=== PATIENT | male | born 1965 | race Caucasian/White ===

== ENCOUNTER → 2021-10-01 13:42 | Outpatient (BNVA) | payer MEDICAID, SELFPAY | PROVIDERS: PCP Pediatrics; Visit Provider Nurse Practitioner Family | DX: G20 Parkinson's disease (principal); G43.909 Migraine, unspecified, not intractable, without status migrainosus; G24.5 Blepharospasm; G47.52 REM sleep behavior disorder | CPT/HCPCS: 99212 ==

== ENCOUNTER → 2022-01-21 07:46 | Outpatient (BNVA) | payer OTHER, SELFPAY | PROVIDERS: PCP Internal Medicine Sports Medicine; Visit Provider Nurse Practitioner Family | DX: G20 Parkinson's disease (principal); G47.52 REM sleep behavior disorder; G43.909 Migraine, unspecified, not intractable, without status migrainosus; G24.5 Blepharospasm | CPT/HCPCS: 99212 ==

== ENCOUNTER → 2022-04-24 07:49 | Outpatient (BNVA) | payer OTHER, SELFPAY | PROVIDERS: PCP Internal Medicine Sports Medicine; Visit Provider Nurse Practitioner Family | DX: G20 Parkinson's disease (principal); G24.5 Blepharospasm; G43.909 Migraine, unspecified, not intractable, without status migrainosus; G47.52 REM sleep behavior disorder; Z79.899 Other long term (current) drug therapy | CPT/HCPCS: 99212 ==

== ENCOUNTER 2022-05-29 10:00 | Outpatient (RCR) | payer OTHER, SELFPAY ==
[2022-04-08 11:01] VITALS: BP 124/78; PULSE 93
--- NOTE | 2022-04-08 12:54 | MHC.PT.EP ---
[facility] [place] Office [place] Office [place] Office [address] Sandeep Faria [address] [phone] F: [phone] F: [phone] F: [phone] F: [phone] Physical Therapy Plan of Care Date of Evaluation: Date of Surgery: N/A Diagnosis: Parkinson Disease and Migraines Assessment: Hu is a 56 yo M referred to PT for Parkinson disease (diagnosed in 2019) and migraines. Upon exam his balance and functional capabilities are reported to be more of a concern then headaches. He receives assistance with all ADLs. He will occasionally go on walks in his yard and mow the lawn but does have a history of reported falls. He ambulates with a cane and reports he feels his R side is what causes him issues. Upon examination he presents with gross B weakness in LE and UE, decreased ROM in R hip, impaired balance and altered body mechanics. Hu will benefit from skilled PT to address the aforementioned impairments and work to maintain his functional capabilities. Frequency and Duration: The patient will be seen 2/ week for 6 weeks Short Term Goals: Patient will be able to stand with narrow base of support for 30 seconds without retro pulsing to increase stability while clothing and brushing teeth in 3 weeks. patient will perform TUG with a time of no greater then 14.8 seconds (decreasing risk of falls) in 3 weeks. 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 Patient will demonstrate a 1/2 increase in gross B hip strength to increase ability to ambulate for extended periods of time and on uneven surfaces in 6 weeks. Treatment Plan: Modalities to reduce pain, spasms and effusion. Manual therapy to restore motion and function. Therapeutic exercise to improve strength and flexibility. Neuromuscular re-education for posture and balance. Therapeutic activities to return to functional activities of daily living. Electronically signed by: Griselda Rosales PT DPT Please sign and return to therapist. Thank you for your referral.
--- NOTE | 2022-05-30 08:35 | MHC.PT.DC ---
[facility] [place] Office [place] Office [place] Office [address] Sandeep Faria [address] [phone] F: [phone] F: [phone] F: [phone] F: [phone] Physical Therapy Discharge Report Diagnosis: Parkinson Disease and Migraines Date of Surgery: N/A Date of Evaluation: 04/08/22 Date of Discharge: 05/30/22 Treatments to Date: 10 Cancellations to Date: 0 No Shows to Date: 0 Discharge Status: Achieved Goals Improved Function Independent with HEP Discharge Summary: Hu has completed 10 PT visits. He has improved significantly and is independent with all HEPs. He is therefore being d/c from PT. Electronically signed by: Griselda Rosales PT DPT Please sign and return to therapist. Thank you for your referral.
== END 2022-05-30 08:35 | disposition home or self-care (01) ==
LOC: HO.PT 10:00
PROVIDERS: Visit Provider Nurse Practitioner Family
DX: G20 Parkinson's disease (principal); G43.909 Migraine, unspecified, not intractable, without status migrainosus; G24.5 Blepharospasm
CPT/HCPCS: 97110; 97162; 97530

== ENCOUNTER → 2022-05-31 09:16 | Outpatient (BNVA) | payer OTHER, SELFPAY | PROVIDERS: PCP Internal Medicine Sports Medicine; Visit Provider Psychiatry & Neurology Neurology | DX: G24.5 Blepharospasm (principal) | CPT/HCPCS: 64612; 99211; J0585 ==

== ENCOUNTER → 2022-07-22 08:19 | Outpatient (BNVA) | payer OTHER, SELFPAY | PROVIDERS: PCP Internal Medicine Sports Medicine; Visit Provider Nurse Practitioner Family | DX: G20 Parkinson's disease (principal) | CPT/HCPCS: 99212 ==

== ENCOUNTER → 2022-09-02 10:24 | Outpatient (BNVA) | payer OTHER, SELFPAY | PROVIDERS: PCP Internal Medicine Sports Medicine; Visit Provider Psychiatry & Neurology Neurology | DX: G24.5 Blepharospasm (principal) | CPT/HCPCS: 64612; 99211; J0585 ==

== ENCOUNTER → 2022-12-19 07:48 | Outpatient (BNVA) | payer OTHER, SELFPAY | PROVIDERS: PCP Internal Medicine Sports Medicine; Visit Provider Psychiatry & Neurology Neurology | DX: G24.5 Blepharospasm (principal) | CPT/HCPCS: 64612; 99211; J0585 ==

== ENCOUNTER → 2023-01-28 07:40 | Outpatient (BNVA) | payer OTHER, SELFPAY | PROVIDERS: PCP Internal Medicine Sports Medicine; Visit Provider Nurse Practitioner Family | DX: G20 Parkinson's disease (principal); G47.52 REM sleep behavior disorder; G24.5 Blepharospasm; G43.909 Migraine, unspecified, not intractable, without status migrainosus; F32.A Depression, unspecified | CPT/HCPCS: 99212 ==

== ENCOUNTER → 2023-03-24 09:37 | Outpatient (BNVA) | payer OTHER, SELFPAY | PROVIDERS: PCP Internal Medicine Sports Medicine; Visit Provider Psychiatry & Neurology Neurology | DX: G24.5 Blepharospasm (principal) | CPT/HCPCS: 64612; 99211; J0585 ==

== ENCOUNTER 2023-06-03 10:09 | Outpatient (AMB) | payer OTHER, SELFPAY ==
--- NOTE | 2023-06-03 10:32 | A.OFFVIS_ITS ---
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 Allergies atorvastatin [From Lipitor] Allergy (Mild, Verified 06/03/23 10:33) pain Medication List - Last Reconciled 06/03/23 by HANNAH Gomez amlodipine 10 mg PO DAILY carbidopa-levodopa 25-100 mg ER 1 tab PO QID 90 days clonazepam 2 mg PO BEDTIME 30 days clonazepam 2 mg (2 x 1 mg) PO BEDTIME 30 days dulaglutide (Trulicity) 30 mg subcut QWEEK empagliflozin (Jardiance) 25 mg PO DAILY glipizide ER 10 mg PO BID ketorolac 0.5% 1 drp ophthalmic (eye) QID lancets ([employer] Delica Plus Lancet) As directed magnesium oxide 400 mg PO DAILY 30 days melatonin 10 mg PO DAILY metformin 1,000 mg PO .twice a day omeprazole 40 mg PO DAILY onabotulinumtoxinA (Botox) 100 units IM ONCE 12 weeks quetiapine 50 mg (2 x 25 mg) PO BEDTIME 90 days riboflavin (vitamin B2) 400 mg PO DAILY 30 days simvastatin 20 mg PO BEDTIME sumatriptan succinate take 1 tab at onset of headache; if no relief, may repeat 1 tab after at least 2 hrs; max = 2 tabs/24 hrs PO valsartan-hydrochlorothiazide 160-25 mg 1 tab PO DAILY HPI HPI Comments History of Present Illness Details 57-yr-old male presents for f/u visit, accompanied by his . Pt denies any significant interval medical changes. However, his PCP tried to start him on simvastatin, however he stopped it as it caused body pains. Pt's current PD medication regimen: Sinemet ER 25-100mg 1 tab 5am, 11am, 5pm, 9- 10pm Do medication effects last between doses:? Just lasting between doses ADL's: helping, has a shower bench Speech: Voice is changing- softer/slurred. Denies oral/throat pain. Swallowing: No issues. May bite his tongue at times. Cough: None Drooling: Yes Orthostatic lightheadedness: Yes- transient mild Constipation: Yes, a bit increased even w/ eating higher fiber foods. Considering trying Miralax. Freezing: At times. Stiffness: Can be more stiff, if more active, will be more sore the following day. His toes may feel tight, numb/tingly Tremor: Usually mild Gait/Falls: No falls. Hallucinations: He continues to have hallucinations- feels like someone is there but no one is. Memory: Can be forgetful, forgetting words, losing his train of thought- in Lao or [place] Island[place] Mood: Varies, feels less depressed, more easily frustrated/angry if people do not understand him. He has not seen a therapist yet.. Sleep: He is having some REM sleep behaviors. He may start to roll out of the bed- but the bedrail helps. He is compliant w/ clonazapem and quetiapine. Exercise: Does the previous PT exercises at times. Other: notes that he is having right lower facial spasms. Beofre starting botox- his symptoms were eye spasms. His migraine attacks are still right sided, lately not as strong but may last a few days. Sumatriptan is usually helpful. ? [facility] Medical History (Updated 06/03/23 @ 12:55 by HANNAH Gomez) Diabetes Family History Father Cancer Mother Hyperlipidemia Diabetes Social History (Updated 06/03/23 @ 10:39 by Angelina Teageu CMA) Alcohol intake: never Patient Tobacco Use Status: Former Tobacco user Tobacco use type: Cigar Cigarettes Per Day: 1 Review of Systems Const All systems reviewed & are unremarkable except as noted in HPI and below Physical Exam Vital Signs: Last Vital Signs Pulse 95 06/03/23 10:39 BP 120/78 06/03/23 10:39 Pulse Ox 97 06/03/23 10:39 Oxygen Delivery Method Room Air 06/03/23 10:39 Const General: cooperative and no acute distress Orientation/consciousness: patient oriented x3 HEENT Head: Yes normocephalic Resp Effort & Inspection: normal respiratory effort and able to speak in complete sentences Neuro Other: General:? Right facial asymmetry: eye decreased palpebral fissure- mild. Right lower facial droop. Right lower facial and less so right lower eyelid- twitching. Expression:? Decreased expression and blink Voice:? Soft voice, speech dysarthric Tremor:? No tremor noted today Tone:? Bilateral upper extremity tone more so on the right Dyskinesia:? None FFM:? Mild bradykinesia more so on right Foot taps:? Mild bradykinesia worse on right Gait:? Slow to stand, slight stooped, slightly decreased arm swing short steps steady with cane Psych:? Pleasant affect. 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 Code(s): G20 - Parkinson's disease (2) Blepharospasm of right eye: Comment: s/p right orbital fracture- managed w/ Botox by Dr Ambrose. Code(s): G24.5 - Blepharospasm (3) REM sleep behavior disorder: Code(s): G47.52 - REM sleep behavior disorder (4) Migraine, unspecified, not intractable, without status migrainosus: Comment: childhood onset Code(s): G43.909 - Migraine, unspecified, not intractable, without status migrainosus (5) Slurred speech: Code(s): R47.81 - Slurred speech (6) Hemifacial spasm of right side of face: Code(s): G51.31 - Clonic hemifacial spasm, right Plan Pt advised to undergo brain MRI w/wo- as pt now has slurred speech in addition to right facial assymetry/droop, right hemifascial spasm. 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 For right eye blepherospasm: Continue Botox up to 100 units in right eye/cheek muscles q 12 weeks- pt has f/u appt w/ Dr Hernandez. ? For Parkinson's and REM sleep behavior disorder: Continue Sinemet CR 25-100mg 1 tab QID- 5am, 11am, 5pm, 9pm. Continue Quetiapine 25mg- 2 tabs (50mg) qhs- monitor hallucinations. Continue Melatonin 10mg. Continue Clonazepam to 2 mg for REM sleep behaviors. For constipation- Continue dietary fiber, taking prunes/prune juice. Trial Miralax prn. For lightheadedness prevention- take 1 small bottle sports drink in am. For mood- therapy as ordered- pt is on waiting list. Baseline neuropsych eval pending. Try to increase exercise- walking, PT exercises, goal of > 30 minutes per day. Future considerations: Nuplazid, Rytary. ? For Migraine- Continue Sumatriptan prn. Orders: Orders MR head/brain wo/w con Today G51.31 - Clonic hemifacial spasm, right, R29.810 - Facial weakness, R47.81 - Slurred speech Basic Metabolic Panel Today E11.9 - Type 2 diabetes mellitus without complications Medications: New polyethylene glycol 3350 (Miralax) 17 grams PO DAILY PRN 510 grams 3RF constipation 30 days Coding Level of Care Code Est Pt Level 4 (00504) Diagnoses Parkinson disease G20 Blepharospasm of right eye G24.5 REM sleep behavior disorder G47.52 Migraine, unspecified, not intractable, without status migrainosus G43.909 Slurred speech R47.81 Hemifacial spasm of right side of face G51.31
[2023-06-03 10:39] VITALS: BP 120/78; PULSE 95; O2SAT 97
== END 2023-06-03 11:41 | disposition home or self-care (01) ==
PROVIDERS: Visit Provider Nurse Practitioner Family
DX: G20 Parkinson's disease (principal); G24.5 Blepharospasm; G47.52 REM sleep behavior disorder; G43.909 Migraine, unspecified, not intractable, without status migrainosus; R47.81 Slurred speech; G51.31 Clonic hemifacial spasm, right
CPT/HCPCS: 99214

== ENCOUNTER → 2023-06-03 10:09 | Outpatient (BNVA) | payer OTHER, SELFPAY | PROVIDERS: Visit Provider Nurse Practitioner Family | DX: G20 Parkinson's disease (principal); G24.5 Blepharospasm; G47.52 REM sleep behavior disorder; G43.909 Migraine, unspecified, not intractable, without status migrainosus; R47.81 Slurred speech; G51.31 Clonic hemifacial spasm, right; Z79.899 Other long term (current) drug therapy | CPT/HCPCS: 99212 ==

== ENCOUNTER 2023-07-09 16:41 | Outpatient (REF) | payer OTHER, SELFPAY ==
--- NOTE | ~2023-07-09 | MR_ITS ---
EXAMINATION: MR BRAIN WITHOUT AND WITH CONTRAST CLINICAL INFORMATION: Slurred speech. COMPARISON: None available. TECHNIQUE: Multiplanar, multisequence MRI of the brain was obtained before and after the intravenous administration of 10 mL Gadavist. FINDINGS: No abnormal intraparenchymal enhancement. There is apparent thickening of the left superior parietal gyrus cortex with mild blurring of the jacobson-white matter junction. There. No discrete internal mass identified. This area appears to extend superiorly and posteriorly into probable arachnoid granulations. No definitive defect through the cranium is identified. No acute intracranial hemorrhage or infarct. Suggestion of chronic infarct in the right basal ganglia. Scattered and confluent periventricular white matter T2/FLAIR hyperintensities, nonspecific however commonly seen with small vessel ischemic disease. No midline shift or hydrocephalus. No acute extra-axial fluid collections. The osseous structures are unremarkable. The pituitary gland, pineal gland and remaining midline structures are unremarkable. No orbital pathology. Mild mucosal thickening of the paranasal sinuses. The mastoid air cells are clear. MR/MR head/brain wo/w con IMPRESSION: -No acute intracranial abnormality. -Apparent thickening of the left superior parietal gyrus cortex with mild blurring of the jacobson-white matter junction. 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 Additionally, there is suggestion of this abnormal cortex herniating into arachnoid granulations. Several digital small foci of brain herniation into arachnoid granulations are seen along the frontoparietal convexity. Recommend 3T MRI brain without contrast for better evaluation of cortex/white matter in this region.
[2023-07-09] MEDS: gadobutroL 10 ML VIAL IVPUSH (17:28)
== END 2023-07-09 16:42 | disposition home or self-care (01) ==
LOC: HO.MRI 16:41
PROVIDERS: PCP Internal Medicine Sports Medicine; Visit Provider Nurse Practitioner Family
DX: R47.81 Slurred speech (principal); G51.31 Clonic hemifacial spasm, right; R29.810 Facial weakness
CPT/HCPCS: 70553; A9585

== ENCOUNTER 2023-07-29 10:09 | Outpatient (AMB) | payer OTHER, SELFPAY ==
--- NOTE | 2023-07-29 10:18 | A.OFFVIS_ITS ---
Intake Vital Signs 07/29/23 10:20 Height 5 ft 10 in Weight 213 lb 2 oz BMI 30.6 BP 118/72 Blood Pressure Location Lt brachial Position Sitting Respiration 17 Pulse 94 Pulse Source Pulse Oximeter Pulse Oximetry (%) 97 Oxygen Delivery Method Room Air Intake Visit Reasons: Botox-confirmed Intake Note: Pt presents to the office for Botox injections. 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 Allergies atorvastatin [From Lipitor] Allergy (Mild, Verified 07/29/23 10:19) pain Medication List - Last Reconciled 07/29/23 by Taryn Hernandez MD amlodipine 10 mg PO DAILY carbidopa-levodopa 25-100 mg ER 1 tab PO QID 90 days clonazepam 2 mg PO BEDTIME 30 days clonazepam 2 mg (2 x 1 mg) PO BEDTIME 30 days dulaglutide (Trulicity) 30 mg subcut QWEEK empagliflozin (Jardiance) 25 mg PO DAILY glipizide ER 10 mg PO BID ketorolac 0.5% 1 drp ophthalmic (eye) QID lancets ([employer] Delica Plus Lancet) As directed magnesium oxide 400 mg PO DAILY 30 days melatonin 10 mg PO DAILY metformin 1,000 mg PO .twice a day omeprazole 40 mg PO DAILY onabotulinumtoxinA (Botox) 100 units IM ONCE 12 weeks polyethylene glycol 3350 (Miralax) 17 grams PO DAILY PRN 30 days quetiapine 50 mg (2 x 25 mg) PO BEDTIME 90 days riboflavin (vitamin B2) 400 mg PO DAILY 30 days simvastatin 20 mg PO BEDTIME sumatriptan succinate take 1 tab at onset of headache; if no relief, may repeat 1 tab after at least 2 hrs; max = 2 tabs/24 hrs PO valsartan-hydrochlorothiazide 160-25 mg 1 tab PO DAILY HPI HPI Comments History of Present Illness Details 58y/o male comes for treatment of her bl epherospasm , hemifacial spasm with botox Botulinum toxin type A Lot no C [id number] X 1 Exp 10/2025 was diluted with 1 cc of normal saline at a concentration of 10units in 0.1 cc. Side effects were discussed and an informed consent was obtained. Muscles injected Right Lateral canthus - 15 units Right Lateral Lower eyelid-15units Right Medial lower eyelid- 5 units Right Nasolabial fold 5 units Right zygomaticus 10 units right lower lip 5 units Total used 55 units discarded 45 units PFSH Medical History Diabetes Family History Father Cancer Mother Hyperlipidemia Diabetes Social History Alcohol intake: never Patient Tobacco Use Status: Former Tobacco user Tobacco use type: Cigar Cigarettes Per Day: 1 Physical Exam Vital Signs: Last Vital Signs Pulse 94 07/29/23 10:20 Resp 17 07/29/23 10:20 BP 118/72 07/29/23 10:20 Pulse Ox 97 07/29/23 10:20 Oxygen Delivery Method Room Air 07/29/23 10:20 BMI result Body Mass Index 30.6 Neuro Other: Right Hemifacial spasm Office Procedures Botulinum toxin Injection 05468 - Facial Nerve Procedure code (CPT) selection complete Office Meds onabotulinumtoxinA 100 unit solution for injection Performing Provider: Taryn Hernandez MD Performing Location: [facility] Administered by: Taryn Hernandez MD on 07/29/23 11:12 Dose Route Admin Location Dispensed Lot Number Expiration Date [facility] Infectious Diseases Physician 100 unit subcut 100 units [id number] 10/30/25 [id number] [id number] Comments: see HPI Assessment & Plan Assessment & Plan (1) Blepharospasm of right eye: Comment: s/p right orbital fracture- managed w/ Botox by Dr Ambrose. Code(s): G24.5 - Blepharospasm Plan Patient tolerated the procedure well. He will call with any side effects Orders: Orders AMB Botulinum toxin Injection Today G51.31 - Clonic hemifacial spasm, right Coding Level of Care Code Est Pt Level 1 (11053) Diagnoses Blepharospasm of right eye G24.5 CPT Codes Botox Injection - Botox 2: 19953 - Facial Nerve ([id number])
[2023-07-29 10:20] VITALS: BP 118/72; PULSE 94; RESP 17; O2SAT 97; BMI 30.6
== END 2023-07-29 10:55 | disposition home or self-care (01) ==
PROVIDERS: PCP Internal Medicine Sports Medicine; Visit Provider Psychiatry & Neurology Neurology
DX: G24.5 Blepharospasm (principal)
CPT/HCPCS: 64612

== ENCOUNTER → 2023-07-29 10:09 | Outpatient (BNVA) | payer OTHER, SELFPAY | PROVIDERS: PCP Internal Medicine Sports Medicine; Visit Provider Psychiatry & Neurology Neurology | DX: G24.5 Blepharospasm (principal) | CPT/HCPCS: 64612; 99211; J0585 ==

== ENCOUNTER 2023-09-04 10:07 | Outpatient (REF) | payer OTHER, SELFPAY ==
--- NOTE | ~2023-09-04 | US_ITS ---
EXAMINATION: US EXTRACRANIAL CAROTID DUPLEX, BILATERAL CLINICAL INFORMATION: Weakness right face, intracranial carotid stenosis. Diabetes and hyperlipidemia. COMPARISON: None available. TECHNIQUE: Real-time ultrasound and Doppler techniques (integrating B-mode 2-D vascular images, Doppler spectral analysis and color-flow Doppler imaging) were utilized to interrogate the extracranial carotid arteries, the vertebral arteries and proximal subclavian arteries bilaterally. The degree of stenosis is determined by criteria similar to NASCET. FINDINGS: Right Side: 1. There is no atherosclerotic plaque seen in the bifurcation/proximal ICA region. 2. The common carotid artery PSV proximally is 120 cm/s and distally 86 cm/s. 3. The proximal internal carotid artery velocities are 56 cm/s systolic and 18 cm/s diastolic. 4. The proximal external carotid artery PSV is 101 cm/s. 5. The vertebral artery shows antegrade flow. 6. The subclavian artery waveforms are normal. Left Side: 1. There is no atherosclerotic plaque seen in the bifurcation/proximal ICA region. 2. The common carotid artery PSV proximally is 107 cm/s and distally 94 cm/s. 3. The proximal internal carotid artery velocities are 53 cm/s systolic and 8 cm/s diastolic. 4. The proximal external carotid artery PSV is 92 cm/s. 5. The vertebral artery shows antegrade flow. 6. The subclavian artery waveforms are normal. US/US carotid duplex BI IMPRESSION: 1. RIGHT: Normal right internal carotid artery without atherosclerotic plaque or hemodynamically significant stenosis. 2. LEFT: Normal left internal carotid artery without atherosclerotic plaque or hemodynamically significant stenosis.
== END 2023-09-04 10:08 | disposition home or self-care (01) ==
LOC: HO.HMGCX 10:07
PROVIDERS: PCP Internal Medicine Sports Medicine; Visit Provider Nurse Practitioner Family
DX: R29.810 Facial weakness (principal); I65.29 Occlusion and stenosis of unspecified carotid artery; E78.5 Hyperlipidemia, unspecified; E11.9 Type 2 diabetes mellitus without complications
CPT/HCPCS: 93880

== ENCOUNTER 2023-09-24 09:10 | Outpatient (AMB) | payer OTHER, SELFPAY ==
[2023-09-24 09:34] VITALS: BP 130/88; PULSE 94; O2SAT 95; BMI 30.8
--- NOTE | 2023-09-24 09:34 | A.OFFVIS_ITS ---
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: No Accompanied by: Spouse Allergies atorvastatin [From Lipitor] Allergy (Mild, Verified 09/24/23 09:36) pain Medication List - Last Reconciled 09/24/23 by HANNAH Gomez amlodipine 10 mg PO DAILY carbidopa-levodopa 25-100 mg ER 1 tab PO QID 90 days clonazepam 2 mg PO BEDTIME 30 days dulaglutide (Trulicity) 3 mg subcut QWEEK empagliflozin (Jardiance) 25 mg PO DAILY ezetimibe 10 mg PO DAILY glipizide ER 10 mg PO BID ketorolac 0.5% 1 drp ophthalmic (eye) QID lancets ([employer] Delica Plus Lancet) As directed magnesium oxide 400 mg PO DAILY 30 days melatonin 10 mg PO DAILY PRN metformin 1,000 mg PO .twice a day omeprazole 40 mg PO DAILY onabotulinumtoxinA (Botox) 100 units IM ONCE 12 weeks polyethylene glycol 3350 (Miralax) 17 grams PO DAILY PRN 30 days quetiapine 50 mg (2 x 25 mg) PO BEDTIME 90 days riboflavin (vitamin B2) 400 mg PO DAILY 30 days sumatriptan succinate take 1 tab at onset of headache; if no relief, may repeat 1 tab after at least 2 hrs; max = 2 tabs/24 hrs PO valsartan-hydrochlorothiazide 160-25 mg 1 tab PO DAILY HPI HPI Comments History of Present Illness Details 58-yr-old male presents for f/u visit, a ccompanied by his . 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 And abnormal cortex herniating into arachnoid granulations w/ several digital small foci of brain herniation into arachnoid granulations along the frontoparietal convexity. Pt then underwent f/u MRI brain w/o w/ focus on parietal/cortex region- which showed thickening of the gyri with loss of jacobson-white differentiation in the left superior medial parietal cortex w/o edema. Cortex slightly herniates into a skull defect in this area, w/o calvarium erosion, but the defect extends through the inner and outer tables to the scalp. This defect has enlarged since the study dated 11/16/2013. Findings suggestive of a hemangioma. Pt was referred to Dr Magana, neurosurgeon, and advised to undergo CTA head to determine if there are vascular connections between the left superior medial parietal cortex and the presumed hemangioma. Unfortunately, report did not specifically address this. However, it did report a 50% stenosis supraclinoid of Right ICA. Pt brings a copy of Dr Brantley last notes, which states that she planned to reach out to the radiologist at [email or web address] to discuss this specific concern as this will affect tx decision. Pt is worried that they have not heard anything yet on this. He can still have episodes of slurred speech and freezing in his speech. Still having some right lower facial spasms. Before starting botox- his symptoms were eye spasms. Pt reports he has been having a mild, aching, tender constant headache x's past 3-4 months- starts in the right religion and moves linearly to the upper back of the head. A/w some right eye blurring and difficulty tracking. Not a/w photophobia, phonophobia. Uisng Tylenol prn. This is different than his typical migraine which is a/w photophobia, phonophobia, activity intolerance, blurry vision. Pt's current PD medication regimen: CD-LD ER 25-100mg 1 tab qid- 5am, 11am, 5pm, 9pm, Clonazepam 2mg qhs, quetiapine 50mg qhs. Do medication effects last between doses: Sometimes may start shaking prior to next dose. Feels Parkinson's is overall stable, but gradually progressing. ADL's: helping, has a shower bench Speech: Voice- softer/slurred. Denies oral/throat pain. Swallowing: Some difficulty swallowing- coughing even on fluids. May bite his tongue at times while chewing Cough: None Drooling: Yes Orthostatic lightheadedness: Yes- transient mild Constipation: Stable- eating higher fiber foods and Miralax helps. Freezing: At times. Stiffness: Some stiffness- especially in shoulders. Tremor: Usually mild Gait/Falls: No falls. Using a cane Hallucinations: He continues to have hallucinations- feels like someone is there but no one is. Memory: Can be forgetful, forgetting words, losing his train of thought- in Maltese or Azeri Mood: Varies, feels less depressed, more easily frustrated/angry if people do not understand him. He has not seen a therapist yet.. Sleep: He is having some REM sleep behaviors. Once found him just sitting up in bed- he did not why. He is compliant w/ clonazapem and quetiapine. Exercise: Not doing his PT exercises as much. States his statin tx- caused body aches, making it difficult. 09/04/23, US/US carotid duplex BI IMPRESSION: 1. RIGHT: Normal right internal carotid artery without atherosclerotic plaque or hemodynamically significant stenosis. 2. LEFT: Normal left internal carotid ar mary ellen without atherosclerotic plaque or hemodynamically significant stenosis. 08/19/23, CTA head w/ contrast: IMPRESSION: Atherosclerosis of the intracranial internal carotid arteries resulting in approximate 50% stenosis supraclinoid RIGHT internal carotid artery. No additional significant stenosis or findings of aneurysm. The remainder intracranial vasculature without significant stenosis or aneurysm. No findings of an acute intracranial process. 07/30/23, Brain MRI w/o contrast: IMPRESSION: There is thickening of the gyri with loss of jacosbon-white differentiation in the left superior medial parietal cortex. This was described in the previous report dated 06/29/2023. This was not present on the s tudy dated 11/16/2013. There is no edema. The cortex slightly herniates into a skull defect in this area. The calvarium does not appear to be eroded, but the defect does extend through the inner and outer tables to the scalp. This defect has enlarged since the study dated 11/16/2013. The etiology of this is unclear. I suspect this may represent a hemangioma of the calvarium. Perhaps this shares a vascular supply with the underlying brain parenchyma, possibly causing the parenchymal changes and possibly even the slurred speech symptoms noted on the previous MRI. A contrast enhanced MRI and/or CTA may be helpful for further evaluation. 07/09/23, MRI brain w/wo contrast: MR/MR head/brain wo/w con IMPRESSION: -No acute intracranial abnormality. -Apparent thickening of the left superio r parietal gyrus cortex with mild blurring of the jacobson-white matter junction. 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 Additionally, there is suggestion of this abnormal cortex herniating into arachnoid granulations. Several digital small foci of brain herniation into arachnoid granulations are seen along the frontoparietal convexity. Recommend 3T MRI brain without contrast for better evaluation of cortex/white matter in this region. [facility] Medical History (Updated 09/24/23 @ 22:34 by HANNAH Gomez) Parkinson disease Diabetes Surgical History (Updated 09/24/23 @ 09:42 by Sunshine Hernandez MA) H/O hernia repair History of vasectomy History of carpal tunnel release Family History Father Cancer Mother Hyperlipidemia Diabetes Social History Alcohol intake: never Patient Tobacco Use Status: Former Tobacco user Tobacco use type: Cigar Cigarettes Per Day: 1 Review of Systems Const All systems reviewed & are unremarkable except as noted in HPI and below Physical Exam Vital Signs: Last Vital Signs Pulse 94 09/24/23 09:34 BP 130/88 09/24/23 09:34 Pulse Ox 95 09/24/23 09:34 Oxygen Delivery Method Room Air 09/24/23 09:34 BMI result Body Mass Index 30.8 Const General: cooperative and no acute distress Resp Effort & Inspection: normal respiratory effort and able to speak in complete sentences Neuro Other: General:? A&O x's 3. Right facial asymmetry: eye decreased palpebral fissure- mild. Right lower facial droop. Right eye and lower face- no twitching seen today. Expression:? Decreased expression and blink Voice/Speech:? Soft voice, mild dysarthria, occasional bradyphrenia Tremor:? No tremor noted today Tone:? Bilateral upper extremity tone more so on the right Dyskinesia:? None FFM:? Mild bradykinesia more so on right Foot taps:? Mild bradykinesia worse on right Gait:? Slow to stand, slight stooped, slightly decreased arm swing short steps steady with cane Psych:? Pleasant affect. Assessment & Plan Assessment & Plan (1) Swallowing difficulty: Code(s): R13.10 - Dysphagia, unspecified (2) Tongue biting: Code(s): K14.8 - Other diseases of tongue (3) Cognitive dysfunction: Code(s): F09 - Unspecified mental disorder due to known physiological condition (4) Hemifacial spasm of right side of face: Code(s): G51.31 - Clonic hemifacial spasm, right (5) Parkinson's disease without dyskinesia: Code(s): G20.A1 - Parkinson's disease without dyskinesia, without mention of fluctuations (6) REM sleep behavior disorder: Code(s): G47.52 - REM sleep behavior disorder (7) Abnormal finding on MRI of brain: Comment: left superior medial parietal cortex 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 We will f/u w/ Dr Magana- ? if she has been able to clarify CTA results. Upon review, pt may wish to have 2nd opinion. Monito new onset headache, slurred speech, cogntive difficulties. For right eye blepherospasm: Continue Botox up to 100 units in right eye/cheek muscles q 12 weeks- pt has f/u appt w/ Dr Hernandez. ? For Parkinson's and REM sleep behavior disorder: Increase Sinemet CR 25-100mg from 1 tab QID- 5am, 11am, 5pm, 9pm to 1 tab 5 x's per day- 5am, 9am, 1pm, 5pm, 9pm- in hopes this reduces cognitive diff, bradyphrenia, tremor, swallowing issues. Continue Quetiapine 25mg- 2 tabs (50mg) qhs- monitor hallucinations. Continue Melatonin 10mg. Continue Clonazepam to 2 mg for REM sleep behaviors. Start MILLWRIGHT INSTRUCTOR- for eval of chewing, swallowing and cognitive difficulties. For constipation- Continue dietary fiber, taking prunes/prune juice. Miralax prn. For lightheadedness prevention- take 1 small bottle sports drink in am. For mood- therapy as ordered- pt is on waiting list. Baseline neuropsych eval pending. Try to increase exercise- walking, PT exercises, goal of > 30 minutes per day. Future considerations: Nuplazid, Rytary. ? For Migraine- Continue Sumatriptan prn. Orders: Referrals Speech and Hearing Referral F09 - Unspecified mental disorder due to known physiological condition, G20 - Parkinson's disease, G51.31 - Clonic hemifacial spasm, right, K14.8 - Other diseases of tongue, R13.10 - Dysphagia, unspecified Medications: Changed From carbidopa-levodopa 25-100 mg ER 1 tab PO QID 90 days 360 tabs 2RF To carbidopa-levodopa 25-100 mg ER 1 tab orally 5 x's per day; 90 days 450 tabs 2RF Coding Level of Care Code Est Pt Level 5 (80675) Diagnoses Swallowing difficulty R13.10 Tongue biting K14.8 Cognitive dysfunction F09 Hemifacial spasm of right side of face G51.31 Parkinson's disease without dyskinesia G20.A1 REM sleep behavior disorder G47.52 Abnormal finding on MRI of brain R90.89 Time Spent (min) 65 Comment 45 min spent directly w/ pt, > 20 min spent reviewing chart, imaging, notes, documenting
== END 2023-09-24 11:03 | disposition home or self-care (01) ==
PROVIDERS: PCP Internal Medicine Sports Medicine; Visit Provider Nurse Practitioner Family
DX: G20.A2 Parkinson's disease without dyskinesia, with fluctuations (principal); R13.10 Dysphagia, unspecified; G51.31 Clonic hemifacial spasm, right; R90.89 Other abnormal findings on diagnostic imaging of central nervous system; K14.8 Other diseases of tongue; R41.89 Other symptoms and signs involving cognitive functions and awareness; G47.52 REM sleep behavior disorder
CPT/HCPCS: 99215

== ENCOUNTER → 2023-09-24 09:10 | Outpatient (BNVA) | payer OTHER, SELFPAY | PROVIDERS: PCP Internal Medicine Sports Medicine; Visit Provider Nurse Practitioner Family | DX: R13.10 Dysphagia, unspecified (principal); G20.A1 Parkinson's disease without dyskinesia, without mention of fluctuations; K14.8 Other diseases of tongue; F09 Unspecified mental disorder due to known physiological condition; G51.31 Clonic hemifacial spasm, right; G47.52 REM sleep behavior disorder; R90.89 Other abnormal findings on diagnostic imaging of central nervous system | CPT/HCPCS: 99212 ==

== ENCOUNTER 2023-10-29 07:45 | Outpatient (AMB) | payer OTHER, SELFPAY ==
--- NOTE | 2023-10-29 07:49 | MHC.OFFVIS ---
Intake Vital Signs 10/29/23 07:50 Weight 215 lb 2 oz BP 112/76 Blood Pressure Location Rt brachial Position Sitting Respiration 17 Pulse 89 Pulse Source Pulse Oximeter Pulse Oximetry (%) 98 Oxygen Delivery Method Room Air Intake Visit Reasons: Botox appt-CONFIRMED Intake Note: Pt presents for Botox injections. 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 Allergies atorvastatin [From Lipitor] Allergy (Mild, Verified 10/29/23 07:49) pain Medication List - Last Reconciled 10/29/23 by Taryn Hernandez MD amlodipine 10 mg PO DAILY carbidopa-levodopa 25-100 mg ER 1 tab orally 5 x's per day; 90 days clonazepam 2 mg PO BEDTIME 30 days dulaglutide (Trulicity) 3 mg subcut QWEEK empagliflozin (Jardiance) 25 mg PO DAILY ezetimibe 10 mg PO DAILY glipizide ER 10 mg PO BID ketorolac 0.5% 1 drp ophthalmic (eye) QID lancets ([employer] Delica Plus Lancet) As directed magnesium oxide 400 mg PO DAILY 30 days melatonin 10 mg PO DAILY PRN metformin 1,000 mg PO .twice a day omeprazole 40 mg PO DAILY onabotulinumtoxinA (Botox) 100 units IM ONCE 12 weeks polyethylene glycol 3350 (Miralax) 17 grams PO DAILY PRN 30 days quetiapine 50 mg (2 x 25 mg) PO BEDTIME 90 days riboflavin (vitamin B2) 400 mg PO DAILY 30 days sumatriptan succinate take 1 tab at onset of headache; if no relief, may repeat 1 tab after at least 2 hrs; max = 2 tabs/24 hrs orally PRN; 30 days valsartan-hydrochlorothiazide 160-25 mg 1 tab PO DAILY HPI HPI Comments History of Present Illness Details 58y/o male comes for treatment of her blepherospasm , hemifacial spasm with botox Effectiveness of last two botox: Change in intensity of spasms-decreased Change in frequency of spasms-decreased Changes in quality of life-improved Have at least three months elapsed since last treatment (Last botox date - frequency of injections) 07/29/71 Botulinum toxin type A Lot no C [id number] X 1 Exp 12/2025 was diluted with 1 cc of normal saline at a concentration of 10units in 0.1 cc. Side effects were discussed and an informed consent was obtained. Muscles injected Right Lateral canthus - 15 units Right Lateral Lower eyelid-15units Right Medial lower eyelid- 5 units Right Nasolabial fold 5 units Right zygomaticus 10 units right lower lip 5 units Total used 55 units discarded 45 units PFSH Medical History Parkinson disease Diabetes Surgical History H/O hernia repair History of vasectomy History of carpal tunnel release Family History Father Cancer Mother Hyperlipidemia Diabetes Social History Alcohol intake: never Patient Tobacco Use Status: Former Tobacco user Tobacco use type: Cigar Cigarettes Per Day: 1 Physical Exam Vital Signs: Last Vital Signs Pulse 89 10/29/23 07:50 Resp 17 10/29/23 07:50 BP 112/76 10/29/23 07:50 Pulse Ox 98 10/29/23 07:50 Oxygen Delivery Method Room Air 10/29/23 07:50 Neuro Other: Right Hemifacial spasm Office Procedures Botulinum toxin Injection 32283 - Facial Nerve Procedure code (CPT) selection complete Office Meds onabotulinumtoxinA 100 unit solution for injection Performing Provider: Taryn Hernandez MD Performing Location: [facility] Administered by: Taryn Hernandez MD on 10/29/23 10:36 Dose Route Admin Location Dispensed Lot Number Expiration Date [facility] [employer]umping [employer] Supervisor 45 unit IM 100 units [id number] 12/28/25 4725-9078-07 ALLERGAN/BOTOX Comments: see hpi Assessment & Plan Assessment & Plan (1) Blepharospasm of right eye: Comment: s/p right orbital fracture- managed w/ Botox by Dr Ambrose. Code(s): G24.5 - Blepharospasm Plan Patient tolerated the procedure well. He will call with any side effects Orders: Orders AMB Botulinum toxin Injection Today G51.31 - Clonic hemifacial spasm, right Coding Level of Care Code Est Pt Level 1 (09804) Diagnoses Blepharospasm of right eye G24.5 CPT Codes Botox Injection - Botox 2: 35952 - Facial Nerve ([id number])
[2023-10-29 07:50] VITALS: BP 112/76; PULSE 89; RESP 17; O2SAT 98
== END 2023-10-29 08:27 | disposition home or self-care (01) ==
PROVIDERS: PCP Internal Medicine Sports Medicine; Visit Provider Psychiatry & Neurology Neurology
DX: G51.31 Clonic hemifacial spasm, right (principal); G24.5 Blepharospasm
CPT/HCPCS: 64612

== ENCOUNTER → 2023-10-29 07:45 | Outpatient (BNVA) | payer OTHER, SELFPAY | PROVIDERS: PCP Internal Medicine Sports Medicine; Visit Provider Psychiatry & Neurology Neurology | DX: G24.5 Blepharospasm (principal) | CPT/HCPCS: 64612; 99211; J0585 ==

== ENCOUNTER 2023-11-03 12:35 | Outpatient (RCR) | payer OTHER, SELFPAY ==
--- NOTE | 2023-11-07 11:47 | MHC.SP.ADU ---
Referring provider: HANNAH Gomez Reason for Referral: Cognitive difficulties Type of Treatment: 70873 Evaluation Speech Sound Production WITH Language Date of Plan of Treatment: 11/03/23 Onset of Symptoms/Illness: 09/24/23 Date Treatment Started: 11/03/23 Medical Diagnosis: Parkinson's Diabetes Primary Speech Language Diagnosis: R41.841 Cognitive communication disorder Secondary Speech Language Diagnosis: R13.12 Oropharyngeal Phase Dysphagia History Hu is a 58 year-old retired who comes to us today with increasing difficulty with verbal fluency and cognitive processing issues. He is referred by HANNAH Gomez of [facility]. He reports a prolonged progression in symptoms including, taking my time with Speech, visual hallucinations, and tinnitus. He has right facial droop following a broken orbital bone with nerve damage which is being treated with botox. He was discovered to have a hole in my skull during a recent MRI. 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 And abnormal cortex herniating into arachnoid granulations w/ several digital small foci of brain herniation into arachnoid granulations along the frontoparietal convexity. Pt then underwent f/u MRI brain w/o w/ focus on parietal/cortex region- which showed thickening of the gyri with loss of jacobson-white differentiation in the left superior medial parietal cortex w/o edema. Cortex slightly herniates into a skull defect in this area, w/o calvarium erosion, but the defect extends through the inner and outer tables to the scalp. This defect has enlarged since the study dated 11/16/2013. Findings suggestive of a hemangioma. His treatment for this condition is pending. He lives at home with his and Daughter. 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 He reports increased dysphagia as well, characterized by coughing, at least every day, on thin liquids. Additionally he reports frequent biting of his tongue. A modified barium swallow study (MBSS) is recommended to further investigate these issues. Medical History: Respiratory Needs: Room Air Patient Orientation: Alert & Oriented x 4 Social History: Employment Status: Retired Highest level of education obtained: Completed High School/GED Past Speech Language Therapy: None reported. Swallowing History: Dysphagia Specific: Oralpharyngeal Dysphagia Dysphagia Nonspecific Comments: MBSS requested from referring provider. Pre-eval Risk for Aspiration: Neurological Condition Reduced Cognition Pre-evaluation Dietary Consistencies: Regular Pre-eval Liquid Intake: Thin Pre-eval Medication Intake: Whole with Liquid Reported Speech, Language, Cognition difficulties: Attention Memory Cognition Assessment Speech Production: Slow Informal Voice Assessment: Voice Loudness: Normal Mildly Loud Voice Phonatory-based Quality: Normal Voice Pitch: Normal Tests of Cognition: RBANS Clinical Impression: Impaired Hu participated in the RBANS - Form B. Form A was unavailable at the time of testing. His scores are reported as follows: I.) Immediate Memory Index: 97 Ia.) List Learning: -- Scaled Score: 9 Ib.) Story Memory: -- Scaled Score: 11 II.) Visuospatial/Constructional Index: 92 IIa.) Figure/Copy: -- Scaled Score: 5 IIb.) Line Orientation: -- Percentile Group: >75 III.) Language Index: 87 IIIa.) Picture Naming: -- Percentile Group: 51-75 IIIb.) Semantic Fluency: -- Scaled Score: 7 IV.) Attention Index: 75 Cb.) Digit Span: -- Scaled Score: 7 IVb.) Coding: -- Scaled Score: 5 V.) Delayed Memory Index: 110 Va.) List Recall: -- Percentile Group: 26-50 Vb.) List Recognition: -- Percentile Group: 26-50 Vc.) Story Recall: -- Scaled Score: 11 Vd.) Figure Recall: -- Scaled Score: 14 Total Scale Score: 88 (%ile: 21) Impressions and Recommendations Prognosis for Improvement: Good Recommendation for Speech Therapy: Hu's performance and reported symptoms are consistent with a mild cognitive impairment. His relative deficit in attention is likely tied to delayed processing secondary to his Parkinson's. He will benefit from skilled outpatient Cognitive-Linguistic Therapy to train coping strategies and improve memory and attention abilities. I recommend he receive a Modified Barium Swallow Study to assess his issues with Dysphagia. Any goals related to swallowing will be added to his plan of care after that time. We reviewed the results on the day of testing and both he and his are motivated to pursue treatment. Frequency/Duration: 1 x week x 12 weeks Date Range for Service Requested: 11/03/23 Time to Reassess: 3 months Longterm Goals: LTG1: Pt will improve attention and processing skills with use of compensatory strategies. Short Term Goals: Goal # : STG1: Pt will demonstrate knowledge of the 5 attention types with >80% accuracy independently. Goal Status: New Goal Goal# : STG2: Pt will complete complex logic puzzles with use of compensatory strategies with >80% accuracy. Goal Status: New Goal Goal # : STG3: Pt will increase short-term recall of 5 item lists with >80% accuracy and minimal assistance. Goal Status: New Goal Goal # : STG4: Pt/Caregiver will complete weekly assigned HEP tasks with >80% accuracy independently. Goal Status: New Goal Recommended Referrals to be Discussed with Primary Care Provider: Neuropsychological Eval Recommend comprehensive neuropsych eval to further assess cognitive changes and provided baseline. Patient Education: Completed: Yes Patient/Caregiver Education: Described Results of Evaluation Patient expressed understanding of evaluation Patient agrees with goals and treatment plan Family/Caregivers expressed understanding of results Family/Caregivers expressed agreement with goals and treatment plan Tape Cutting Machine Operator Clinican/Clinical Fellow: No Supervisory Statement: N/A Speech Language Pathologist: Migel Swain M.A., CCC-HI LIFT OPERATOR
== END 2023-11-26 14:00 | disposition still patient (30) ==
LOC: HO.SH 12:35
PROVIDERS: Visit Provider Nurse Practitioner Family
DX: G20.A1 Parkinson's disease without dyskinesia, without mention of fluctuations (principal); G51.31 Clonic hemifacial spasm, right; R13.10 Dysphagia, unspecified; K14.8 Other diseases of tongue; F09 Unspecified mental disorder due to known physiological condition
CPT/HCPCS: 92523

== ENCOUNTER 2023-12-03 10:07 | Outpatient (REF) | payer OTHER, SELFPAY ==
--- NOTE | ~2023-12-03 | FL_ITS ---
EXAMINATION: Modified Barium Swallow CLINICAL INFORMATION: Dysphagia COMPARISON: No prior. TECHNIQUE: Modified barium swallow was performed under lateral fluoroscopy with patient in standing position. Patient was given barium mixed with liquids and solids of differing consistencies by the speech pathologist. Examination was recorded in the fluoroscopy suite. FINDINGS: No evidence of laryngeal penetration or aspiration was seen during this examination. FLUOROSCOPY TIME: 1 minute 10 seconds Number of Spot Images: 1 DOSE AREA PRODUCT: 1072 uGy-m2 (microgray-meter squared) FL/FL barium swallow modified IMPRESSION: No evidence of laryngeal penetration or aspiration was seen during this examination. Refer to the full speech therapy report for further clarification This procedure was performed by Charles Fernandez PA-C, and supervised by Dr. Doty
--- NOTE | 2023-12-03 12:55 | MHC.SL.IMP ---
Date of Plan of Treatment: 12/03/23 Onset of Symptoms/Illness: 12/03/23 Date Treatment Started: 12/03/23 Admitting Diagnosis: Parkinson's Primary Speech & Language Diagnosis: R49.0 Dysphonia Secondary Speech & Language Diagnosis: R13.10 Dysphagia Reason for Today's Visit: 77234 Modified Barium Swallow Study Comments: Pre-evaluation Dietary Consistencies: Regular Pre-evaluation Liquid Consistency: Thin Pre-evaluation Medication Administration: Whole with Liquid Medical History: Neurological Conditions e.g.: Ever's, Parkinson's Comments: [facility] Fall Risk Assessment Score: Oral Motor Exam Facial Symmetry: Asymmetry- Right Side Normal for Patient Oral Expression Ability: No Impairment Is patient able to manage secretions?: Yes Is patient able to produce volitional cough?: No Food and Liquid Trials: Oral Impairment: Lip Closure: 1=Interlabial escape; no progression to anterior tip Oral Impairment: Tongue Control During Bolus Hold: 0=Cohesive bolus between tongue to palatal seal Oral Impairment: Bolus Preparation/Mastication: 0=Timely and efficient chewing and mashing Oral Impairment: Bolus Transport/Lingual Motion: 0=Brisk tongue motion Oral Impairment: Oral Residue: 1=Trace residue lining oral structures Oral Impairment:Initiation of Pharyngeal Swallow: 0=Bolus head at posterior angle of ramus (first hyoid excursion) Pharyngeal Impairment: Soft Palate Elevation: 0=No bolus between soft palate (SP)/pharyngeal wall (PW) Pharyngeal Impairment: Laryngeal Elevation: 0=Complete superior movement of thyroid cartilage (see description) Pharyngeal Impairment: Anterior Hyoid Excursion: 0=Complete anterior movement Pharyngeal Impairment: Epiglottic Movement: 0=Complete inversion Pharyngeal Impairment: Laryngeal Vestibular Closure:: 0=Complete: no air/contrast in laryngeal vestibule Pharyngeal Impairment: Pharyngeal Stripping Wave: 0=Present: complete Pharyngeal Impairment: Pharyngeal Contraction: Did not test Pharyngeal Impairment: Pharyngoesophageal Segment Openin=Complete distension and complete duration: no obstruction of flow Pharyngeal Impairment: Tongue Base (TB) Retraction: 1=Trace column of contrast/air between TB and posterior PW Pharyngeal Impairment: Pharyngeal Residue: 1=Trace residue within or on pharyngeal structures Pharyngeal Impairment: Esophageal Clearance Upright Position: Did not test Impressions and Recommendations [id number] Results: Lip closure for intraoral bolus containment resulted in interlabial escape, without progression to the anterior lip. Tongue control during bolus hold maintained a cohesive bolus held between tongue to palate seal. Bolus preparation and mastication resulted in timely and efficient chewing and mashing. Bolus transport/lingual motion was with brisk tongue motion. Oral residue was a trace, lining oral structures. Initiation of the pharyngeal swallow occurred as the bolus head reached the posterior angle of the mandibular ramus. Soft palate elevation resulted in no bolus between the soft palate and the pharyngeal wall. Laryngeal elevation demonstrated complete superior movement of the thyroid cartilage with complete approximation of the arytenoids to the epiglottic petiole. Anterior hyoid excursion demonstrated complete anterior movement. Epiglottic movement resulted in complete inversion. Laryngeal vestibular closure was complete, as indicated by no air or contrast within the laryngeal vestibule at the height of the swallow. Pharyngeal stripping wave was present and complete. Pharyngeal contraction could not be determined due to logistical reasons not related to physiologic impairment. Pharyngoesophageal segment opening was completely distended for complete duration with no obstruction of bolus flow. Tongue base retraction allowed a trace column of contrast or air between the retracted tongue base and the posterior pharyngeal wall. Pharyngeal residue was a collection of residue within or on pharyngeal structures. Esophageal clearance in the upright position could not be assessed due to logistical reasons not related to physiologic impairment. Oral Impairment Score: 0 Pharyngeal Impairment Score: 2 (absence of score, component 13) Esophageal Impairment Score: --- (absence of score, component 17) Laryngeal Penetration and Aspiration: Neither penetration nor aspiration was observed in today's study with Cookie, Pudding-thick, Thin. Liquid Intake Recommendation: Thin Liquid Intake Strategies: Unrestricted Dietary Recommendations: Regular Medication Administration: Whole with Liquid Please contact the pharmacy regarding appropriate crushable or liquid drug formulations that are available whenever modified delivery is recommended. Compensatory Strategies Recommended: Sitting Upright (90 deg) Small Bites and Sips Alternate Liquids/Solids Supervision during eating and or drinking: None Needed Recommended Treatments: Compens. Strategy Educat. Recommendation for Speech Therapy: Outpatient Speech Therapy Text Comment: Continue outpatient Voice Therapy. Timeline to reassess: PRN Inside Wireman Clinician/Clinical Fellow: No Supervisory Statement: N/A Speech Language Pathologist: Migel Swain M.A., CCC-STORAGE BATTER[employer]
== END 2023-12-03 10:08 | disposition home or self-care (01) ==
LOC: HO.XRAY 10:07
PROVIDERS: Visit Provider Nurse Practitioner Family
DX: R13.10 Dysphagia, unspecified (principal); R47.81 Slurred speech; G20.A1 Parkinson's disease without dyskinesia, without mention of fluctuations
CPT/HCPCS: 74230; 92611

== ENCOUNTER → 2023-12-03 10:30 | Outpatient (BNV) | payer OTHER, SELFPAY | PROVIDERS: Visit Provider Physician Assistant Surgical | DX: R13.10 Dysphagia, unspecified (principal); G20.A1 Parkinson's disease without dyskinesia, without mention of fluctuations | CPT/HCPCS: 74230 ==

== ENCOUNTER 2023-12-10 10:13 | Outpatient (AMB) | payer OTHER, SELFPAY ==
--- NOTE | 2023-12-10 10:25 | A.OFFVIS_ITS ---
Intake Vital Signs 12/10/23 10:30 Height 5 ft 10 in Weight 213 lb BMI 30.6 BP 118/72 Blood Pressure Location Rt brachial Position Sitting Pulse 94 Pulse Source Pulse Oximeter Pulse Oximetry (%) 98 Oxygen Delivery Method Room Air Intake Visit Reasons: 3 mo f/u - Parkinson-Conf Intake Note: Patient presents for 3 month parkinson's. Allergies atorvastatin [From Lipitor] Allergy (Mild, Verified 10/29/23 07:49) pain HPI HPI Comments History of Present Illness Details 58-yr-old male presents for f/u visit. Patient is accompanied by his . Pt denies any significant interval medical history changes. Pt had neurosurgery consult w/ Dr Leung, [facility], for second opinion of left superior medial parietal cortex abnormality. He has been advised to undergo f/u brain MRI, which is scheduled for 12/23 at [facility]. Per Dr Leung's note- plan is to present results to the tumor board. MBS, 11/2023: No evidence of laryngeal penetration or aspiration was seen during this examination. 09/04/23: US carotid duplex BI IMPRESSION: 1. RIGHT: Normal right internal carotid artery without atherosclerotic plaque or hemodynamically significant stenosis. 2. LEFT: Normal left internal carotid ar mary ellen without atherosclerotic plaque or hemodynamically significant stenosis. Pt's current PD medication regimen: CD-LD ER 25-100mg 1 tab 5 x's per day, Clonazepam 2mg qhs, quetiapine 50mg qhs. Feels Parkinson's is overall stable. Taking CD-LD 5 x's per day has been helpful w/o increasing hallucinations. The other day, had a more severe typical migraine w/ photophobia- had to take S umatriptan 2 tabs and lay down and this down, but this did not help. He has not had this severe of a migraine in a while. ADL's: helping, has a shower bench Speech: Voice- soft/slurred. Swallowing: Some difficulty swallowing- coughing even on fluids. May bite his tongue at times- w/wo chewing. He did have MBS- showed some mild swallowing issues. 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 Cough: None Drooling: Yes Orthostatic lightheadedness: Denies. Constipation: Stable- eating higher fiber foods and Miralax helps. Freezing: At times. Stiffness: Can have stiffness and muscle cramps. Tremor: Usually mild Gait/Falls: No falls. Using a cane Hallucinations: He continues to have hallucinations- feels like someone is there but no one is. Memory: Can be forgetful, forgetting words, losing his train of thought- in Haitian or Stateless Mood: Varies. Sleep: Sleeping ok- can some REM sleep behaviors. He is compliant w/ clonazapem and quetiapine. Exercise: Not much. Plans to start walking again. [facility] Medical History Parkinson disease Diabetes Surgical History H/O hernia repair History of vasectomy History of carpal tunnel release Family History Father Cancer Mother Hyperlipidemia Diabetes Social History Alcohol intake: never Patient Tobacco Use Status: Former Tobacco user Tobacco use type: Cigar Cigarettes Per Day: 1 Review of Systems Const All systems reviewed & are unremarkable except as noted in HPI and below Physical Exam Vital Signs: Last Vital Signs Pulse 94 12/10/23 10:30 BP 118/72 12/10/23 10:30 Pulse Ox 98 12/10/23 10:30 Oxygen Delivery Method Room Air 12/10/23 10:30 BMI result Body Mass Index 30.6 Const General: cooperative and no acute distress Resp Effort & Inspection: normal respiratory effort and able to speak in complete sentences Neuro Other: General:? A&O x's 3. Right facial asymmetry: eye decreased palpebral fissure- mild. Right lower facial droop. Right eye and lower face- no twitching seen today. Expression:? Decreased expression and blink Voice/Speech:? Soft voice, mild dysarthria, occasional bradyphrenia Tremor:? No tremor noted today Tone:? Bilateral upper extremity tone- milder Dyskinesia:? None FFM:? Mild bradykinesia more so on right Foot taps:? Mild bradykinesia worse on right Gait:? Slow to stand, slight stooped, slightly decreased arm swing short steps steady with cane Psych:? Pleasant affect. 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 Code(s): R90.89 - Other abnormal findings on diagnostic imaging of central nervous system (3) Migraine, unspecified, not intractable, without status migrainosus: Comment: childhood onset Code(s): G43.909 - Migraine, unspecified, not intractable, without status migrainosus (4) REM sleep behavior disorder: Code(s): G47.52 - REM sleep behavior disorder Plan [facility] left superior medial parietal cortex abnormality For right eye blepherospasm: Continue Botox up to 100 units in right eye/cheek muscles q 12 weeks- pt has f/u appt w/ Dr Hernandez. ? For Parkinson's and REM sleep behavior disorder: Continue Sinemet CR 25-100mg- 1 tab 5 x's per day- 5am, 9am, 1pm, 5pm, 9pm. Continue Quetiapine 25mg- 2 tabs (50mg) qhs- monitor hallucinations. Continue Melatonin 10mg. Continue Clonazepam to 2 mg for REM sleep behaviors. 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 For constipation- Continue dietary fiber, taking prunes/prune juice. Miralax prn. For lightheadedness prevention- take 1 small bottle sports drink in am. For mood- therapy as ordered- pt is on waiting list. Baseline neuropsych eval pending. Increase exercise- walking, PT exercises, goal of > 30 minutes per day. Future considerations: Nuplazid, Rytary. ? For Migraine- Continue Sumatriptan prn. Future considerations- trial of Nurtec or Ubrelvy. Coding Level of Care Code Est Pt Level 4 (48611) Diagnoses Parkinson's disease without dyskinesia G20.A1 Abnormal finding on MRI of brain R90.89 Migraine, unspecified, not intractable, without status migrainosus G43.909 REM sleep behavior disorder G47.52
[2023-12-10 10:30] VITALS: BP 118/72; PULSE 94; O2SAT 98; BMI 30.6
== END 2023-12-10 11:35 | disposition home or self-care (01) ==
PROVIDERS: PCP Internal Medicine Sports Medicine; Visit Provider Nurse Practitioner Family
DX: G20.A1 Parkinson's disease without dyskinesia, without mention of fluctuations (principal); R90.89 Other abnormal findings on diagnostic imaging of central nervous system; G43.909 Migraine, unspecified, not intractable, without status migrainosus; G47.52 REM sleep behavior disorder
CPT/HCPCS: 99214

== ENCOUNTER → 2023-12-10 10:13 | Outpatient (BNVA) | payer OTHER, SELFPAY | PROVIDERS: PCP Internal Medicine Sports Medicine; Visit Provider Nurse Practitioner Family | DX: G20.A1 Parkinson's disease without dyskinesia, without mention of fluctuations (principal); R90.89 Other abnormal findings on diagnostic imaging of central nervous system; G43.909 Migraine, unspecified, not intractable, without status migrainosus; G47.52 REM sleep behavior disorder | CPT/HCPCS: 99212 ==

== ENCOUNTER 2024-03-02 09:12 | Outpatient (AMB) | payer OTHER, SELFPAY ==
[2024-03-02 09:28] VITALS: BP 112/70; PULSE 94; RESP 16; O2SAT 97; BMI 30.6
--- NOTE | 2024-03-02 09:28 | A.OFFVIS_ITS ---
Vital Signs 03/02/24 09:28 Height 5 ft 10 in Weight 213 lb BMI 30.6 BP 112/70 Blood Pressure Location Rt brachial Position Sitting Respiration 16 Pulse 94 Pulse Source Pulse Oximeter Pulse Oximetry (%) 97 Oxygen Delivery Method Room Air Intake Visit Reasons: Botox - Confirmed Intake Note: Pt presents for Botox injections. [employer] Required: No Allergies atorvastatin [From Lipitor] Allergy (Mild, Verified 03/02/24 09:28) pain Medication List - Last Reconciled 03/02/24 by Taryn Hernandez MD amlodipine 10 mg PO DAILY carbidopa-levodopa 25-100 mg ER 1 tab orally 5 x's per day; 90 days clonazepam 2 mg PO BEDTIME 30 days dulaglutide (Trulicity) 4.5 mg subcut QWEEK empagliflozin (Jardiance) 25 mg PO DAILY ezetimibe 10 mg PO DAILY glipizide ER 10 mg PO ONCE lancets (OneTouch Delica Plus Lancet) As directed magnesium oxide 400 mg PO DAILY 30 days melatonin 10 mg PO DAILY PRN metformin 1,000 mg PO .twice a day omeprazole 40 mg PO DAILY onabotulinumtoxinA (Botox) 100 units IM ONCE 12 weeks polyethylene glycol 3350 (Miralax) 17 grams PO DAILY PRN 30 days quetiapine 50 mg (2 x 25 mg) PO BEDTIME 90 days riboflavin (vitamin B2) 400 mg PO DAILY 30 days sumatriptan succinate take 1 tab at onset of headache; if no relief, may repeat 1 tab after at least 2 hrs; max = 2 tabs/24 hrs orally PRN; 30 days valsartan-hydrochlorothiazide 160-25 mg 1 tab PO DAILY HPI Comments Details: 58y/o male comes for treatment of her blepherospasm , hemifacial spasm with botox Effectiveness of last two botox: Change in intensity of spasms-decreased Change in frequency of spasms-decreased Changes in quality of life-improved Have at least three months elapsed since last treatment (Last botox date - freq uency of injections) 07/29/71 Botulinum toxin type A Lot no C [id number] X 1 Exp 02/2026 was diluted with 1 cc of normal saline at a concentration of 10units in 0.1 cc. Side effects were discussed and an informed consent was obtained. Muscles injected Right Lateral canthus - 15 units Right Lateral Lower eyelid-15units Right Medial lower eyelid- 5 units Right Nasolabial fold 5 units Right zygomaticus 10 units right lower lip 5 units Total used 55 units discarded 45 units PFSH Medical History Parkinson disease Diabetes Surgical History H/O hernia repair History of vasectomy History of carpal tunnel release Family History Father Cancer Mother Hyperlipidemia Diabetes Social History Alcohol intake: never Patient Tobacco Use Status: Former Tobacco user Tobacco use type: Cigar Cigarettes Per Day: 1 Physical Exam Vital Signs: Last Vital Signs Pulse 94 03/02/24 09:28 Resp 16 03/02/24 09:28 BP 112/70 03/02/24 09:28 Pulse Ox 97 03/02/24 09:28 Oxygen Delivery Method Room Air 03/02/24 09:28 BMI result Body Mass Index 30.6 Neuro Other: Right Hemifacial spasm Office Procedures Botulinum toxin Injection 60159 - Facial Nerve Procedure code (CPT) selection complete Office Meds onabotulinumtoxinA 100 unit solution for injection Performing Provider: Taryn Hernandez MD Performing Location: [facility] Administered by: Taryn Hernandez MD on 03/02/24 09:59 Dose Route Admin Location Dispensed Lot Number Expiration Date [facility] Environmental Services Project Manager 55 unit subcut 100 units [id number] 02/27/26 5903-6293-13 [employer]ERGAN/BOTOX Comments: see HPI Assessment & Plan Assessment & Plan (1) Blepharospasm of right eye: Comment: s/p right orbital fracture- Code(s): G24.5 - Blepharospasm Category: Medical Plan Patient tolerated the procedure well. He will call with any side effects Orders: Orders AMB Botulinum toxin Injection Today G51.31 - Clonic hemifacial spasm, right Medications: New onabotulinumtoxinA 100 units subcut ONCE 1 ea 0RF hemifacial spasm G51.31 - Clonic hemifacial spasm, right Coding Level of Care Code Est Pt Level 1 (15725) Diagnoses Blepharospasm of right eye G24.5 CPT Codes Botox Injection - Botox 2: 95798 - Facial Nerve ([id number])
== END 2024-03-02 09:50 | disposition home or self-care (01) ==
PROVIDERS: PCP Internal Medicine Sports Medicine; Visit Provider Psychiatry & Neurology Neurology
DX: G24.5 Blepharospasm (principal)
CPT/HCPCS: 64612

== ENCOUNTER → 2024-03-02 09:12 | Outpatient (BNVA) | payer OTHER, SELFPAY | PROVIDERS: PCP Internal Medicine Sports Medicine; Visit Provider Psychiatry & Neurology Neurology | DX: G24.5 Blepharospasm (principal) | CPT/HCPCS: 64612; 99211; J0585 ==

== ENCOUNTER 2024-03-11 11:00 | Outpatient (RCR) | payer OTHER, SELFPAY ==
--- NOTE | 2024-03-19 12:26 | MHC.SL.SOA ---
Referring Provider: HANNAH Gomez Reason for Referral: Cognitive difficulties Date of Plan of Treatment:12/03/23 Onset of Symptoms/Illness:12/03/23 Date Treatment Started:12/03/23 Medical Diagnosis:Parkinson's Primary Speech Language Diagnosis:R41.841 Cognitive communication disorder Secondary Speech Language Diagnosis:R13.10 Dysphagia Number of Authorized Visits Remainin Authorization End Date:02/01/24 Reason for Visit:09535 Individual Treatment Subjective:This Hu's discharge visit for his current plan of care. He is joined by his who both express agreement that he is ready for discharge from Speech Therapy. Objective: Hu was initially evaluated on 11/03/23. He was seen for 8 visits from 12/11/23 to 03/01/24. The follow goals had been met at the time of discharge: STG1: Pt will demonstrate knowledge of the 5 attention types with >80% accuracy independently. STG2: Pt will complete complex logic puzzles with use of compensatory strategies with >80% accuracy. STG3: Pt will increase short-term recall of 5 item lists with >80% accuracy and minimal assistance. STG4: Pt/Caregiver will complete weekly assigned HEP tasks with >80% accuracy independently. 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 He is being followed by Neurosurgery at [facility], however no intervention is planned at this time. He will be monitored with repeat MRI every six months. Assessment:Hu has been a faithful attendant of his Cognitive-Communication Therapy and an excellent student at home completing nearly all his HEP. His prognosis for continued maintenance and carry-over is very good. By the end of treatment we had isolated cognitively stimulating tasks that he could participate in after treatment was over. Among them are widely available Sudoku puzzles, reading, playing music, and engaging with [facility]. It was a pleasure getting to know Hu and his . I am very confident that he will take the lessons learned from Cognitive-Communication therapy forward with him for a long time. That said, he and his are encouraged to reach out if they notice and further progression of his disease requiring intervention which is not limited to cognition, but also voice and swallowing. Notes: No swallow intervention required at this time. Plan: Goal # : STG1: Pt will demonstrate knowledge of the 5 attention types with >80% accuracy independently. Status of Goal: Goal Met Goal # : STG2: Pt will complete complex logic puzzles with use of compensatory strategies with >80% accuracy. Status of Goal: Goal Met Goal # : STG3: Pt will increase short-term recall of 5 item lists with >80% accuracy and minimal assistance. Status of Goal: Goal Met Goal # : STG4: Pt/Caregiver will complete weekly assigned HEP tasks with >80% accuracy independently. Status of Goal: Goal Met Seen by: Graduate/Clinical Fellow: No Supervisory Statement: N/A Speech Language Pathologist: Migel Swain M.A., CCC-NON CATEGORICAL PRESCHOOL TEACHER
== END 2024-03-22 14:32 | disposition home or self-care (01) ==
LOC: HO.SH 11:00
PROVIDERS: Visit Provider Nurse Practitioner Family
DX: R41.841 Cognitive communication deficit (principal); R13.10 Dysphagia, unspecified; K14.8 Other diseases of tongue; F09 Unspecified mental disorder due to known physiological condition; G51.31 Clonic hemifacial spasm, right
CPT/HCPCS: 92507; 92526

== ENCOUNTER 2024-04-14 10:13 | Outpatient (AMB) | payer OTHER, SELFPAY ==
--- NOTE | 2024-04-14 10:14 | A.OFFVIS_ITS ---
Vital Signs 04/14/24 10:15 Height 5 ft 10 in Weight 206 lb BMI 29.6 BP 104/78 Blood Pressure Location Rt brachial Position Sitting Pulse 98 Pulse Source Pulse Oximeter Pulse Oximetry (%) 95 Oxygen Delivery Method Room Air Intake Visit Reasons: follow up Parkinsons-CONF Intake Note: Patient presents for follow up parkinsons. Allergies atorvastatin [From Lipitor] Allergy (Mild, Verified 04/14/24 10:19) pain Medication List - Last Reconciled 04/14/24 by HANNAH Gomez amlodipine 10 mg PO DAILY carbidopa-levodopa 25-100 mg ER 1 tab orally 5 x's per day; 90 days carboxymethylcellulose sodium (Refresh Contacts eye drops) 1 drp ophthalmic (eye) BID clonazepam 2 mg PO BEDTIME 30 days dulaglutide (Trulicity) 4.5 mg subcut QWEEK empagliflozin (Jardiance) 25 mg PO DAILY ezetimibe 10 mg PO DAILY glipizide ER 10 mg PO ONCE lancets (OneTouch Delica Plus Lancet) As directed magnesium oxide 400 mg PO DAILY 30 days melatonin 10 mg PO DAILY PRN metformin 1,000 mg PO .twice a day omeprazole 40 mg PO DAILY onabotulinumtoxinA (Botox) 100 units IM ONCE 12 weeks polyethylene glycol 3350 (Miralax) 17 grams PO DAILY PRN 30 days quetiapine 50 mg (2 x 25 mg) PO BEDTIME 90 days riboflavin (vitamin B2) 400 mg PO DAILY 30 days semaglutide (Ozempic) 1 mg subcut QWEEK sumatriptan succinate take 1 tab at onset of headache; if no relief, may repeat 1 tab after at least 2 hrs; max = 2 tabs/24 hrs orally PRN; 30 days valsartan-hydrochlorothiazide 160-25 mg 1 tab PO DAILY HPI Comments Details: 58-yr-old male presents for f/u visit, accompanied by his . Pt denies any significant interval medical history changes. He did just undergo nuclear stress test as he has been having episodes of LUE numbness while walking. He also had c-spine X-ray, which per pt showed mild degenerative changes and mild-moderate multilevel neural foraminal narrowing. For abnormal brain MRI: He is scheduled to have f/u brain MRI in May/Jun w/ f/u w/ Dr Leung afterwards. For migraine: He states his typical migraine comes and goes- pressure on the crown of the head a/w photophobia, right eye blurry vision, activity intolerance. Using S umatriptan 2 tabs and lay down and this down, but this did not help. He has not had this severe of a migraine in a while. For PD: Pt's current PD medication regimen: CD-LD ER 25-100mg 1 tab 5 x's per day, Clonazepam 2mg qhs, quetiapine 50mg qhs. States he is having good days and bad days. He has days where he is more stiff and sore and days where he has more hallucinations. ADL's: helping, has a shower bench Speech: Voice- soft/slurred. 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 Swallowing: Some difficulty swallowing- coughing on solid foods- such as pork skins. Cough: None Drooling: Yes Orthostatic lightheadedness: Denies. Constipation: Noticing more constipation- Does eat higher fiber foods. Using Miralax prn no BM in 3 days- not always helping. Freezing: At times. Stiffness: Can have stiffness and some muscle cramps- more so in lower back. Tremor: Occasionally- mild Gait/Falls: No falls. Using a cane- in his right hand Hallucinations: He continues to have hallucinations- feels like someone is there but no one is or seeing shadows. May have some illusions at times- but can realize that it is not real. Cognition: Can be forgetful, forgetting words, losing his train of thought- in Nauruan or Italian. Feels he is slower in his processing- such as went fishing and had difficulty remembering how to pull the line in. Mood: Varies. 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 Sleep: Feels like he is not sleeping as deeply- more prone to ruminating thoughts. Sleeping ok- can some REM sleep behaviors. He is compliant w/ clonazapem and quetiapine. Exercise: Not much. Recently went camping- walking, swimming. Has a trailer camper. PFSH Medical History Parkinson disease Diabetes Surgical History H/O hernia repair History of vasectomy History of carpal tunnel release Family History Father Cancer Mother Hyperlipidemia Diabetes Social History Alcohol intake: never Patient Tobacco Use Status: Former Tobacco user Tobacco use type: Cigar Cigarettes Per Day: 1 Review of Systems Const All systems reviewed & are unremarkable except as noted in HPI and below Physical Exam Vital Signs: Last Vital Signs Pulse 98 04/14/24 10:15 BP 104/78 04/14/24 10:15 Pulse Ox 95 04/14/24 10:15 Oxygen Delivery Method Room Air 04/14/24 10:15 BMI result Body Mass Index 29.6 Const General: cooperative and no acute distress Resp Effort & Inspection: normal respiratory effort and able to speak in complete sentences Neuro Other: General:? A&O x's 3. Right facial asymmetry: eye decreased palpebral fissure- mild. Right lower facial droop. Right eye and lower face- no twitching seen today. Expression:? Decreased expression and blink Voice/Speech:? Soft voice, mild dysarthria, occasional bradyphrenia Bilateral L > R posterior cervical tightness. Cervical ROM: full Left Spurling: normal Right Spurling: normal. LUE sensation intact. MS 5/5 throughout Tremor:? No tremor noted today Tone:? Bilateral R > L upper extremity tone- mild Dyskinesia:? None FFM:? Mild bradykinesia more so on right Foot taps:? Mild bradykinesia worse on right Gait:? Slow to stand, slight stooped, slightly decreased arm swing short steps steady with cane Psych:? Pleasant affect. Results Reviewed Results Reviewed: March 15, 2024 at [facility], Cervical Spine 4 or 5 Views Cervical spine 5 views dated March 15, 2024. Comparison films are from November 19, 2022. HISTORY: Pain. FINDINGS: Today's study is limited as the open-mouth odontoid view is suboptimal. The vertebral bodies are normal in height and alignment. Intervertebral disc spaces are fairly well-preserved. On the oblique images, the facet joints align normally. No locked or perched facets are seen. There is mild to moderate neural foraminal narrowing on the left at C4-5 and C5- 6. On the right, there is mild to moderate neural foraminal narrowing at C3-4 and C4-5. Prevertebral soft tissues are within normal limits. IMPRESSION: Mild degenerative changes and mild-modertae multilevel neural foraminal narrowing as described above. Assessment & Plan Assessment & Plan (1) Parkinson's disease without dyskinesia: Code(s): G20.A1 - Parkinson's disease without dyskinesia, without mention of fluctuations Category: Medical (2) Paresthesia of left upper extremity: Code(s): R20.2 - Paresthesia of skin Category: Medical (3) Neural foraminal stenosis of cervical spine: Code(s): M48.02 - Spinal stenosis, cervical region Category: Medical (4) Migraine, unspecified, not intractable, without status migrainosus: Comment: childhood onset Code(s): G43.909 - Migraine, unspecified, not intractable, without status migrainosus Category: Medical (5) Abnormal finding on MRI of brain: Comment: left superior medial parietal cortex 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 Code(s): R90.89 - Other abnormal findings on diagnostic imaging of central nervous system Category: Medical Plan Brain MRI and follow-up with neurosurgery, Dr Leung, [facility], as scheduled for second opinion of left superior medial parietal cortex abnormality For LUE numbness on walking: Reviewed C-spine X-ray report- multilevel degenerative changes and mild-mod cervical neural foraminal stenosis. Pt advised to undergo LUE EMG/NCS. Trial Gabapentin 100-300mg qhs- may help with headcahes and sleep as well. ? For right eye blepherospasm: Continue Botox up to 100 units in right eye/cheek muscles q 12 weeks- pt has f/u appt w/ Dr Hernandez. ? For Parkinson's and REM sleep behavior disorder: Continue Sinemet CR 25-100mg- 1 tab 5 x's per day- 5am, 9am, 1pm, 5pm, 9pm. Continue Quetiapine 25mg- 2 tabs (50mg) qhs- monitor hallucinations. Continue Melatonin 10mg. Continue Clonazepam to 2 mg for REM sleep behaviors. 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 For constipation- Continue dietary fiber, taking prunes/prune juice. Increase Miralax- use prn no BM in 2 days.. For lightheadedness prevention- take 1 small bottle sports drink in am. For mood- therapy as ordered- pt is on waiting list. Baseline neuropsych eval pending. Increase exercise- walking, PT exercises, goal of > 30 minutes per day. Future considerations: Nuplazid, Rytary. ? For Migraine- Continue Sumatriptan prn. Future considerations- trial of Amitriptyline, Nurtec or Ubrelvy. Of note- pt mentioned today that he is a [place] . He was unaware of the passage of the recent PACT Act, and thus has not discussed if his migraine or Parkinson's disease is or is not service connected w/ his VA providers. VA and PACT Act information shared w/ pt and . f/u in 3-6 months or sooner prn. Orders: Orders NE electromyogram (EMG) Today G20.A1 - Parkinson's disease without dyskinesia, without mention of fluctuations, M48.02 - Spinal stenosis, cervical region, R20.2 - Paresthesia of skin NE nerve conduction velocity Today G20.A1 - Parkinson's disease without dyskinesia, without mention of fluctuations, M48.02 - Spinal stenosis, cervical region, R20.2 - Paresthesia of skin Medications: New gabapentin 100 - 300 mg (1 - 3 x 100 mg) PO BEDTIME 30 days 90 caps 3RF Coding Level of Care Code Est Pt Level 4 (87269) Complex EM visit Add On G2211 Diagnoses Parkinson's disease without dyskinesia G20.A1 Paresthesia of left upper extremity R20.2 Neural foraminal stenosis of cervical spine M48.02 Migraine, unspecified, not intractable, without status migrainosus G43.909 Abnormal finding on MRI of brain R90.89
[2024-04-14 10:15] VITALS: BP 104/78; PULSE 98; O2SAT 95; BMI 29.6
== END 2024-04-14 11:54 | disposition home or self-care (01) ==
PROVIDERS: PCP Internal Medicine Sports Medicine; Visit Provider Nurse Practitioner Family
DX: G20.A1 Parkinson's disease without dyskinesia, without mention of fluctuations (principal); R20.2 Paresthesia of skin; M48.02 Spinal stenosis, cervical region; G43.909 Migraine, unspecified, not intractable, without status migrainosus; R90.89 Other abnormal findings on diagnostic imaging of central nervous system
CPT/HCPCS: 99214; G2211

== ENCOUNTER → 2024-04-14 10:13 | Outpatient (BNVA) | payer OTHER, SELFPAY | PROVIDERS: PCP Internal Medicine Sports Medicine; Visit Provider Nurse Practitioner Family | DX: G20.A1 Parkinson's disease without dyskinesia, without mention of fluctuations (principal); R20.2 Paresthesia of skin; M48.02 Spinal stenosis, cervical region; G43.909 Migraine, unspecified, not intractable, without status migrainosus; R90.89 Other abnormal findings on diagnostic imaging of central nervous system; Z79.899 Other long term (current) drug therapy | CPT/HCPCS: 99212 ==

== ENCOUNTER 2024-05-25 10:09 | Outpatient (REF) | payer OTHER, SELFPAY ==
--- NOTE | 2024-05-25 10:12 | EMG_ITS ---
Left median and ulnar motor and sensory studies were performed. Left radial and median and lateral antecubital brachial sensory studies were performed and paraspinal muscles were tested with a needle. IMPRESSION: 1. [id number] left median neuropathy across carpal tunnel. 2. Mild left ulnar neuropathy across cubital tunnel. 3. Chronic left lower cervical radiculopathy. MD PADMINI Nava/NATALIE / [phone]
== END 2024-05-25 10:10 | disposition home or self-care (01) ==
LOC: HO.NEURO 10:09
PROVIDERS: Visit Provider Nurse Practitioner Family
DX: G20.A1 Parkinson's disease without dyskinesia, without mention of fluctuations (principal); R20.2 Paresthesia of skin; M48.02 Spinal stenosis, cervical region
CPT/HCPCS: 95886; 95910

== ENCOUNTER 2024-07-05 08:44 | Outpatient (AMB) | payer OTHER, SELFPAY ==
--- NOTE | 2024-07-05 08:50 | MHC.OFFVIS ---
Vital Signs 07/05/24 08:51 Height 5 ft 10 in Weight 198 lb BMI 28.4 Intake Visit Reasons: Botox Intake Note: Patient presents for botox injection. Allergies atorvastatin [From Lipitor] Allergy (Mild, Verified 07/05/24 08:53) pain Medication List - Last Reconciled 07/05/24 by Taryn Hernandez MD amlodipine 10 mg PO DAILY carbidopa-levodopa 25-100 mg ER 1 tab orally 5 x's per day; 90 days carboxymethylcellulose sodium (Refresh Contacts eye drops) 1 drp ophthalmic (eye) BID clonazepam 2 mg PO BEDTIME 90 days dulaglutide (Trulicity) 4.5 mg subcut QWEEK empagliflozin (Jardiance) 25 mg PO DAILY ezetimibe 10 mg PO DAILY gabapentin 100 - 300 mg (1 - 3 x 100 mg) PO BEDTIME 30 days glipizide ER 10 mg PO ONCE lancets (OneTouch Delica Plus Lancet) As directed magnesium oxide 400 mg PO DAILY 30 days melatonin 10 mg PO DAILY PRN metformin 1,000 mg PO .twice a day omeprazole 40 mg PO DAILY onabotulinumtoxinA (Botox) 100 units IM ONCE 12 weeks polyethylene glycol 3350 (Miralax) 17 grams PO DAILY PRN 30 days quetiapine 50 mg (2 x 25 mg) PO BEDTIME 90 days riboflavin (vitamin B2) 400 mg PO DAILY 30 days semaglutide (Ozempic) 1 mg subcut QWEEK sumatriptan succinate take 1 tab at onset of headache; if no relief, may repeat 1 tab after at least 2 hrs; max = 2 tabs/24 hrs orally PRN; 30 days valsartan-hydrochlorothiazide 160-25 mg 1 tab PO DAILY HPI Comments Details: 58y/o male comes for treatment of her blepherospasm , hemifacial spasm with botox Effectiveness of last two botox: Change in intensity of spasms-decreased Change in frequency of spasms-decreased Changes in quality of life-improved Have at least three months elapsed since last treatment (Last botox date - frequency of injections) yes Botulinum toxin type A Lot no C [id number] X 1 Exp 06/2026 was diluted with 1 cc of normal saline at a concentration of 10units in 0.1 cc. Side effects were discussed and an informed consent was obtained. Muscles injected Right Lateral canthus - 15 units Right Lateral Lower eyelid-15units Right Medial lower eyelid- 5 units Right Nasolabial fold 5 units Right zygomaticus 10 units right lower lip 5 units Total used 55 units discarded 45 units PFSH Medical History Parkinson disease Diabetes Surgical History H/O hernia repair History of vasectomy History of carpal tunnel release Family History Father Cancer Mother Hyperlipidemia Diabetes Social History Alcohol intake: never Patient Tobacco Use Status: Former Tobacco user Tobacco use type: Cigar Cigarettes Per Day: 1 Physical Exam Vital Signs: BMI result Body Mass Index 28.4 Neuro Other: Right Hemifacial spasm Office Procedures Botulinum toxin Injection 01891 - Facial Nerve Procedure code (CPT) selection complete Office Meds onabotulinumtoxinA 100 unit solution for injection Performing Provider: Taryn Hernandez MD [place] [facility] Administered by: Taryn Hernandez MD on 07/05/24 09:26 Dose Route Admin Location Dispensed Lot Number Expiration Date [facility] Pharmacy Technician Trainee 55 unit subcut 100 units [id number] 06/29/26 5849-8564-94 [employer]BOTOX Comments: see HPI Assessment & Plan Assessment & Plan (1) Blepharospasm of right eye: Comment: s/p right orbital fracture- Code(s): G24.5 - Blepharospasm Category: Medical Plan Patient tolerated the procedure well. He will call with any side effects Orders: Orders AMB Botulinum toxin Injection Today G51.31 - Clonic hemifacial spasm, right Medications: New onabotulinumtoxinA 100 units subcut ONCE 1 ea 0RF Hemifacial spasm G51.31 - Clonic hemifacial spasm, right Coding Level of Care Code Est Pt Level 1 (02594) Diagnoses Blepharospasm of right eye G24.5 CPT Codes Botox Injection - Botox 2: 33730 - Facial Nerve ([id number])
[2024-07-05 08:51] VITALS: BMI 28.4
== END 2024-07-05 09:16 | disposition home or self-care (01) ==
PROVIDERS: PCP Internal Medicine Sports Medicine; Visit Provider Psychiatry & Neurology Neurology
DX: G24.5 Blepharospasm (principal)
CPT/HCPCS: 64612

== ENCOUNTER → 2024-07-05 08:44 | Outpatient (BNVA) | payer OTHER, SELFPAY | PROVIDERS: PCP Internal Medicine Sports Medicine; Visit Provider Psychiatry & Neurology Neurology | DX: G24.5 Blepharospasm (principal); G51.31 Clonic hemifacial spasm, right | CPT/HCPCS: 64612; 99211; J0585 ==

== ENCOUNTER 2024-11-01 11:32 | Outpatient (AMB) | payer OTHER, SELFPAY ==
--- NOTE | 2024-11-01 11:40 | A.OFFVIS_ITS ---
Vital Signs 11/01/24 11:48 Height 5 ft 10 in Weight 196 lb 8 oz BMI 28.2 BP 110/70 Blood Pressure Location Rt brachial Position Sitting Pulse 92 Pulse Source Pulse Oximeter Pulse Oximetry (%) 96 Oxygen Delivery Method Room Air Intake Visit Reasons: Follow Up Intake Note: Patient presents for a 6 mo fu for Parkinson's. Pt has no concerns. He will like to discuss medication changes with provider. Transition Specialist Required: No Accompanied by: Spouse Allergies atorvastatin [From Lipitor] Allergy (Mild, Verified 11/01/24 11:47) pain Medication List - Last Reconciled 11/01/24 by HANNAH Gomez amlodipine 10 mg PO DAILY carbidopa-levodopa 23.75-95 mg ER (Rytary) 1 cap PO QID 30 days carbidopa-levodopa 36.25-145 mg ER (Rytary) 1 cap PO QID 30 days carboxymethylcellulose sodium (Refresh Contacts eye drops) 1 drp ophthalmic (eye) BID clonazepam 2 mg PO BEDTIME 90 days dulaglutide (Trulicity) 4.5 mg subcut QWEEK empagliflozin (Jardiance) 25 mg PO DAILY ezetimibe 10 mg PO DAILY glipizide ER 5 mg PO DAILY lancets (OneTouch Delica Plus Lancet) As directed magnesium oxide 400 mg PO DAILY 30 days melatonin 10 mg PO DAILY PRN metformin 1,000 mg PO .twice a day omeprazole 40 mg PO DAILY onabotulinumtoxinA (Botox) 100 units IM ONCE 12 weeks polyethylene glycol 3350 (Miralax) 17 grams PO DAILY PRN 30 days quetiapine 50 mg (2 x 25 mg) PO BEDTIME 90 days riboflavin (vitamin B2) 400 mg PO DAILY 30 days semaglutide (Ozempic) 1 mg subcut QWEEK sumatriptan succinate take 1 tab at onset of headache; if no relief, may repeat 1 tab after at least 2 hrs; max = 2 tabs/24 hrs orally PRN; 30 days valsartan-hydrochlorothiazide 160-25 mg 1 tab PO DAILY HPI Comments Details: 59-yr-old male presents for f/u visit, accompanied by his . Pt denies any significant interval medical history changes. Though, he did have bout of strep throat in Aug 2024, was treated with a Z-Vinay and has since recovered from. He continues to have LUE stabbing/rubbing pain radiating from his neck down the arm. The pain limits his ability to raise his arms. This pain can wake him up at night. Has tried Tylenol or Aleve but this only takes the edge off. He tried gabapentin 100 mg, however he did not tolerate this. He did just undergo nuclear stress test to eval episodes of LUE numbness while walking, which was normal. He did PT, however this exacerbated the pain. 05/25/24, LUE EMG/NCS: 1. Kgev-vy-msycgfio left median neuropathy across carpal tunnel. 2. Mild left ulnar neuropathy across cubital tunnel. 3. Chronic left lower cervical radiculopathy. 03/15/2024, XR C-SPINE, appy 60: FINDINGS: Today's study is limited as the open-mouth odontoid view is suboptim al. The vertebral bodies are normal in height and alignment. Intervertebral disc spaces are fairly well-preserved. On the oblique images, the facet joints align normally. No locked or perched facets are seen. There is mild to moderate neural foraminal narrowing on the left at C4-5 and C5-6. On the right, there is mild to moderate neural foraminal narrowing at C3-4 and C4-5. Prevertebral soft tissues are within normal limits. IMPRESSION: Mild degenerative changes and neural foraminal narrowing as described above For abnormal brain MRI: The last brain MRI in late 2023 was stable. He is scheduled to have a f/u head CTA in the spring. Continues to be f/b Dr Leung. For migraine: He states his typical migraine comes and goes- pressure on the crown of the head a/w photophobia, right eye blurry vision, activity intolerance. Having 1-2 migraine attacks per week, where he needs to lay down. He is often photophobic. Using Sumatriptan p.r.n. and lays down which helps.. He did have recent eye and retinal exams. For PD: Pt's current PD medication regimen: CD-LD ER 25-100mg 1 tab 5 x's per day, Clonazepam 2mg qhs, quetiapine 50mg qhs. States he has good and bad days. wonders if he really needs to take the 5am dose. He ask if he could not take a higher dose later when he gets up at 9am as sometimes he cannot fall back into a deep sleep after he takes his 5am dose. He takes his clonazepam and quetiapine around 20:30, some days it makes him sleepy right away and other days he is awake for a while afterwards. He goes to bed around 10pm- and takes his last dose of CD-LD then. His previous sleep schedule was to wake up at 05:00, however more recently he wakes up around 09:00 happy does not have any appointments. He is concerned that he continues to have REM sleep behaviors, however notes that they are less than they used to be. They had considered buying 2 separate twin beds, but can not afford this at this time. ADL's: helping, has a shower bench Speech: Voice- fluctuates can be softer or stronger. Still slurs sometimes. Swallowing: His nose seems to be running while eating. He had a recent endoscopy for evaluation of burps smelling like roting foods- GI felt that this may be secondary to ozempic causing gastroparesis- and asks him to discuss trying reglan with us. However, patient states he plans to stop Ozempic and resume Trulicity- as he did not have these GI side effects on the Trulicity. Cough: None Drooling: Yes Orthostatic lightheadedness: Sometimes. Constipation: Improved with miralax. Freezing: At times. Stiffness: Can have stiffness and some muscle cramps- more so in legs and lower back. Has been having painful stiffness in bilateral mid-toes during the day and night, but feet can be more sore at night. Saw podiatry, who gave him inserts, which helps a little bit. Tremor: Occasionally- mild Gait/Falls: No falls. Using a cane- in his right hand Hallucinations: He continues to have hallucinations- feels like someone is there but no one is or seeing shadows, animals, insects. Cognition: States ok, but has some forgetfulness, word finding difficulties, losing his train of thought- in Thai or Andorran. Feels he is slower in his processing- such as went fishing and had difficulty remembering how to pull the line in. Mood: He feels his mood is down a little bit, typical for this time of year. He did take a recent trip to [place]. He is hoping to maybe do a cruise. Sleep: Sleep varies- may not have any episodes for a few weeks and other weeks he has a couple of nights with REM sleep behaviors. The other night, he struck the headboard with his hand. He is compliant w/ clonazapem and quetiapine. Exercise: Not as much as I should . Skin- had recent right palm biospy- negative for discolored skin lesion. [facility] Medical History Parkinson disease Diabetes Surgical History H/O hernia repair History of vasectomy History of carpal tunnel release Family History Father Cancer Mother Hyperlipidemia Diabetes Social History Alcohol intake: never Patient Tobacco Use Status: Former Tobacco user Tobacco use type: Cigar Cigarettes Per Day: 1 Physical Exam Vital Signs: Last Vital Signs Pulse 92 11/01/24 11:48 BP 110/70 11/01/24 11:48 Pulse Ox 96 11/01/24 11:48 Oxygen Delivery Method Room Air 11/01/24 11:48 BMI result Body Mass Index 28.2 Const General: cooperative and no acute distress Resp Effort & Inspection: normal respiratory effort and able to speak in complete sentences Neuro Other: General:? A&O x's 3. Right facial asymmetry: eye decreased palpebral fissure- mild. Right lower facial droop. Right eye and lower face- no twitching seen today. Expression:? Decreased expression and blink Voice/Speech:? Soft voice, last dysarthria, less bradyphrenia Bilateral R > L posterior cervical tightness. Cervical ROM: Limited in extension Left Spurling: normal Right Spurling: normal. LUE sensation intact. MS 5/5 throughout Tremor:? No tremor noted today Tone:? Bilateral R > L upper extremity tone- mild Dyskinesia:? None FFM:? Mild bradykinesia more so on right Foot taps:? Mild bradykinesia worse on right Gait:? Slow to stand, slight stooped, slightly decreased arm swing short steps steady with cane Psych:? Pleasant affect. Assessment & Plan Assessment & Plan (1) Parkinson's disease without dyskinesia: Code(s): G20.A1 - Parkinson's disease without dyskinesia, without mention of fluctuations Category: Medical (2) Paresthesia of left upper extremity: Code(s): R20.2 - Paresthesia of skin Category: Medical (3) Neural foraminal stenosis of cervical spine: Code(s): M48.02 - Spinal stenosis, cervical region Category: Medical (4) Migraine, unspecified, not intractable, without status migrainosus: Comment: childhood onset Code(s): G43.909 - Migraine, unspecified, not intractable, without status migrainosus Category: Medical (5) Abnormal finding on MRI of brain: Comment: left superior medial parietal cortex 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 Code(s): R90.89 - Other abnormal findings on diagnostic imaging of central nervous system Category: Medical Plan For left superior medial parietal cortex abnormality: Head CTA (per Dr. Leung) [facility] For left arm numbness, tingling, pain: C-spine X-ray report showed multilevel degenerative changes and mild-mod cervical neural foraminal stenosis. Left upper extremity EMG/NCS (nerve conduction study), results showed mild- moderate left carpal tunnel syndrome, mild left ulnar/cubital neuropathy, chronic left lower cervical radiculopathy. Discontinue Gabapentin 100-300mg qhs- patient did not tolerate. Referral ordered for orthopedic and pain management consult- at [facility]. ? For right eye blepherospasm: Continue Botox up to 100 units in right eye/cheek muscles q 12 weeks- w/ Dr Hernandez. ? For Parkinson's and REM sleep behavior disorder: * Once Rytary is available, discontinue Sinemet CR 25-100mg- 1 tab 5 x's per day- 5am, 9am, 1pm, 5pm, 9pm. * Trial Rytary- in hopes this allows patient to take less doses per day, without exacerbating hallucinations and sleep behaviors, and improves waking on time. * Rytary instructions Take Rytary 23.75-95 mg cap, 1 cap orally 4 times a day, with Rytary 36.25- 145 mg cap 1 cap orally 4 times a day. For a total Rytary dose of 240 mg per dose. Take the 1st dose of Rytary, when he 1st wakes up in the morning and then take Rytary every 4-5 hours (max 4 times per day). If you do not tolerate this in any way, please reach out to me, and we can adjust the doses and timing. * Previous trials: CD LD IR- ineffective, not tolerated. CD LD ER- ineffective, off times, increasing hallucinations. * For sleep: Please remember that likely you do not need to sleep from 10pm through 9am. Year daytime energy level and sleepiness may vary based on how will you slept the night before or review woke up early to go to an appointment. * Continue Quetiapine 25mg- 2 tabs (50mg) qhs- monitor hallucinations. * Continue Melatonin 10mg. * Continue Clonazepam 2 mg for REM sleep behaviors. * Future considerations: Follow-up sleep study * For runny nose while eating- try to do your speech therapy exercises regularly If this continues, consider retrying MEDICAL VIDEOGRAPHER Tx. * For constipation- Continue dietary fiber, taking prunes/prune juice, Miralax- use prn no BM in 2 days.. * For lightheadedness prevention- take 1 small bottle sports drink in am. * For mood- have you been able to make a therapy appointment yet? * Baseline neuropsych eval previously ordered- have you heard from [facility] [place] for the neuropsych eval? * Please try to increase exercise- walking, riding a stationary bike, going to the gym. An ideal goal is at least 30 minutes per day. * Future considerations: Nuplazid ? For Migraine- * Continue Sumatriptan prn. * Future considerations- trial of as needed Nurtec or Ubrelvy. If you have not already, you should discuss your Parkinson's diagnosis with his [facility] healthcare team. . VA and PACT Act information previously shared w/ pt and . Will follow-up upon review of above and patient to follow-up in clinic in 6 months or sooner prn. Orders: Referrals Pain Management Referral G20.A1 - Parkinson's disease without dyskinesia, without mention of fluctuations, M48.02 - Spinal stenosis, cervical region, R20.2 - Paresthesia of skin Orthopedics Referral G56.02 - Carpal tunnel syndrome, left upper limb, G56.22 - Lesion of ulnar nerve, left upper limb, R20.2 - Paresthesia of skin Medications: New carbidopa-levodopa 23.75-95 mg ER (Rytary) Take with Rytary 36.25-145 mg cap to total 240 mg per dose. 1 cap PO QID 120 caps 6RF 30 days carbidopa-levodopa 36.25-145 mg ER (Rytary) Take with Rytary 23.75-95mg cap to total 240 mg per dose. 1 cap PO QID 120 caps 6RF 30 days Refilled clonazepam administer 30 minutes before bedtime 2 mg PO BEDTIME 90 tabs 1RF REM sleep behaviors 90 days G20.A1 - Parkinson's disease without dyskinesia, without mention of fluctuations, G47.52 - REM sleep behavior disorder sumatriptan succinate take 1 tab at onset of headache; if no relief, may repeat 1 tab after at least 2 hrs; max = 2 tabs/24 hrs orally PRN; 12 tabs 3RF migraine headache 30 days Discontinued carbidopa-levodopa 25-100 mg ER Discontinued Reason: Doctor's Order 1 tab orally 5 x's per day; 90 days 450 tabs 2RF Coding Level of Care Code Est Pt Level 4 (92382) Complex EM visit Add On G2211 Diagnoses Parkinson's disease without dyskinesia G20.A1 Paresthesia of left upper extremity R20.2 Neural foraminal stenosis of cervical spine M48.02 Migraine, unspecified, not intractable, without status migrainosus G43.909 Abnormal finding on MRI of brain R90.89
[2024-11-01 11:48] VITALS: BP 110/70; PULSE 92; O2SAT 96; BMI 28.2
--- OUTSIDE RECORDS SUMMARY | 2024-11-01 12:50 | XMS_ITS | Encounter Summary ---
Author Organization [facility] Address [id number] [place] [phone] Care Team Providers Care Academic Dean Name Role Phone Kade Mcclellan MD Primary Care Provider [phone] Encounter Details Date Type Department Care Team (Late Contact Info) Description 09/21/[address] [facility] - Main Lab [address] [facility] [place] [phone] Roque Granados MD [address] [address] Esophagitis, unspecified without bleeding Social History Tobacco Use Types Packs/Day Years Used Date Smoking Tobacco: Never Smokeless Tobacco: Never Alcohol Use Standard Drinks/Week Comments Not Currently 0 (1 standard drink = 0.6 oz pur e alcohol) Sex and Gender Information Value Date Recorded Sex Assigned at Not on file Gender Identity Not on file Sexual Orientation Not on file Job Start Date Occupation Industry Not on file Not on file Not on file documented as of this encounter Plan of Treatment Upcoming Encounters Date Type Department Care Team (Late Contact Info) Description 01/12/2025 10:00 AM EDT Office Visit Gastroenterology - 299 [place] [address] [facility] [address] [place] [phone] Roque Granados MD [address] [phone] documented as of this encounter Procedures Procedure Name Priority Date/Time Associated Diagnosis Comments TISSUE EXAM Routine 09/20/2024 Esophagitis, unspecified without bleeding documented in this encounter Results * Tissue Exam (09/20/2024) Final Diagnosis Esophagus, biopsy: Esophageal squamous mucosa with patchy increase in intraepithelial lymphocytes and focal spongiosis; no intraepithelial eosinophils identified. 09/23/2024 8:58 AM EST [facility] Clinical Information Dysphagia Finding:R/O eosinophilic esophagitis 09/23/2024 8:58 AM EST [facility] Gross Description A. Esophagus, esophagus biopsy: Labeled esophagus R/O eosinophilic esophagitis . Received in formalin are five soft to friable weight tissue fragments measuring approximately 0.25 cm in greatest diameter, which are wrapped in paper and submitted in toto in one cassette, five pieces, multiple levels. TS 09/23/2024 8:58 AM [facility] Disclaimer Unless otherwise specified, all tissue is 10% NB formalin fixed and paraffin embedded. 09/23/2024 8:58 AM [facility] Tissue Esophageal structure / Unknown 09/20/2024 09/21/2024 6:49 AM EST Roque Granados MD LAB PATHOLOGY [facility] [address] [place] [address], documented in this encounter Visit Diagnoses Diagnosis Esophagitis, unspecified without bleeding documented in this encounter Care Teams Academic Dean Relationship Specialty Start Date End Date Kade Mcclellan MD [address] [address] PCP - General 08/12/23 documented as of this encounter
--- OUTSIDE RECORDS SUMMARY | 2024-11-01 12:50 | XMS_ITS | Encounter Summary ---
Author Organization [facility] Address [address] [place] [address] Care Team Providers Care Rip Saw Operator Name Role Phone Kade Mcclellan MD Primary Care Provider Reason for Visit * Reason Onset Date Comments Disability Paperwork 09/20/2020 Encounter Details Date Type Department Care Team (Late st Contact Info) Description 09/20/2020 Telephone [facility] [address] [place] [phone] Orlando Bailey MD [address] [place] [phone] Disability Paperwork Social History Tobacco Use Types Packs/Day Years Used Date Smoking Tobacco: Some Days Cigars Smokeless Tobacco: Never Comments:approximately 1 per week Alcohol Use Standard Drinks/Week Comments Not Currently 0 (1 standard drink = 0.6 oz pur e alcohol) Sex and Gender Information Value Date Recorded Sex Assigned at Male 11/06/2023 10:40 AM EST Legal Sex Male 1:55 PM EST Gender Identity Male 11/06/2023 10:40 AM EST Sexual Orientation Straight 11/06/2023 9: 12 PM EST documented as of this encounter Miscellaneous Notes * Telephone Encounter - ISAAC Blount - 09/20/2020 2:57 PM EST Re-Faxed * Telephone Encounter - Violet Duke LPN - 09/20/2020 10:38 AM EST Stef Camargo Pt called and said the Ins [employer] didn't get the disability paperwork that was faxed to them. They are asking if you can refax it. Thanks Aletha documented in this encounter Plan of Treatment Upcoming Encounters Date Type Department Care Team (Late st Contact Info) Description 02/07/2025 10:00 AM EDT Follow-Up [facility] [address] [place], [place] [phone] Abner Alonso MD PhD [address] [place] [phone] documented as of this encounter Visit Diagnoses Not on filedocumented in this encounter Care Teams Rip Saw Operator Relationship Specialty Start Date End [place] [address] PCP - General 11/06/23 documented as of this encounter
--- OUTSIDE RECORDS SUMMARY | 2024-11-01 12:50 | XMS_ITS | Clinical Summary ---
Author Organization [facility] [address] [facility] Address [address] [place] [address] Phone Care Team Providers Care Timber Faller Name Role Phone Kade Mcclellan MD Primary Care Provider Allergies Active Allergy Reactions Criticality Noted Date Comments Atorvastatin 08/12/2023 Medications Medication Sig Dispensed Refills Start Date End Date Status pravastatin (PRAVACHOL) 20 mg tablet See Instructions, 1 tab PO every other day at bedtime to replace simvastatin, # 45 tablet, Refills 1, Tot. Refills 1, Maintenance, 08/11/23 10:52:00 EST, Instructions Replace Required Details, Route to Pharmacy Electronically, [facility]/pharmacy #[id number], P... 08/11/2023 Active amLODIPine (NORVASC) 10 mg tablet Take by mouth. 06/07/2020 Active carbidopa-levodopa CR (SINEMET CR) 25-100 mg per CR tablet 4 (four) times a day. 10/23/2022 Active clonazePAM (KlonoPIN) 2 mg tablet PLEASE SEE ATTACHED FOR DETAILED DIRECTIONS 12/30/2022 Active blood-glucose meter,continuous (Dexcom G7 Artificial Flowers Dyer) misc by Other route. 01/17/2023 Activ e dulaglutide (Trulicity) 3 mg/0.5 mL pen injector injection Inject 3 mg into the skin. 07/30/2023 Active empagliflozin (Jardiance) 25 mg tablet TAKE 1 TABLET BY MOUTH EVERY DAY IN THE MORNING FOR 90 DAYS 11/26/2022 Active blood sugar diagnostic (OneTouch Verio test strips) test strip 1 Each by Other route. 01/10/2023 Active ketorolac (ACULAR) 0.4 % ophthalmic solution apply 1 Drop to the eye. 01/03/2021 Active magnesium oxide (MAG-OX) 400 mg (241.3 elemental magnesium) tablet Take 1 tablet (400 mg total) by mouth 1 (one) time each day. 10/25/2022 Active melatonin 10 mg tablet Take 10 mg by mouth. 11/13/2021 Active metFORMIN (GLUCOPHAGE) 1,000 mg tablet Take by mouth. 10/28/2017 Active omeprazole (PriLOSEC) [address] capsule Take by mouth. 04/18/2020 Active QUEtiapine (SEROquel) 25 mg tablet TAKE 2 TABLETS BY MOUTH DAILY AT BEDTIME FOR 90 DAYS 07/19/2020 Active riboflavin (VITAMIN B2) 400 mg tablet TAKE 1 TABLET ORALLY DAILY FOR 30 DAYS IN AM 12/26/2022 Active SUMAtriptan (IMITREX) 100 mg tablet Take 1 Tablet by mouth. 11/13/2021 Active valsartan-hydroCHLO ROthiazide (DIOVAN-HCT) 160-25 mg per tablet Take 1 tablet by mouth 1 (one) time each day. 08/19/2020 Active polyethylene glycol 3350 (GLYCOLAX ORAL) Take 17 g by mouth daily. Active semaglutide (Ozempic) 2 mg/dose (8 mg/3 mL) injection pen Inject 2 mg under the skin every 7 (seven) days. Active ezetimibe (ZETIA) 10 mg tablet Take 1 tablet (10 mg total) by mouth 1 (one) time each day. Active polyethylene glycol (MIRALAX) 17 gram packetIndications:G eneralized abdominal pain,Constipation, unspecified constipation type Take 17 g by mouth 1 (one) time each day. 510 g 11 10/19/2024 10/19/2025 Active Active Problems Problem Noted Date Diagnosed Date Stenosis of right carotid artery 08/31/2024 Abnormal finding on MRI of brain 08/14/2023 Overview (08/19/2024): Last Assessment & Plan: Mr. Mars returns after further imaging studies been performed. His exam is the same. He had a CTA of the head with contrast at [facility] on 08/19/2023 which showed 50% stenosis of the supraclinoid right ICA where the remainder of the flow bolus is intact. There was no discussion of the left parietal cortex or skull hemangioma which was the interface we were concerned about based on previous imaging. He also underwent a carotid ultrasound on 09/04/2023 which was normal bilaterally. At this point, he can continue on as he has been, he can drive and they can travel whether by plane or on a cruise. I will contact the radiologist who read the CTA to focusing on the area in question and see if it actually provides any further information about a possible connection between the skull lesion in the underlying atypical brain. Chronic GERD 08/12/2023 Class 1 obesity 08/12/2023 Diverticulosis 08/12/2023 DM (diabetes mellitus) type II, controlled, with peripheral vascular disorder 08/12/2023 Elevated LFTs 08/12/2023 Hallucinosis 08/12/2023 Lipoma 08/12/2023 Nephrolithiasis 08/12/2023 REM sleep behavior disorder 08/12/2023 Hypotestosteronemia in male 08/11/2023 Major depressive disorder, single episode, moder ate 08/11/2023 Right groin pain 08/11/2023 Slurred speech 08/11/2023 Low testosterone 04/14/2023 Overview (08/19/2024): Last Assessment & Plan: Slightly low total testosterone 273 noted in 11/21 by PCP. Repeat testing in 02/18 was 232. Patient has some decrease in libido and ED for years. Added total and free testosterone as well as LH and FSH to next labs. Will discuss results through [place] Parkinson disease 01/10/2023 Diabetes 08/23/2020 Migraine headache 08/23/2020 Serrated polyp of colon 01/21/2018 Overview (08/19/2024): Repeat colonoscopy in 2020 Serrated polyp of colon 01/21/2018 Overview (08/31/2024): Repeat colonoscopy in 2020 HLD (hyperlipidemia) 03/10/2006 HTN (hypertension) 03/10/2006 Encounters Date Type Department Care Team Description 10/19/2024 9:00 AM EST Office Visit Gastroenterology - [address] [place] [address] [phone] Roque Granados MD Generalized abdominal pain (Primary Dx); Constipation, unspecified constipation type 09/27/2024 Telephone Gastroenterology - [address] [address] [place] [address] Medina Lynn MA LMOM TO BOOK F/U 09/21/2024 Lab Requisition [facility] - Main Lab [address] [facility] [place] [phone] Roque Granados MD Esophagitis, unspecified without bleeding 08/31/2024 1:40 PM EST Office Visit Gastroenterology - [address] [place] [phone] Tracey Castellanos PA Gastroesophageal reflux disease, unspecified whether esophagitis present (Primary Dx); Dysphagia, unspecified type from Last 3 Months Immunizations Name Administration Dates Next Due Influenza trivalent, with pr eservative (Fluzone; Afluria) 6mo and older 11/18/2022,06/30/2021 Pneumococcal polysaccharide 23 valent (Pneumovax 23) 2yo and older 11/13/2021 Td Tetanus diptheria (Tdvax) 7yo and older 07/22 Tdap Tetanus diptheria acell ular pertussis (Boostrix; Adacel) 7yo and older 03/17/2008 Surgical History Surgery Date Site/Laterality Comments COLONOSCOPY 11/27/2022 - 12/27/2022 Family History Medical History Relation Name Comments Colon polyps Father Colon cancer Neg Hx Relation Name Status Comments Father Social History Tobacco Use Types Packs/Day Years [...] file Not on file Not on file Obstetrics History Last Filed Vital Signs Vital Sign Reading Time Taken Comments Blood Pressure - - Pulse - - Temperature - - Respiratory Rate - - Oxygen Saturation - - Inhaled Oxygen Concentration - - Weight 91.2 kg (201 lb) 10/19/2024 8:47 AM EST Height 177.8 cm (5' 10 ) 10/19/2024 8:47 AM EST Body Mass Index 28.84 10/19/2024 8:47 AM EST Plan of Treatment Upcoming Encounters Date Type Department Care Team (Late st Contact Info) Description 01/12/2025 10:00 AM EDT Office Visit Gastroenterology - [address] [place] [address] [place] [address] Roque Granados MD [address] [place] [address] Health Maintenance Due Date Last Done Comments Diabetes: Annual Foot Exam 1973 Diabetes: Annual Retina Eye Exam 1973 Zoster Vaccines (1 of 2) 2013 Pneumococcal Vaccine: Pediatrics (0 to 5 Years) and At-Risk Patients (6 to 64 Years) (2 of 2 - PCV) 11/13/2022 11/13/2021 RSV Immunization Patients 60+ Years Old (1 - Risk 60-74 years 1-dose series) 2023 Cholesterol Screening (Lipid Panel) 10/29/2023 Colorectal Cancer Screening: Colonoscopy 10/29/2023 Depression Screening 10/29/2023 HIV Screening 10/29/2023 Hepatitis C Screening 10/29/2023 Social Influencers of Health Screening 10/29/2023 Diabetes: Blood Sugar Control Test (HGBA1C) 12/24/2023 06/25/2023 COVID-19 Vaccine ( season) 2024 01/30/2021, 01/02/2021 Diabetes: Annual Urine Albumin-Creatinine Ratio (uACR) 10/15/2024 10/15/2023 Diabetes: Annual GFR (Glomerular Filtration Rate) 10/15/2024 10/15/2023, 06/25/2023 Hypertension/CHF/CAD Annual BMP Blood Test 10/15/2024 10/15/2023, 06/25/2023 DTaP,Tdap,and Td Vaccines (3 - Td or Tdap) 07/22/2031 07/22/2021, 03/17/2008 Influenza Vaccine Completed 07/15/2024, , 11/18/2022, Additional history exists HIB Vaccines Aged Out No longer eligi ble based on patient's age to complete this topic HPV Vaccines Aged Out No longer eligi ble based on patient's age to complete this topic Hepatitis A Vaccines Aged Out No long er eligible based on patient's age to complete this topic Hepatitis B Vaccines Aged Out No long er eligible based on patient's age to complete this topic IPV Vaccines Aged Out No longer eligi ble based on patient's age to complete this topic MMR Vaccines Aged Out No longer eligi ble based on patient's age to complete this topic Meningococcal ACWY Vaccine Aged Out N o longer eligible based on patient's age to complete this topic RSV Immunization Patients Under 20 months Aged Out No longer eligible based on patient's age to complete this topic Varicella Vaccines Aged Out No longer eligible based on patient's age to complete this topic Procedures Procedure Name Priority Date/Time Associated Diagnosis Comments EXTERNAL ENDOSCOPY REPORT Routine 09/20/2024 4:04 PM EST TISSUE EXAM Routine 09/20/2024 Esophagitis, unspecified without bleeding ANNUAL BMP BLOOD TEST Routine 06/25/2023 HEMOGLOBIN A1C Routine 06/25/2023 from Last 3 Months or Most Recently Relevant to Health Maintenance Results * External Endoscopy (09/20/2024 4:04 PM EST) Anatomical Region Laterality Modality Endoscopy Historical Provider GI~PROCEDURE ORDE RABLES * Tissue Exam (09/20/2024) Final Diagnosis Esophagus, biopsy: Esophageal squamous mucosa with patchy increase in intraepithelial lymphocytes and focal spongiosis; no intraepithelial eosinophils identified. 09/23/2024 8:58 [facility] Clinical Information Dysphagia Finding:R/O eosinophilic esophagitis 09/23/2024 8:58 AM [facility] Gross Description A. Esophagus, esophagus biopsy: Labeled esophagus R/O eosinophilic esophagitis . Received in formalin are five soft to friable weight tissue fragments measuring approximately 0.25 cm in greatest diameter, which are wrapped in paper and submitted in toto in one cassette, five pieces, multiple levels. TS 09/23/2024 8:58 AM [facility] Disclaimer Unless otherwise specified, all tissue is 10% NB formalin fixed and paraffin embedded. 09/23/2024 8:[address] [facility] Tissue Esophageal structure / Unknown 09/20/2024 09/21/2024 6:49 AM EST Roque Granados MD LAB PATHOLOGY [facility]) [facility] [address] [place] [address], * Annual BMP Blood Test (06/25/2023) Annual BMP Blood Test abstracted Historical Provider [facility] * Hemoglobin A1c (06/25/2023) Hemoglobin A1C 0.0 % Comment:no interpretation, a bstracted Blood Venous blood specimen / Unknown Historical Provider LAB BLOOD ORDERAB LES from Last 3 Months or Most Recently Relevant to Health Maintenance Care Teams Timber Faller Relationship Specialty Start Date End Date Kade Mcclellan MD [address] [place] [id number] PCP - General 08/12/23
--- OUTSIDE RECORDS SUMMARY | 2024-11-01 12:51 | XMS_ITS | Referral Summary ---
Author Organization [facility] Address [address] [place] [address] Care Team Providers Care Certified Orthotist/Pedorthist Name Role Phone Kade Mcclellan MD Primary Care Provider Allergies Active Allergy Reactions Criticality Noted Date Comments Atorvastatin Dystonia 08/23/2020 Medications amLODIPine (NORVASC) 10 mg tablet Take 10 mg by mouth daily. 0 Active carbidopa-levo dopa (SINEMET) 25-100 mg per tablet Take 1 tablet by mouth 3 times a day. 0 Active omeprazole (PriLOSEC) 40 mg capsule Take 40 mg by mouth daily. 0 Active metFORMIN ER (GLUCOPHAGE XR) 500 mg tablet TAKE 2 TABLETS BY MOUTH TWICE A DAY FOR 90 DAYS 0 Active glipiZIDE XL (GLUCOTROL XL) 5 mg tablet TAKE 2 TABLETS BY MOUTH TWICE DAILY BEFORE BREAKFAST AND BEFORE DINNER 0 Active clonazePAM (KlonoPIN) 0.5 mg tablet 1 mg nightly. 0 Active valsartan-hydr ochlorothiazid e (DIOVAN-HCT) 160-25 mg per tablet 0 Active topiramate (TOPAMAX) 25 mg tablet 25 mg daily. 0 Active Farxiga 5 mg tablet Take 1 tablet by mouth daily. 0 Active Trulicity 1.5 mg/0.5 mL injection dose INJECT 1.5 MG ONCE A WEEK ON SUNDAYS SUBCUTANEOUSLY 90 DAYS 0 Active QUEtiapine (SEROquel) 25 mg tablet TAKE 1 TABLET BY MOUTH TWICE A DAY FOR 30 DAY 0 Active empagliflozin (JARDIANCE) 25 mg tablet Take 25 mg by mouth once a day. Active ezetimibe (ZETIA) 10 mg tablet Take 10 mg by mouth once a day. Active RIBOFLAVIN, VITAMIN B2, ORAL Take by mouth. Activ e blood-glucose sensor ([employer] G7 Sensor) device 1 each. Change sensor every 10 days. Active sildenafiL (VIAGRA) 100 mg tablet Take 100 mg by mouth as needed for erectile dysfunction. Active SUMAtriptan (IMITREX) 100 mg tablet Take 100 mg by mouth daily as needed for migraine. May repeat dose once in 2 hours if no relief. Do not exceed 2 doses in 24 hours. Active cyanocobalamin (VITAMIN B12) 500 mcg tablet Take 500 mcg by mouth once a day. Active Active Problems Problem Noted Date Diagnosed Date Diabetes 08/23/2020 HTN (hypertension) 08/23/2020 HLD (hyperlipidemia) 08/23/2020 Migraine headache 08/23/2020 Social History Tobacco Use Types Packs/Day Years Used Date Smoking Tobacco: Some Days Cigars Smokeless Tobacco: Never Tobacco Cessation:Ready to Q uit: Not Asked; Counseling Given: Not Answered Comments:approximately 1 per week Alcohol Use Standard Drinks/Week Comments Not Currently 0 (1 standard drink = 0.6 oz pur e alcohol) Sex and Gender Information Value Date Recorded Sex Assigned at Male 11/06/2023 10:40 AM EST Legal Sex Male 1:55 PM EST Gender Identity Male 11/06/2023 10:40 AM EST Sexual Orientation Straight 11/06/2023 9: 12 PM EST Last Filed Vital Signs Vital Sign Reading Time Taken Comments Blood Pressure 111/76 07/09/2024 10:13 AM EDT Pulse 99 07/09/2024 10:13 AM EDT Temperature 36.4 ??C (97.5 ??F) 11/10/2023 9:06 AM ES T Respiratory Rate 18 07/09/2024 10:13 AM EDT Oxygen Saturation 94% 07/09/2024 10:13 AM EDT Inhaled Oxygen Concentration - - Weight 101.6 kg (224 lb) 08/23/2020 1:47 PM EST Height 172.7 cm (5' 8 ) 08/23/2020 1:47 PM EST Body Mass Index 34.06 08/23/2020 1:47 PM EST Plan of Treatment Upcoming Encounters Date Type Department Care Team (Late st Contact Info) Description 02/07/2025 10:00 AM EDT Follow-Up [facility] [address] [place] [address] Abner Alonso MD PhD [address] [place] [address] Insurance [facility] KEILA MURCIA [id number] Care Teams Certified Orthotist/Pedorthist Relationship Specialty Start Date End Date [place] [address] PCP - General 11/06/23
--- OUTSIDE RECORDS SUMMARY | 2024-11-01 12:51 | XMS_ITS | Encounter Summary ---
Author Organization [facility] Address [address] [place] [address] Care Team Providers Care Pharmacovigilance Safety Expert Name Role Phone Kade Mcclellan MD Primary Care Provider [phone] Reason for Visit * Reason Onset Date Comments Paperwork for a claim 09/07/2020 Encounter Details Date Type Department Care Team (Late st Contact Info) Description 09/07/2020 Telephone [facility] [address] [place] [phone] Orlando Bailey MD [address] [place] [phone] Paperwork for a claim Social History Tobacco Use Types Packs/Day Years [...] * Telephone Encounter - ISAAC Blount - 09/14/2020 1:45 PM EST Re-faxed clinical notes to [phone] * Telephone Encounter - Violet Duke LPN - 09/14/2020 11:39 AM EST Stef Camargo, Pt calling about the disability paperwork. He said apparently the Ins Co didn't get it. Fax number is [phone]. Case number is [id number]. curb worker is Zander Ma Phone is [phone]. Thanks Aletha * Telephone Encounter - ISAAC Blount - 09/07/2020 3:30 PM EST We received the fax from [employer] requesting a copy of the last clinical note. I faxed it and received confirmation. * Telephone Encounter - Violet Duke LPN - 09/07/2020 11:36 AM EST Stef Camargo, This gentleman called. He is a pt of Dr. Bailey. He asked for our fax number so his Ins. Co can fax over some paperwork for Dr. Bailey to fill out for a claim. Pt.'s number is [phone]. Thanks Aletha documented in this encounter Plan of Treatment Upcoming Encounters Date Type Department Care Team (Late st Contact Info) Description 02/07/2025 10:00 AM EDT Follow-Up [facility] [address] [place] [address] Abner Alonso MD PhD [address] [place] [address] documented as of this encounter Visit Diagnoses Not on filedocumented in this encounter Care Teams Pharmacovigilance Safety Expert Relationship Specialty Start Date End [place] [address] PCP - General 11/06/23 documented as of this encounter
--- OUTSIDE RECORDS SUMMARY | 2024-11-01 12:51 | XMS_ITS | Clinical Summary ---
Author Organization [facility] Address [address] [place] [address] Care Team Providers Care Employment Officer Name Role Phone Kade Mcclellan MD Primary [...] Take by mouth. Activ e blood-glucose sensor ([employer] G7 Sensor) device 1 each. Change sensor [...] 08/23/2020 HLD (hyperlipidemia) 08/23/2020 Migraine headache 08/23/2020 Family History Medical History Relation Name Comments Diabetes Father Hypertension Father Lymphoma Father Cancer Mother Diabetes Mother Hypertension Mother Parkinsonism Sister Relation Name Status Comments Father Alive Mother Alive Sister Social History Tobacco Use Types Packs/Day Years [...] Info) Description 02/07/2025 10:00 AM EDT Follow-Up [facility] [address] [place] [address] Abner Alonso MD PhD [address] [place], [place] [id number] Health Maintenance Due Date Last Done Comments Cologuard 1965 Colon Cancer Screening 1963 Colonoscopy 1963 FOBT / Fit Test 1963 HIV Screening 1963 Hepatitis C Screening 1963 Sigmoidoscopy [address] Lung Cancer Screening (Baseline) 2013 Zoster Vaccines (1 of 2) 2013 Pneumococcal Vaccine: Pediatric (0-5 Years) and At-Risk Patients (6-64 Years) (2 of 2 - PCV) 11/13/2022 11/13/2021 COVID-19 Vaccine (3 - 2023- season) 2024 01/30/2021, 01/02/2021 Influenza Vaccine (#1) 2024 , 11/18/2022, 06/30/2021 Hemoglobin A1C 07/24/2024 01/23/2024, 09/29, 06/25/2023, Additional history exists Alcohol/Substance Use Screening 09/29/2024 Depression Screening and Follow-Up 09/29/2024 Social Drivers of Health Annual Screening 09/29/2024 Urine Microalbumin 10/15/2024 10/15/2023 Basic Metabolic Panel 05/15/2025 05/15/2024 , 01/23/2024, 10/15/2023 DTaP,Tdap,and Td Vaccines (3 - Td or Tdap) 07/22/2031 07/22/2021, 03/17/2008 RSV Vaccine (60+ years old and patients) (1 - 1-dose 75+ series) 2038 Hepatitis B Vaccines Aged Out No long er eligible based on patient's age to complete this topic Insurance [facility] KEILA MURCIA [id number] Care Teams Employment Officer Relationship Specialty Start Date End Date [place] [address] PCP - General 11/06/23
--- OUTSIDE RECORDS SUMMARY | 2024-11-01 12:51 | XMS_ITS | Encounter Summary ---
Author Organization [facility] Address [address] [place] [address] Care Team Providers Care Bar Gauger And Lubricator Tender Name Role Phone Kade Mcclellan MD Primary Care Provider Reason for Visit * Reason Comments Follow-up Post egd Encounter Details Date Type Department Care Team ([facility] st Contact Info) Description 10/19/2024 9:00 AM EST Office Visit Gastroenterology - 299 [address] [facility] [address] [place] [phone] Roque Granados MD 299 [facility] [address] [place] [address] Generalized abdominal pain (Primary Dx); Constipation, unspecified constipation type Social History Tobacco Use Types Packs/Day Years [...] on file documented as of this encounter Last Filed Vital Signs Vital Sign Reading Time Taken Comments Blood Pressure - - Pulse - - Temperature - - Respiratory Rate - - Oxygen Saturation - - Inhaled Oxygen Concentration - - Weight 91.2 kg (201 lb) 10/19/2024 8:47 AM EST Height 177.8 cm (5' 10 ) 10/19/2024 8:47 AM EST Body Mass Index 28.84 10/19/2024 8:47 AM EST documented in this encounter Ordered Prescriptions Prescription Sig Dispensed Refills Start Date End Da te polyethylene glycol (MIRALAX) 17 gram packetIndications:Generali zed abdominal pain,Constipation, unspecified constipation type Take 17 g by mouth 1 (one) time each day. 510 g 11 10/19/2024 10/19/2025 documented in this encounter Progress Notes * Roque Granados MD - 10/19/2024 9:00 AM EST CHIEF COMPLAINT: No chief complaint on file. When burping a rotting smell. Told possibly food stays up. They recommended endoscopy. Still bupring a little bit. On omeprazole. No vomiting. Weight is coming down. On Ozempic...5-6 months. Weight 229 to 189. This problem new since Ozempic. HPI: Hu Mars is a 59 y.o. old male with pertinent past medical history of Parkinson's disease, T2DM, and GERD who was originally referred to us by Kade Mcclellan MD now presents to thegastroenterology department today for consultation of GERD and dysphagia. Reports 2 years of dysphagia with solids, worsening with time. Had swallow study with speech language pathology in November 2023 at [place], revealed no evidence of laryngeal penetration or aspiration. GOLF COACH report unavailable for review. Reports several episodes of choking or biting tongue while eating. Upper endoscopy was done which essentially was unremarkable there was a question of a stricture butdilation did not really change it. I did biopsy the esophagus which was unremarkable. 2-3 months ago onset of halitosis. Worse at bedtime. PCP ordered H.pylori stool test which was negative. Reports chronic heartburn, has used omeprazole 40mg daily for several years. If skipping a dose, severe symptoms. When compliant with medication, symptoms controlled. Concerned about long-term use ofPPI, had EGD but very long time ago. Pt unsure of results. Patient reports occasional constipation, BM every 2-3 days. Was on Mirilax. Needs refills. No bloodin stool. Not on a special food/diet.. Denies hematochezia, melena, regurgitation or emesis Colonoscopy two years ago at [facility]. No polyps. Negative fh colon cancer or polyps. ROS: GENERAL: No malaise, significant weight loss or fever HEENT: No changes in hearing or vision, nose bleeds or swallowing problems NECK: No lumps, goiter, pain or significant neck swelling RESPIRATORY: No cough, wheezing or shortness of breath CARDIOVASCULAR: No chest pain, leg swelling or palpitations GI: See above MUSCULOSKELETAL: No joint pain or swelling, back pain, or muscle pain. SKIN: No lesions, rash or itching The remainder of the review of systems is reviewed and negative. 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 PAST SURGICAL HISTORY: Past Surgical History: Procedure Laterality Date COLONOSCOPY 11/2022 SOCIAL HISTORY: Social History Tobacco Use Smoking status: Never Smokeless tobacco: Never Substance Use Topics Alcohol use: Not Currently FAMILY HISTORY: Family History Problem Relation Name Age of Onset Colon polyps Father Colon cancer Neg Hx ACTIVE MEDICATIONS: Current Outpatient Medications Medication Sig Dispense Refill amLODIPine (NORVASC) 10 mg tablet Take by mouth. blood sugar diagnostic (Divshot[employer] Verio test strips) test strip 1 Each by Other route. blood-glucose meter,continuous ([employer] G7 Filler Shredder) misc by Other route. carbidopa-levodopa CR (SINEMET CR) 25-100 mg per CR tablet 4 (four) times a day. clonazePAM (KlonoPIN) 2 mg tablet PLEASE SEE ATTACHED FOR DETAILED DIRECTIONS dulaglutide (Trulicity) 3 mg/0.5 mL pen injector injection Inject 3 mg into the skin. (Patient not taking: Reported on 08/31/2024) empagliflozin (Jardiance) 25 mg tablet TAKE 1 TABLET BY MOUTH EVERY DAY IN THE MORNING FOR 90 DAYS ezetimibe (ZETIA) 10 mg tablet Take 1 tablet (10 mg total) by mouth 1 (one) time each day. ketorolac (ACULAR) 0.4 % ophthalmic solution apply 1 Drop to the eye. magnesium oxide (MAG-OX) 400 mg (241.3 elemental magnesium) tablet Take 1 tablet (400 mg total) by mouth 1 (one) time each day. (Patient not taking: Reported on 08/31/2024) melatonin 10 mg tablet Take 10 mg by mouth. metFORMIN (GLUCOPHAGE) 1,000 mg tablet Take by mouth. omeprazole (PriLOSEC) [address] capsule Take by mouth. polyethylene glycol 3350 (GLYCOLAX ORAL) Take 17 g by mouth daily. pravastatin (PRAVACHOL) 20 mg tablet See Instructions, 1 tab PO every other day at bedtime to replace simvastatin, # 45 tablet, Refills 1, Tot. Refills 1, Maintenance, 08/11/23 10:52:00 EST, Instructions Replace Required Details, Route to Pharmacy Electronically, [facility]/pharmacy #[id number], P... (Patient not taking: Reported on 08/31/2024) QUEtiapine (SEROquel) 25 mg tablet TAKE 2 TABLETS BY MOUTH DAILY AT BEDTIME FOR 90 DAYS riboflavin (VITAMIN B2) 400 mg tablet TAKE 1 TABLET ORALLY DAILY FOR 30 DAYS IN AM semaglutide (Ozempic) 2 mg/dose (8 mg/3 mL) injection pen Inject 2 mg under the skin every 7 (seven) days. SUMAtriptan (IMITREX) 100 mg tablet Take 1 Tablet by mouth. valsartan-hydroCHLOROthiazide (DIOVAN-HCT) 160-25 mg per tablet Take 1 tablet by mouth 1 (one) timeeach day. No current facility-administered medications for this visit. ALLERGIES: Allergies Allergen Reactions Lipitor [Atorvastatin] PHYSICAL EXAM: Visit Vitals Smoking Status Never APPEARANCE: Alert and in no acute distress EYES: PERRLA, conjunctiva and sclera normal. MOUTH/THROAT: no erythema or exudates NECK: Neck supple, no adenopathy HEART: RRR with normal S1 and S2, no murmurs appreciated LUNG: clear to auscultation LYMPH NODES: grossly normal ABDOMEN: soft non tender, no ascites, guarding, or rebound, no organomegaly. EXTREMITIES: Extremities warm and well perfused SKIN: Skin color, texture, turgor normal. NEURO: Awake, alert and oriented, normal ROM Assessment/Plan The symptoms I am hearing from him basically are entirely consistent with gastroparesis. I did review this several times with him and I believe his . He states that they did start with the Ozempic. He complains of a bad taste and really bad breath. He is losing weight but again he is on Ozempicso it is hard to really sort this out. As noted his endoscopy was negative. He denies any abdominal pain. He does use some MiraLAX for his constipation, and I did refill this.Of note is that the constipation is also gotten worse with the Ozempic, and this is to be expected.I also note that he did have a colonoscopy back in 2022. In terms of my presumptive diagnosis of gastroparesis 1 could do a gastric emptying study but on Ozempic I am not certain how valuable it would be. We spent most of our time talking about diet. I recommended a small particle low- fat diet with fluids and is much physical activity as he can do. Reglan is always an option but I am a little hesitant with all of his meds and his neurologic issue. He does have an appointment with his neurologist in about 2 weeks so I wrote the name down and asked them to ask the neurologist what she might think of this. In terms of other GI issues I am not certain if he has been screened for celiac but if he has not Iwould consider it. I did give them a 3-month recall. They also understand that if his symptoms change they should giveus a call. Assessment & Plan Generalized abdominal pain Orders: polyethylene glycol (MIRALAX) 17 gram packet; Take 17 g by mouth 1 (one) time each day. Constipation, unspecified constipation type Orders: polyethylene glycol (MIRALAX) 17 gram packet; Take 17 g by mouth 1 (one) time each day. No follow-ups on file. Gastroenterology and Hepatology Practice [facility] [email or web address] [phone] [place] [address] Roque Granados MD PROGRESS NOTE Subjective Patient ID: Hu Mars is a 59 y.o. male. No chief complaint on file. HPI Social History Socioeconomic History Marital status: Unknown Spouse name: Not on file Number of children: Not on file Years of education: Not on file Highest education level: Not on file Occupational History Not on file Tobacco Use Smoking status: Never Smokeless tobacco: Never Substance and Sexual Activity Alcohol use: Not Currently Drug use: Not on file Sexual activity: Not on file Other Topics Concern Not on file Social History Narrative Not on file No past medical history on file. Past Surgical History: Procedure Laterality Date COLONOSCOPY 11/2022 Review of Systems Constitutional: Negative. Respiratory: Negative for shortness of breath. Cardiovascular: Negative for chest pain. Gastrointestinal: Negative. Genitourinary: Negative for difficulty urinating. Skin: Negative for color change. Psychiatric/Behavioral: Negative for agitation and confusion. Objective Physical Exam Assessment/Plan Last Recorded Vitals: There were no vitals taken for this visit. Labs: No results found for: WBC , HGB , HCT , MCV , PLT No results found for: NA , K , CL , CO2 , BUN , CREATININE , CALCIUM , PROT , BILITOT , ALKPHOS , ALT , AST , GLUCOSE No results found for: WOUNDCX , BLOODCX , URINECX , CSFCX , AFBCX , MRSA Pertinent new radiology results/studies: MRI CERVICAL SPINE WITHOUT IV CONTRAST MRI CERVICAL SPINE without contrast HISTORY: Cervical radiculopathy. CONTRAST: None. COMPARISON: None. FINDINGS: C1-C2: No significant disc bulge or focal herniation. C2-C3: No significant disc bulge or focal herniation. C3-C4: No significant disc bulge or focal herniation. C4-C5: No significant disc bulge or focal herniation. C5-C6: No significant disc bulge or focal herniation. C6-C7: No significant disc bulge or focal herniation. C7-T1: No significant disc bulge or focal herniation. SPINAL CORD: Normal in size and signal. No surrounding spinal stenosis. The neural foramina are well maintained. VERTEBRAL BODY ALIGNMENT AND BONE MARROW: Fat-containing vertebral body hemangiomas in C6 and T1. PARASPINAL SOFT TISSUES: Within normal limits. CONCLUSION: Benign vertebral body hemangiomas, otherwise negative. Report reviewed and signed by : Dr. Enrique Velarde MD on 09/14/2019 10:46 AM. Workstation Name - [id number] MEDICATIONS: Current Hospital Medications: Current Outpatient Medications: amLODIPine (NORVASC) 10 mg tablet, Take by mouth., Disp: , Rfl: blood sugar diagnostic (OneTouch Verio test strips) test strip, 1 Each by Other route., Disp: , Rfl: blood-glucose meter,continuous (Dex[employer] G7 Filler Shredder) misc, by Other route., Disp: , Rfl: carbidopa-levodopa CR (SINEMET CR) 25-100 mg per CR tablet, 4 (four) times a day., Disp: , Rfl: clonazePAM (KlonoPIN) 2 mg tablet, PLEASE SEE ATTACHED FOR DETAILED DIRECTIONS, Disp: , Rfl: dulaglutide (Trulicity) 3 mg/0.5 mL pen injector injection, Inject 3 mg into the skin. (Patient nottaking: Reported on 08/31/2024), Disp: , Rfl: empagliflozin (Jardiance) 25 mg tablet, TAKE 1 TABLET BY MOUTH EVERY DAY IN THE MORNING FOR 90 DAYS, Disp: , Rfl: ezetimibe (ZETIA) 10 mg tablet, Take 1 tablet (10 mg total) by mouth 1 (one) time each day., Disp: , Rfl: ketorolac (ACULAR) 0.4 % ophthalmic solution, apply 1 Drop to the eye., Disp: , Rfl: magnesium oxide (MAG-OX) 400 mg (241.3 elemental magnesium) tablet, Take 1 tablet (400 mg total) bymouth 1 (one) time each day. (Patient not taking: Reported on 08/31/2024), Disp: , Rfl: melatonin 10 mg tablet, Take 10 mg by mouth., Disp: , Rfl: metFORMIN (GLUCOPHAGE) 1,000 mg tablet, Take by mouth., Disp: , Rfl: omeprazole (PriLOSEC) [address] capsule, Take by mouth., Disp: , Rfl: polyethylene glycol 3350 (GLYCOLAX ORAL), Take 17 g by mouth daily., Disp: , Rfl: pravastatin (PRAVACHOL) 20 mg tablet, See Instructions, 1 tab PO every other day at bedtime to replace simvastatin, # 45 tablet, Refills 1, Tot. Refills 1, Maintenance, 08/11/23 10:52:00 EST, Instructions Replace Required Details, Route to Pharmacy Electronically, [facility]/pharmacy #[id number], P... (Patient not taking: Reported on 08/31/2024), Disp: , Rfl: QUEtiapine (SEROquel) 25 mg tablet, TAKE 2 TABLETS BY MOUTH DAILY AT BEDTIME FOR 90 DAYS, Disp: , Rfl: riboflavin (VITAMIN B2) 400 mg tablet, TAKE 1 TABLET ORALLY DAILY FOR 30 DAYS IN AM, Disp: , Rfl: semaglutide (Ozempic) 2 mg/dose (8 mg/3 mL) injection pen, Inject 2 mg under the skin every 7 (seven) days., Disp: , Rfl: SUMAtriptan (IMITREX) 100 mg tablet, Take 1 Tablet by mouth., Disp: , Rfl: valsartan-hydroCHLOROthiazide (DIOVAN-HCT) 160-25 mg per tablet, Take 1 tablet by mouth 1 (one) time each day., Disp: , Rfl: Home Medications: He has a current medication list which includes the following long-term medication(s): amlodipine, carbidopa-levodopa cr, clonazepam, ezetimibe, metformin, pravastatin, quetiapine, sumatriptan, and va lsartan-hydrochlorothiazide. Patient Active Problem List Diagnosis Abnormal finding on MRI of brain Chronic GERD Class 1 obesity Diabetes (CMS/HCC) Diverticulosis DM (diabetes mellitus) type II, controlled, with peripheral vascular disorder (CMS/HCC) Elevated LFTs Hallucinosis (CMS/HCC) HLD (hyperlipidemia) HTN (hypertension) Hypotestosteronemia in male Lipoma Low testosterone Major depressive disorder, single episode, moderate (CMS/HCC) Migraine headache Nephrolithiasis Parkinson disease (CMS/HCC) REM sleep behavior disorder Right groin pain Serrated polyp of colon Slurred speech Serrated polyp of colon Stenosis of right carotid artery Roque Granados MD 3:12 PM EST documented in this encounter Plan of Treatment Upcoming Encounters Date Type Department Care Team (Late st Contact Info) Description 01/12/2025 10:00 AM EDT Office Visit Gastroenterology - [address] [phone] Roque Granados MD [address] [place] [id number] documented as of this encounter Visit Diagnoses Diagnosis Generalized abdominal pain- Primary Abdominal pain, generalized Constipation, unspecified constipation type documented in this encounter Care Teams Bar Gauger And Lubricator Tender Relationship Specialty Start Date End Date Kade Mcclellan MD [address] [address] PCP - General 08/12/23 documented as of this encounter
--- OUTSIDE RECORDS SUMMARY | 2024-11-01 12:51 | XMS_ITS | Clinical Summary ---
Author Organization [employer] [facility] Address [address] [place] [address] Care Team Providers Care Car Carder Name Role Phone Unavailable Primary Care Provider Unavailabl e Social History Tobacco Use Types Packs/Day Years Used Date Smoking Tobacco: Never Assessed Sex and Gender Information Value Date Recorded Sex Assigned at Not on file Gender Identity Not on file Sexual Orientation Not on file Plan of Treatment Health Maintenance Due Date Last Done Comments Hepatitis C Screening 1965 COVID-19 Vaccine (#1) 1963 Depression Screening 1975 Preventative Health Evaluation 1981 DTap / Tdap / Td (1 - Tdap) 1982 Colon Cancer Screening (Colonoscopy) 2008 Shingrix-Zoster Vaccine (1 of 2) 2013 Influenza Vaccine (#1) 2024 RSV Adult > 60+ Yrs or Pregn ant (1 - 1-dose 75+ series) 2038 Hepatitis B Vaccines Aged Out No long er eligible based on patient's age to complete this topic Pneumococcal Vaccine Aged Out No long er eligible based on patient's age to complete this topic RSV Ped < 20 months Aged Out No longe r eligible based on patient's age to complete this topic
== END 2024-11-01 12:18 | disposition home or self-care (01) ==
PROVIDERS: PCP Internal Medicine Sports Medicine; Visit Provider Nurse Practitioner Family
DX: G20.A1 Parkinson's disease without dyskinesia, without mention of fluctuations (principal); R20.2 Paresthesia of skin; M48.02 Spinal stenosis, cervical region; G43.909 Migraine, unspecified, not intractable, without status migrainosus; R90.89 Other abnormal findings on diagnostic imaging of central nervous system
CPT/HCPCS: 99214; G2211

== ENCOUNTER → 2024-11-01 11:32 | Outpatient (BNVA) | payer OTHER, SELFPAY | PROVIDERS: PCP Internal Medicine Sports Medicine; Visit Provider Nurse Practitioner Family | DX: G20.A1 Parkinson's disease without dyskinesia, without mention of fluctuations (principal); G43.909 Migraine, unspecified, not intractable, without status migrainosus; M48.02 Spinal stenosis, cervical region; R20.2 Paresthesia of skin; R90.89 Other abnormal findings on diagnostic imaging of central nervous system | CPT/HCPCS: 99212 ==

== ENCOUNTER 2024-11-16 08:46 | Outpatient (AMB) | payer OTHER, SELFPAY ==
--- NOTE | 2024-11-16 08:54 | A.OFFVIS_ITS ---
Vital Signs 11/16/24 08:55 Height 5 ft 10 in Weight 196 lb BMI 28.1 BP 114/64 Blood Pressure Location Rt brachial Position Sitting Pulse 108 H Pulse Source Pulse Oximeter Pulse Oximetry (%) 96 Oxygen Delivery Method Room Air Intake Visit Reasons: Botox Intake Note: patient presents for botox injection. patient is Buy and bill Allergies atorvastatin [From Lipitor] Allergy (Mild, Verified 11/16/24 08:57) pain Medication List - Last Reconciled 11/16/24 by Taryn Hernandez MD amlodipine 10 mg PO DAILY carbidopa-levodopa 23.75-95 mg ER (Rytary) 1 cap PO QID 30 days carbidopa-levodopa 36.25-145 mg ER (Rytary) 1 cap PO QID 30 days carboxymethylcellulose sodium (Refresh Contacts eye drops) 1 drp ophthalmic (eye) BID clonazepam 2 mg PO BEDTIME 90 days dulaglutide (Trulicity) 4.5 mg subcut QWEEK empagliflozin (Jardiance) 25 mg PO DAILY ezetimibe 10 mg PO DAILY glipizide ER 5 mg PO DAILY lancets (OneTouch Delica Plus Lancet) As directed magnesium oxide 400 mg PO DAILY 30 days melatonin 10 mg PO DAILY PRN metformin 1,000 mg PO .twice a day omeprazole 40 mg PO DAILY onabotulinumtoxinA (Botox) 100 units IM ONCE 12 weeks polyethylene glycol 3350 (Miralax) 17 grams PO DAILY PRN 30 days quetiapine 50 mg (2 x 25 mg) PO BEDTIME 90 days riboflavin (vitamin B2) 400 mg PO DAILY 30 days semaglutide (Ozempic) 1 mg subcut QWEEK sumatriptan succinate take 1 tab at onset of headache; if no relief, may repeat 1 tab after at least 2 hrs; max = 2 tabs/24 hrs orally PRN; 30 days valsartan-hydrochlorothiazide 160-25 mg 1 tab PO DAILY HPI Comments Details: 58y/o male comes for treatment of her blepherospasm , hemifacial spasm with botox Effectiveness of last two botox: Change in intensity of spasms-decreased Change in frequency of spasms-decreased Changes in quality of life-improved Have at least three months elapsed since last treatment (Last botox date - frequency of injections) yes Botulinum toxin type A Lot no [id number] X 1 Exp 12/2026 was diluted with 1 cc of normal saline at a concentration of 10units in 0.1 cc. Side effects were discussed and an informed consent was obtained. Muscles injected Right Lateral canthus - 15 units Right Lateral Lower eyelid-15units Right Medial lower eyelid- 5 units Right Nasolabial fold 5 units Right zygomaticus 10 units right lower lip 5 units Total used 55 units discarded 45 units PFSH Medical History Rapid eye movements from side to side GERD (gastroesophageal reflux disease) Diverticulosis HTN (hypertension) Parkinson disease Diabetes Surgical History H/O hernia repair History of vasectomy History of carpal tunnel release Family History Father Cancer Mother Hyperlipidemia Diabetes Social History Alcohol intake: never Patient Tobacco Use Status: Former Tobacco user Tobacco use type: Cigar Cigarettes Per Day: 1 Physical Exam Vital Signs: Last Vital Signs Pulse 108 H 11/16/24 08:55 BP 114/64 11/16/24 08:55 Pulse Ox 96 11/16/24 08:55 Oxygen Delivery Method Room Air 11/16/24 08:55 BMI result Body Mass Index 28.1 Neuro Other: Right Hemifacial spasm Office Procedures Botulinum toxin Injection 99046 - Facial Nerve Procedure code (CPT) selection complete Office Meds onabotulinumtoxinA 100 unit solution for injection Performing Provider: Taryn Hernandez MD Performing Location: [facility] Administered by: Taryn Hernandez MD on 11/16/24 09:29 Dose Route Admin Location Dispensed Lot Number Expiration Date [facility] [employer] 55 unit subcut 100 units [id number] [employer] 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 He will call with any side effects Orders: Orders AMB Botulinum toxin Injection Today G51.31 - Clonic hemifacial spasm, right Medications: New 2 onabotulinumtoxinA 100 units subcut ONCE 1 ea 0RF hemifacial spasm G51.31 - Clonic hemifacial spasm, right Coding Level of Care Code Est Pt Level 1 (12604) Diagnoses Blepharospasm of right eye G24.5 CPT Codes Botox Injection - Botox 2: 83599 - Facial Nerve ([id number])
[2024-11-16 08:55] VITALS: BP 114/64; PULSE 108; O2SAT 96; BMI 28.1
--- OUTSIDE RECORDS SUMMARY | 2024-11-16 09:15 | XMS_ITS | Encounter Summary ---
Author Organization [facility] Address [address] [place] [address] Care Team Providers Care Finance Advisor Name Role Phone Kade Mcclellan MD Primary Care Provider Reason for Visit * Reason Comments Follow-up Post egd Encounter Details Date Type Department Care Team ([facility] st Contact Info) Description 10/19/2024 9:00 AM EST Office Visit Gastroenterology - 299 [address] [facility] [address] [place] [phone] Roque Granados MD 299 [facility] [address] [place] [phone] Generalized abdominal pain (Primary Dx); Constipation, unspecified constipation type Social History Tobacco Use Types Packs/Day Years Used Date Smoking Tobacco: Never Smokeless Tobacco: Never Alcohol Use Standard Drinks/Week Comments Not Currently 0 (1 standard drink = 0.6 oz pur e alcohol) Sex and Gender Information Value Date Recorded Sex Assigned at Not on file Legal Sex Male 4:47 PM EST Gender Identity Not on file Sexual Orientation Not on file documented as of this [...] in this encounter Ordered Prescriptions Prescription Sig Dispense Quantity Refills Last Filled Start Date End Date polyethylene glycol (MIRALAX) 17 gram packetIndications:G eneralized [...] speech language pathology in November 2023 at [place], revealed no evidence of laryngeal penetration or aspiration. UNEMPLOYMENT SPECIALIST report unavailable for review. Reports several episodes [...] or emesis Colonoscopy two years ago at [facility]. No polyps. Negative fh colon cancer or [...] tablet Take by mouth. blood sugar diagnostic (Ruci.cnuch Verio test strips) test strip 1 Each by Other route. blood-glucose meter,continuous (DexSpace-Time Insight G7 Educational Aid) misc by Other route. carbidopa-levodopa CR (SINEMET [...] Replace Required Details, Route to Pharmacy Electronically, [facility]/pharmacy #[id number], P... (Patient not taking: Reported on [...] follow-ups on file. Gastroenterology and Hepatology Practice [facility] [email or web address] [phone] [place] [address] Roque Granados MD PROGRESS NOTE Subjective Patient [...] on 09/14/2019 10:46 AM. Workstation Name - [id number] MEDICATIONS: Current Hospital Medications: Current Outpatient Medications: amLODIPine (NORVASC) 10 mg tablet, Take by mouth., Disp: , Rfl: blood sugar diagnostic (OneTouch Verio test strips) test strip, 1 Each by Other route., Disp: , Rfl: blood-glucose meter,continuous (Dexcom G7 Educational Aid) misc, by Other route., Disp: , Rfl: [...] Replace Required Details, Route to Pharmacy Electronically, [facility]/pharmacy #[id number], P... (Patient not taking: Reported on 08/31/2024), [...] Team (Late st Contact Info) Description 01/12/2025 10:10 AM EDT Office Visit Gastroenterology - [address] [phone] Roque Granados MD [address] [place] [address] documented as of this encounter Visit Diagnoses Diagnosis Generalized abdominal pain- Primary Abdominal pain, generalized Constipation, unspecified constipation type documented in this encounter Care Teams Finance Advisor Relationship Specialty Start Date End Date Kade Mcclellan MD [address] [address] PCP - General 08/12/23 documented as of this encounter
--- OUTSIDE RECORDS SUMMARY | 2024-11-16 09:15 | XMS_ITS | Encounter Summary ---
Author Organization [facility] Address [address] [place] [address] Care Team Providers Care Arch Cushion Press Operator Name Role Phone Kade Mcclellan MD Primary Care Provider Reason for Visit * Reason Onset Date Comments Disability Paperwork 09/20/2020 Encounter Details Date Type Department Care Team (Late st Contact Info) Description 09/20/2020 Telephone [facility] [address] [place] [address] [place] Bailey MD [address] [place] [phone] Disability Paperwork Social History Tobacco Use Types [...] Info) Description 02/07/2025 10:00 AM EDT Follow-Up [facility] [address] [place], [place] [phone] Abner Alonso MD PhD [address] [place] [address] documented as of this encounter Visit Diagnoses Not on filedocumented in this encounter Care Teams Arch Cushion Press Operator Relationship Specialty Start Date End Date [place] [address] PCP - General 11/06/23 documented as of this encounter
--- OUTSIDE RECORDS SUMMARY | 2024-11-16 09:15 | XMS_ITS | Referral Summary ---
Author Organization [facility] Address [address] [place] [address] Care Team Providers Care Forest Fire Equipment Operator Name Role Phone Kade Mcclellan MD Primary Care Provider [phone] Allergies Active Allergy Reactions Criticality Noted Date [...] Take by mouth. Activ e blood-glucose sensor (Ariel Way G7 Sensor) device 1 each. Change sensor [...] Info) Description 02/07/2025 10:00 AM EDT Follow-Up [facility] Neurosurgery Clinic [address] [place] [address] Abner Alonso MD PhD [address] [place] [address] Insurance [facility] KEILA MURCIA [id number] Care Teams Forest Fire Equipment Operator Relationship Specialty Start Date End Date [place] [address] PCP - General 11/06/23
--- OUTSIDE RECORDS SUMMARY | 2024-11-16 09:15 | XMS_ITS | Clinical Summary ---
Author Organization [facility] 299 [facility] Address 299 [facility] [place] [address] Phone Care Team Providers Care Destination Specialist Name Role Phone Kade Mcclellan MD Primary Care Provider Allergies Active Allergy Reactions Criticality Noted Date Comments Atorvastatin 08/12/2023 Medications pravastatin (PRAVACHOL) 20 mg tablet See Instructions, 1 tab PO every other day at bedtime to replace simvastatin, # 45 tablet, Refills 1, Tot. Refills 1, Maintenance, 08/11/23 10:52:00 EST, Instructions Replace Required Details, Route to Pharmacy Electronically, [facility]/pharmacy #[id number], P... 3 Active amLODIPine (NORVASC) 10 mg tablet Take by mouth. 0 Active carbidopa-levodo pa CR (SINEMET CR) 25-100 mg per CR tablet 4 (four) times a day. 3 Active clonazePAM (KlonoPIN) 2 mg tablet PLEASE SEE ATTACHED FOR DETAILED DIRECTIONS 3 Active blood-glucose meter,continuous (Dexcom G7 Display Maker) misc by Other route. 3 Active dulaglutide (Trulicity) 3 mg/0.5 mL pen injector injection Inject 3 mg into the skin. 3 Active empagliflozin (Jardiance) 25 mg tablet TAKE 1 TABLET BY MOUTH EVERY DAY IN THE MORNING FOR 90 DAYS 3 Active blood sugar diagnostic (OneTouch Verio test strips) test strip 1 Each by Other route. 3 Active ketorolac (ACULAR) 0.4 % ophthalmic solution apply 1 Drop to the eye. 1 Active magnesium oxide (MAG-OX) 400 mg (241.3 elemental magnesium) tablet Take 1 tablet (400 mg total) by mouth 1 (one) time each day. 3 Active melatonin 10 mg tablet Take 10 mg by mouth. 2 Active metFORMIN (GLUCOPHAGE) 1,000 mg tablet Take by mouth. 8 Active omeprazole (PriLOSEC) [address] capsule Take by mouth. 0 Active QUEtiapine (SEROquel) 25 mg tablet TAKE 2 TABLETS BY MOUTH DAILY AT BEDTIME FOR 90 DAYS 0 Active riboflavin (VITAMIN B2) 400 mg tablet TAKE 1 TABLET ORALLY DAILY FOR 30 DAYS IN AM 3 Active SUMAtriptan (IMITREX) 100 mg tablet Take 1 Tablet by mouth. 2 Active valsartan-hydroC HLOROthiazide (DIOVAN-HCT) 160-25 mg per tablet Take 1 tablet by mouth 1 (one) time each day. 0 Active polyethylene glycol 3350 (GLYCOLAX ORAL) Take 17 g by mouth daily. Active semaglutide (Ozempic) 2 mg/dose (8 mg/3 mL) injection pen Inject 2 mg under the skin every 7 (seven) days. Active ezetimibe (ZETIA) 10 mg tablet Take 1 tablet (10 mg total) by mouth 1 (one) time each day. Active polyethylene glycol (MIRALAX) 17 gram packetIndication s:Generalized abdominal pain,Constipatio n, unspecified constipation type Take 17 g by mouth 1 (one) time each day. 510 g 11 5 026 Active Active Problems Problem Noted Date Diagnosed Date Stenosis of right carotid artery 08/31/2024 Abnormal finding on MRI of brain 08/14/2023 Overview (08/19/2024): Last Assessment & Plan: Mr. Mars returns after further imaging studies been performed. His exam is the same. He had a CTA of the head with contrast at [facility] on 08/19/2023 which showed 50% stenosis of [...] to next labs. Will discuss results through [place] Parkinson disease 01/10/2023 Diabetes 08/23/2020 Migraine headache 08/23/2020 Serrated polyp of colon 01/21/2018 Overview (08/19/2024): Repeat colonoscopy in 2020 Serrated polyp of colon 01/21/2018 Overview (08/31/2024): Repeat colonoscopy in 2020 HLD (hyperlipidemia) 03/10/2006 HTN (hypertension) 03/10/2006 Encounters Date Type Department Care Team Description 10/19/2024 9:00 AM EST Office Visit Gastroenterology - 299 [address] [facility] [address] [place] [address] Roque Granados MD Generalized abdominal pain (Primary Dx); Constipation, unspecified constipation type 09/27/2024 Telephone Gastroenterology - [address] [place] [address] [address] [place] [phone] Medina Lynn MA LMOM TO BOOK F/U 09/21/2024 Lab Requisition [facility] - Main Lab 299 [facility] [place] [phone] Roque Granados MD Esophagitis, unspecified without bleeding 08/31/2024 1:40 PM EST Office Visit Gastroenterology - [address] [place] [phone] Tracey Castellanos PA Gastroesophageal reflux disease, unspecified [...] on file Sexual Orientation Not on file Obstetrics History Last Filed [...] Office Visit Gastroenterology - [address] [place] [phone] Roque Granados MD [address] [place] [address] Health Maintenance Due Date Last Done Comments Diabetes: Annual Foot Exam 1973 Diabetes: Annual Retina Eye Exam 1973 Zoster Vaccines (1 of 2) 2013 Pneumococcal Vaccine: 50+ Years (2 of 2 - PCV) 11/13/2022 11/13/2021 Pneumococcal Vaccine: Pediatrics (0 to 5 Years) [...] patient's age to complete this topic Meningococcal B Vacine Aged Out No lo nger eligible based on patient's age to complete [...] PM EST) Anatomical Region Laterality Modality Endoscopy us Historical Provider GI~PROCEDURE ORDERABLES F inal Result * Tissue Exam (09/20/2024) Final Diagnosis Esophagus, biopsy: Esophageal squamous mucosa with patchy increase in intraepithelial lymphocytes and focal spongiosis; no intraepithelial eosinophils identified. 09/23/2024 8:58 AM EST [facility] ([facility]) [facility] Clinical Information Dysphagia Finding:R/O eosinophilic esophagitis 09/23/2024 8:58 AM EST [facility] ([facility]) [facility] Gross Description A. Esophagus, esophagus biopsy: Labeled esophagus R/O eosinophilic esophagitis . Received in formalin are five soft to friable weight tissue fragments measuring approximately 0.25 cm in greatest diameter, which are wrapped in paper and submitted in toto in one cassette, five pieces, multiple levels. TS 09/23/2024 8:[address] [facility] Disclaimer Unless otherwise specified, all tissue is 10% NB formalin fixed and paraffin embedded. 09/23/2024 8:[address] [facility] Tissue Esophageal structure / Unknown 09/20/2024 09/21/2024 6:49 AM EST Roque Granados MD LAB PATHOLOGY ORDERABLES Final Result [facility]) [facility] [address] [place] [address], * Annual BMP Blood Test (06/25/2023) Annual BMP Blood Test abstracted Historical Provider HEALTH MAINTENANCE Final Result * Hemoglobin A1c (06/25/2023) Hemoglobin A1C 0.0 % Comment:no interpretation, a bstracted Blood Venous blood specimen / Unknown Historical Provider LAB BLOOD ORDERABLES Sandi l Result from Last 3 Months or Most Recently Relevant to Health Maintenance Insurance [facility] Member Subscriber Plan / Payer (Ef fective 2022-Present) Name:Hu Mars Relation to Subscriber:Self Name:Hu Mars Payer ID:[id number] Group ID:[id number] Type:Not on file Address: [place] [address] [place]A MURCIA [id number] Care Teams Destination Specialist Relationship Specialty Start Date End Date Kade Mcclellan MD [facility] [address] [place] [address] PCP - General 08/12/23
--- OUTSIDE RECORDS SUMMARY | 2024-11-16 09:15 | XMS_ITS | Encounter Summary ---
Author Organization [facility] Address [address] [place] [address] Care Team Providers Care Mix Crusher Operator Name Role Phone Kade Mcclellan MD Primary Care Provider Reason for Visit * Reason Onset Date Comments Paperwork for a claim 09/07/2020 Encounter Details Date Type Department Care Team (Late st Contact Info) Description 09/07/2020 Telephone [facility]rology [facility] [address] [place] [phone] [place] Bailey MD [address] [place] [address] Paperwork for a claim Social History Tobacco [...] 1:45 PM EST Re-faxed clinical notes to [phone] * Telephone Encounter - Violet Duke LPN - 09/14/2020 11:39 AM EST Stef Camargo, Pt calling about the disability paperwork. He said apparently the Ins Co didn't get it. Fax number is [phone]. Case number is [id number]. putty and patch worker is Zander Ma Phone is [phone]. Thanks Aletha * Telephone Encounter - ISAAC Blount - 09/07/2020 3:30 PM EST We received the fax from [facility] requesting a copy of the last clinical [...] out for a claim. Pt.'s number is [phone]. Thanks Aletha documented in this encounter Plan of Treatment Upcoming Encounters Date Type Department Care Team (Late st Contact Info) Description 02/07/2025 10:00 AM EDT Follow-Up [facility] Neurosurgery [facility] [address] [place] [address] Abner Alonso MD PhD [address] [place] [address] documented as of this encounter Visit Diagnoses Not on filedocumented in this encounter Care Teams Mix Crusher Operator Relationship Specialty Start Date End Date [place] [address] PCP - General 11/06/23 documented as of this encounter
--- OUTSIDE RECORDS SUMMARY | 2024-11-16 09:15 | XMS_ITS | Clinical Summary ---
Author Organization [facility] Address [address] [place] [address] Care Team Providers Care Clay Processing Factory Worker Name Role Phone Kade Mcclellan MD Primary Care Provider [phone] Allergies Active Allergy Reactions Criticality Noted Date [...] Take by mouth. Activ e blood-glucose sensor (Intelligent Mobile Support G7 Sensor) device 1 each. Change sensor [...] Info) Description 02/07/2025 10:00 AM EDT Follow-Up [facility] Neurosurgery Clinic [address] [place] [address] Abner Alonso MD PhD [address] [facility], [place] [phone] Health Maintenance Due Date Last Done Comments Cologuard 1963 Colon Cancer Screening 1963 Colonoscopy 1963 FOBT / Fit Test 1963 HIV Screening 1963 Hepatitis C Screening 1963 Sigmoidoscopy [address] Lung Cancer Screening (Baseline) 2013 Zoster Vaccines (1 of 2) 2013 Pneumococcal Vaccine: 50+ Years (2 of 2 - PCV) 11/13/2022 11/13/2021 Pneumococcal Vaccine: Pediatric (0-5 Years) and At-Risk Patients (6-50 Years) (2 of 2 - PCV) 11/13/2022 [...] patient's age to complete this topic Insurance [facility] Care Teams Clay Processing Factory Worker Relationship Specialty Start Date End Date [place] [address] PCP - General 11/06/23
--- OUTSIDE RECORDS SUMMARY | 2024-11-16 09:15 | XMS_ITS | Clinical Summary ---
Author Organization [facility] Address [address] [place] [address] Care Team Providers Care Filler Picker Name Role Phone Unavailable Primary Care Provider [...]
--- OUTSIDE RECORDS SUMMARY | 2024-11-16 09:15 | XMS_ITS | Encounter Summary ---
Author Organization [facility] Address [address] [place] [phone] Care Team Providers Care Perinatal Educator Name Role Phone Kade Mcclellan MD Primary Care Provider [phone] Encounter Details Date Type Department Care Team (Late Contact Info) Description 09/21/2024 Lab Requisition [facility] - Main Lab 299 [facility] [place] [phone] Roque Granados MD [address] [address] Esophagitis, unspecified without bleeding Social History Tobacco [...] Care Team (Late Contact Info) Description 01/12/2025 10:10 AM EDT Office Visit Gastroenterology - 299 [address] [facility] [address] [place] [phone] Roque Granados MD [address] [phone] documented as of this encounter Procedures Procedure Name Priority Date/Time Associated Diagnosis Comments TISSUE EXAM Routine 09/20/2024 Esophagitis, unspecified without bleeding documented in this encounter Results * Tissue Exam (09/20/2024) Final Diagnosis Esophagus, biopsy: Esophageal squamous mucosa with patchy increase in intraepithelial lymphocytes and focal spongiosis; no intraepithelial eosinophils identified. 09/23/2024 8:58 AM EST [facility] Clinical Information Dysphagia Finding:R/O eosinophilic esophagitis 09/23/2024 8:58 AM EST [facility] Gross Description A. Esophagus, esophagus biopsy: Labeled esophagus R/O eosinophilic esophagitis . Received in formalin are five soft to friable weight tissue fragments measuring approximately 0.25 cm in greatest diameter, which are wrapped in paper and submitted in toto in one cassette, five pieces, multiple levels. TS 09/23/2024 8:58 AM [facility] Disclaimer Unless otherwise specified, all tissue is 10% NB formalin fixed and paraffin embedded. 09/23/2024 8:58 AM [facility] Tissue Esophageal structure / Unknown 09/20/2024 09/21/2024 6:49 AM EST Roque Granados MD LAB PATHOLOGY ORDERABLES Final Result [facility] [address] [place] [address], documented in this encounter Visit Diagnoses Diagnosis Esophagitis, unspecified without bleeding documented in this encounter Care Teams Perinatal Educator Relationship Specialty Start Date End Date Kade Mcclellan MD [address] [address] PCP - General 08/12/23 documented as of this encounter
== END 2024-11-16 09:24 | disposition home or self-care (01) ==
PROVIDERS: PCP Internal Medicine Sports Medicine; Visit Provider Psychiatry & Neurology Neurology
DX: G51.31 Clonic hemifacial spasm, right (principal); G24.5 Blepharospasm
CPT/HCPCS: 64612

== ENCOUNTER → 2024-11-16 08:46 | Outpatient (BNVA) | payer OTHER, SELFPAY | PROVIDERS: PCP Internal Medicine Sports Medicine; Visit Provider Psychiatry & Neurology Neurology | DX: G24.5 Blepharospasm (principal); G51.31 Clonic hemifacial spasm, right | CPT/HCPCS: 64612; 99211; J0585 ==

== ENCOUNTER 2025-02-22 07:37 | Outpatient (AMB) | payer OTHER, SELFPAY ==
--- OUTSIDE RECORDS SUMMARY | 2025-02-22 07:39 | XMS_ITS | Clinical Summary ---
Author Organization [facility] 299 [facility] Address [address] [place] [address] Phone Care Team Providers Care Assembler Name Role Phone Kade Mcclellan MD Primary Care Provider [phone] Allergies Active Allergy Reactions Criticality Noted Date Comments Atorvastatin 08/12/2023 Medications pravastatin (PRAVACHOL) 20 mg tablet See Instructions, 1 tab PO every other day at bedtime to replace simvastatin, # 45 tablet, Refills 1, Tot. Refills 1, Maintenance, 08/11/23 10:52:00 EST, Instructions Replace Required Details, Route to Pharmacy Electronically, [facility]/pharmacy #[id number], P... 3 Active amLODIPine (NORVASC) 10 mg tablet Take by mouth. 0 Active carbidopa-levodo pa CR (SINEMET CR) 25-100 mg per CR tablet 4 (four) times a day. 3 Active clonazePAM (KlonoPIN) 2 mg tablet PLEASE SEE ATTACHED FOR DETAILED DIRECTIONS 3 Active blood-glucose meter,continuous (Dexcom G7 Project Geophysicist) misc by Other route. 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 Repeat testing in 02/18 was 232. Patient has some decrease in libido and ED for years. Added total and free testosterone as well as LH and FSH to next labs. Will discuss results through [place] Parkinson disease ([facility] V24, [facility] V28) Diabetes ([facility] V24, [facility] V28) 08/23/2020 Migraine headache 08/23/2020 Serrated polyp of colon 01/21/2018 Overview (08/19/2024): Repeat colonoscopy in 2020 Serrated polyp of colon 01/21/2018 Overview (08/31/2024): Repeat colonoscopy in 2021 HLD (hyperlipidemia) 03/10/2006 HTN (hypertension) 03/10/2006 Encounters Date Type Department Care Team Description 01/12/2025 10:30 AM EDT Office Visit Gastroenterology - 299 [facility] 299 [facility] [address] [place] [address] Caitlin Dotson NP Dysphagia, unspecified type (Primary Dx); Gastroesophageal reflux disease, unspecified whether esophagitis present; Constipation, unspecified constipation type 01/12/2025 Telephone Gastroenterology - [place] 175 [facility] 175 [facility] [address] [place] [address] Ivonne Winslow MA from Last 3 Months Immunizations Name Administration [...] - Inhaled Oxygen Concentration - - Weight 91.6 kg (202 lb) 01/12/2025 9:47 AM EDT Height 177.8 cm (5' 10 ) 01/12/2025 9:47 AM EDT Body Mass Index 28.98 01/12/2025 9:47 AM EDT Plan of Treatment Health Maintenance Due Date Last Done Comments Diabetes: Annual Foot Exam 1973 Diabetes: Annual Retina Eye Exam 1973 Zoster Vaccines (1 of 2) 2013 Pneumococcal Vaccine: 50+ Years (2 of 2 - PCV) 11/13/2022 11/13/2021 Pneumococcal Vaccine: Pediatrics (0 to 5 Years) and At-Risk Patients (6 to 64 Years) (2 of 2 - PCV) 11/13/2022 11/13/2021 RSV Immunization Adult Patients (1 - Risk 60-74 years 1-dose series) [...] age to complete this topic Meningococcal B Vaccine Aged Out No l onger eligible based on patient's age to complete this topic RSV Immunization Patients Under 20 months Aged Out No longer eligible based on patient's age to complete this topic Varicella Vaccines Aged Out No longer eligible based on patient's age to complete this topic Procedures Procedure Name Priority Date/Time Associated Diagnosis Comments ANNUAL BMP BLOOD TEST Routine 06/25/2023 HEMOGLOBIN A1C Routine 06/25/2023 from Last 3 Months or Most Recently Relevant to Health Maintenance Results * Annual BMP Blood Test (06/25/2023) Annual BMP Blood Test abstracted Historical Provider HEALTH MAINTENANCE Final Result * Hemoglobin A1c (06/25/2023) Hemoglobin A1C 0.0 % Comment:no interpretation, a bstracted Blood Venous blood specimen / Unknown Historical Provider LAB BLOOD ORDERABLES Sandi l Result from Last 3 Months or Most Recently Relevant to Health Maintenance Insurance [facility] Member Subscriber Plan / Payer (Ef fective 2022-Present) Name:Hu Mars Relation to Subscriber:Self Name:Hu Mars Payer ID:[id number] Group ID:[id number] Type:Not on file Address: [facility] [place]CIA [id number] Care Teams Assembler Relationship Specialty Start Date End Date Kade Mcclellan MD [address] [place] [address] [place] JASSO [address] PCP - General 08/12/23
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
[2025-02-22 08:03] VITALS: BP 104/78; BMI 29.4
== END 2025-02-22 09:10 | disposition home or self-care (01) ==
LOC: HO.HSMS 07:38
PROVIDERS: Absent Provider Nurse Practitioner Family; PCP Internal Medicine Sports Medicine; Visit Provider Nurse Practitioner Family
DX: G20.A1 Parkinson's disease without dyskinesia, without mention of fluctuations (principal); R20.2 Paresthesia of skin; M48.02 Spinal stenosis, cervical region; G43.909 Migraine, unspecified, not intractable, without status migrainosus; R90.89 Other abnormal findings on diagnostic imaging of central nervous system; G47.52 REM sleep behavior disorder; R41.89 Other symptoms and signs involving cognitive functions and awareness
CPT/HCPCS: 99214; G2211

== ENCOUNTER → 2025-02-22 07:37 | Outpatient (BNVA) | payer OTHER, SELFPAY | PROVIDERS: Absent Provider Nurse Practitioner Family; PCP Internal Medicine Sports Medicine; Visit Provider Nurse Practitioner Family | DX: G20.A1 Parkinson's disease without dyskinesia, without mention of fluctuations (principal); G43.909 Migraine, unspecified, not intractable, without status migrainosus; G47.52 REM sleep behavior disorder; R20.2 Paresthesia of skin; M48.02 Spinal stenosis, cervical region; R90.89 Other abnormal findings on diagnostic imaging of central nervous system; F09 Unspecified mental disorder due to known physiological condition | CPT/HCPCS: 99212 ==

== ENCOUNTER 2025-03-04 09:43 | Outpatient (AMB) | payer OTHER, SELFPAY ==
[2025-03-04 09:52] VITALS: BP 106/78; PULSE 92; O2SAT 93; BMI 29.4
--- NOTE | 2025-03-04 09:52 | MHC.OFFVIS ---
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 Accompanied by: Spouse Allergies atorvastatin [From Lipitor] Allergy (Mild, Verified 03/04/25 09:53) pain Medication List - Last Reconciled 03/04/25 by Taryn Hernandez MD amlodipine 10 mg PO DAILY carbidopa-levodopa 61.25-245 mg ER (Rytary) 1 cap PO QID 90 days carboxymethylcellulose sodium (Refresh Contacts eye drops) 1 drp ophthalmic (eye) BID clonazepam 2 mg PO BEDTIME 90 days dulaglutide (Trulicity) 4.5 mg subcut QWEEK empagliflozin (Jardiance) 25 mg PO DAILY ezetimibe 10 mg PO DAILY glipizide ER 5 mg PO DAILY lancets (OneTouch Delica Plus Lancet) As directed magnesium oxide 400 mg PO DAILY 90 days melatonin 10 mg PO DAILY PRN metformin 1,000 mg PO .twice a day omeprazole 40 mg PO DAILY onabotulinumtoxinA (Botox) 100 units IM ONCE 12 weeks polyethylene glycol 3350 (Miralax) 17 grams PO DAILY PRN 30 days quetiapine 50 mg (2 x 25 mg) PO BEDTIME 90 days riboflavin (vitamin B2) 400 mg PO DAILY 90 days semaglutide (Ozempic) 1 mg subcut QWEEK sumatriptan succinate take 1 tab at onset of headache; if no relief, may repeat 1 tab after at least 2 hrs; max = 2 tabs/24 hrs orally PRN; 30 days valsartan-hydrochlorothiazide 160-25 mg 1 tab PO DAILY HPI Comments Details: 59y/o male comes for treatment of her blepherospasm , hemifacial spasm with botox Effectiveness of last two botox: Change in intensity of spasms-decreased Change in frequency of spasms-decreased Changes in quality of life-improved Have at least three months elapsed since last treatment (Last botox date - frequency of injections) yes Botulinum toxin type A Lot no [id number] 1 Exp 01/2027 was diluted with 1 cc of normal saline at a concentration of 10units in 0.1 cc. Side effects were discussed and an informed consent was obtained. Muscles injected Right Lateral canthus - 15 units Right Lateral Lower eyelid-15units Right Medial lower eyelid- 5 units Right Nasolabial fold 5 units Right zygomaticus 10 units right lower lip 5 units Total used 55 units discarded 45 units [facility] Medical History Rapid eye movements from side to side GERD (gastroesophageal reflux disease) Diverticulosis HTN (hypertension) Parkinson disease Diabetes Surgical History H/O elbow surgery H/O hernia repair History of vasectomy History of carpal tunnel release Family History Father Cancer Mother Hyperlipidemia Diabetes Social History Alcohol intake: never Patient Tobacco Use Status: Former Tobacco user Tobacco use type: Cigar Cigarettes Per Day: 1 Physical Exam Vital Signs: Last Vital Signs Pulse 92 03/04/25 09:52 BP 106/78 03/04/25 09:52 Pulse Ox 93 03/04/25 09:52 Oxygen Delivery Method Room Air 03/04/25 09:52 BMI result Body Mass Index 29.4 Neuro Other: Right Hemifacial spasm Office Procedures Botulinum toxin Injection 17241 - Facial Nerve Procedure code (CPT) selection complete Office Meds onabotulinumtoxinA 100 unit solution for injection Performing Provider: Taryn Hernandez MD Performing Location: [facility] Administered by: Taryn Hernandez MD on 03/04/25 10:27 Dose Route Admin Location Dispensed Lot Number Expiration Date [facility] [employer] 55 unit subcut 100 units [id number] [employer] 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 He will call with any side effects Orders: Orders AMB Botulinum toxin Injection Today G51.31 - Clonic hemifacial spasm, right Medications: New onabotulinumtoxinA 100 units subcut ONCE 1 ea 0RF hemifacial spasm G51.31 - Clonic hemifacial spasm, right Coding Level of Care Code Est Pt Level 1 (83746) Diagnoses Blepharospasm of right eye G24.5 CPT Codes Botox Injection - Botox 2: 60390 - Facial Nerve ([id number])
--- OUTSIDE RECORDS SUMMARY | 2025-03-04 10:19 | XMS_ITS | Clinical Summary ---
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 Refills 1, Maintenance, 08/11/23 10:52:00 EST, Instructions Replace Required Details, Route to Pharmacy Electronically, [facility]/pharmacy #[id number], P... 3 Active amLODIPine (NORVASC) 10 mg tablet Take by mouth. 0 Active carbidopa-levodo pa CR (SINEMET CR) 25-100 mg per CR tablet 4 (four) times a day. 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 3 Active dulaglutide [...] CTA of the head with contrast at [facility] on 08/19/2023 which showed 50% stenosis of [...] type II, controlled, with peripheral vascular disorder ([facility] V24, [facility] V28) 08/12/2023 Elevated LFTs 08/12/2023 Hallucinosis ([facility] V24, [facility] V28) 08/12/20 Lipoma 08/12/2023 Nephrolithiasis 08/12/2023 REM sleep behavior disorder 08/12/2023 Hypotestosteronemia in male 08/11/2023 Major depressive disorder, s essence episode, moderate ([facility] V24, [facility] V28) 08/11/2023 Right groin pain 08/11/2023 Slurred speech 08/11/2023 Low testosterone 04/14/2023 Overview (08/19/2024): Last Assessment & Plan: Slightly low total testosterone 273 noted in 11/21 by PCP. Repeat testing in 02/18 was 232. Patient has some decrease in libido and ED for years. Added total and free testosterone as well as LH and FSH to next labs. Will discuss results through [facility] Parkinson disease ([facility]/HCC V24, [facility] V28) Diabetes ([facility] V24, [facility] V28) 08/23/2020 Migraine headache 08/23/2020 Serrated polyp of colon 01/21/2018 Overview (08/19/2024): Repeat colonoscopy in 2020 Serrated polyp of colon 01/21/2018 Overview (08/31/2024): Repeat colonoscopy in 2021 HLD (hyperlipidemia) 03/10/2006 HTN (hypertension) 03/10/2006 Encounters Date Type Department Care Team Description 01/12/2025 10:30 AM EDT Office Visit Gastroenterology - [address] [facility] [address] [facility] [address] [place] [address] Caitlin Dotson NP Dysphagia, unspecified type (Primary Dx); Gastroesophageal reflux disease, unspecified whether esophagitis present; Constipation, unspecified constipation type 01/12/2025 Telephone Gastroenterology - [place] [address] [facility] [address] [facility] [address] [place] [address] Ivonne Winslow MA from Last [...] Most Recently Relevant to Health Maintenance Insurance [facility] Member Subscriber Plan / Payer (Ef fective 2022-Present) Name:Hu Mars Relation to Subscriber:Self Name:Hu Mars Payer ID:[id number] Group ID:[id number] Type:Not on file Address: [address] [facility] [place] [id number] Care Teams [employer]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
== END 2025-03-04 10:13 | disposition home or self-care (01) ==
LOC: HO.HSMS 09:44
PROVIDERS: PCP Internal Medicine Sports Medicine; Visit Provider Psychiatry & Neurology Neurology
DX: G51.31 Clonic hemifacial spasm, right (principal); G24.5 Blepharospasm
CPT/HCPCS: 64612

== ENCOUNTER → 2025-03-04 09:43 | Outpatient (BNVA) | payer OTHER, SELFPAY | PROVIDERS: PCP Internal Medicine Sports Medicine; Visit Provider Psychiatry & Neurology Neurology | DX: G51.31 Clonic hemifacial spasm, right (principal) | CPT/HCPCS: 64612; 99211; J0585 ==

== ENCOUNTER 2025-06-07 09:38 | Outpatient (AMB) | payer OTHER, SELFPAY ==
--- NOTE | 2025-06-07 09:48 | MHC.OFFVIS ---
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 Accompanied by: Spouse Allergies atorvastatin (From Lipitor) Allergy (Mild, Verified 06/07/25 09:48) pain Medication List - Last Reconciled 06/07/25 by Taryn Hernandez MD amlodipine 10 mg PO DAILY carbidopa-levodopa 61.25-245 mg ER (Rytary) 1 cap PO QID 90 days carboxymethylcellulose sodium (Refresh Contacts eye drops) 1 drp ophthalmic (eye) BID clonazepam 2 mg PO BEDTIME 90 days dulaglutide (Trulicity) 4.5 mg subcut QWEEK empagliflozin (Jardiance) 25 mg PO DAILY ezetimibe 10 mg PO DAILY glipizide ER 5 mg PO DAILY lancets (OneTouch Delica Plus Lancet) As directed magnesium oxide 400 mg PO DAILY 90 days melatonin 10 mg PO DAILY PRN metformin 1,000 mg PO .twice a day omeprazole 40 mg PO DAILY onabotulinumtoxinA (Botox) 100 units IM ONCE 12 weeks polyethylene glycol 3350 (Miralax) 17 grams PO DAILY PRN 30 days quetiapine 50 mg (2 x 25 mg) PO BEDTIME 90 days riboflavin (vitamin B2) 400 mg PO DAILY 90 days sumatriptan succinate take 1 tab at onset of headache; if no relief, may repeat 1 tab after at least 2 hrs; max = 2 tabs/24 hrs orally PRN; 30 days valsartan-hydrochlorothiazide 160-25 mg 1 tab PO DAILY HPI Comments Details: 59y/o male comes for treatment of her blepherospasm , hemifacial spasm with botox Effectiveness of last two botox: Change in intensity of spasms-decreased Change in frequency of spasms-decreased Changes in quality of life-improved Have at least three months elapsed since last treatment (Last botox date - frequency of injections) yes Botulinum toxin type A Lot no [id number] Exp 06/2027 was diluted with 1 cc of normal saline at a concentration of 10units in 0.1 cc. Side effects were discussed and an informed consent was obtained. Muscles injected Right Lateral canthus - 15 units Right Lateral Lower eyelid-15units Right Medial lower eyelid- 5 units Right Nasolabial fold 5 units Right zygomaticus 10 units right lower lip 5 units Total used 55 units discarded 45 units PFSH Medical History Rapid eye movements from side to side GERD (gastroesophageal reflux disease) Diverticulosis HTN (hypertension) Parkinson disease Diabetes Surgical History H/O elbow surgery H/O hernia repair History of vasectomy History of carpal tunnel release Family History Father Cancer Mother Hyperlipidemia Diabetes Social History Alcohol intake: never Patient Tobacco Use Status: Former Tobacco user Tobacco use type: Cigar Cigarettes Per Day: 1 Physical Exam Vital Signs: Last Vital Signs Pulse 89 06/07/25 09:49 BP 112/76 06/07/25 09:49 Pulse Ox 97 06/07/25 09:49 Oxygen Delivery Method Room Air 06/07/25 09:49 BMI result Body Mass Index 28.9 Neuro Other: Right Hemifacial spasm Office Procedures Botulinum toxin Injection 05088 - Facial Nerve Procedure code (CPT) selection complete Office Meds onabotulinumtoxinA 100 unit solution for injection Performing Provider: Taryn Hernandez MD Performing Location: [facility] Administered by: Taryn Hernandez MD on 06/07/25 12:35 Dose Route Admin Location Dispensed Lot Number Expiration Date [facility] Boiler Out 100 unit subcut 100 units [id number] ALLERGAN/BOTOX Total Dispensed Waste 100 units 0 % Comments: see hpi Assessment & Plan Assessment & Plan (1) Blepharospasm of right eye: Comment: s/p right orbital fracture- Code(s): G24.5 - Blepharospasm Category: Medical Plan Patient tolerated the procedure well. He will call with any side effects Orders: Orders AMB Botulinum toxin Injection Today G24.5 - Blepharospasm Coding Level of Care Code Est Pt Level 1 (11817) Diagnoses Blepharospasm of right eye G24.5 CPT Codes Botox Injection - Botox 2: 46192 - Facial Nerve ([id number])
[2025-06-07 09:49] VITALS: BP 112/76; PULSE 89; O2SAT 97; BMI 28.9
--- OUTSIDE RECORDS SUMMARY | 2025-06-07 11:07 | XMS_ITS | Clinical Summary ---
Author Organization [facility] Address [address] [place] [address] Phone Care Team Providers Care Boatswain'S Mate Name Role Phone Kade Mcclellan MD Primary Care Provider Allergies Active Allergy Reactions Criticality Noted Date Comments Atorvastatin Dystonia,Myalgia High 08/23/2020 Medications amLODIPine (NORVASC) 10 MG tablet Take by mouth. 03/25/20 22 Active clonazePAM (KLONOPIN) 2 MG tablet nightly at bedtime. 12/31/19 23 Active magnesium oxide (MAG-OX) 400 mg (241.3 mg elemental) tablet Take 1 tablet by mouth daily. 10/25/19 23 Active melatonin 10 mg Tab Take 10 mg by mouth nightly at bedtime as needed. 11/13/19 22 Active QUEtiapine (SEROQUEL) 25 MG tablet TAKE 2 TABLETS BY MOUTH DAILY AT BEDTIME FOR 90 DAYS 11/23/19 23 Active riboflavin, vitamin B2, 400 mg Tab TAKE 1 TABLET ORALLY DAILY FOR 30 DAYS IN AM 12/27/19 23 Active SUMAtriptan (IMITREX) 100 MG tablet Take 100 mg by mouth once as needed. 11/13/19 22 Active valsartan-hydroC HLOROthiazide (DIOVAN-HCT) 160-25 mg per tablet Take 1 tablet by mouth daily. 12/31/19 23 Active ONETOUCH VERIO METER Misc meterIndications :Type 2 diabetes mellitus with hyperglycemia, without long-term current use of insulin by Miscellaneous route as needed. To test blood glucose BID 1 each 01/11/20 23 Active blood-glucose meter,continuous (DEXCOM G7 PILOT BOAT OPERATOR) Misc by Miscellaneous route as needed. Dx E11.65 1 each 01/18/20 23 Active DEXCOM G7 PILOT BOAT OPERATOR MiscIndications: Type 2 diabetes mellitus with hyperglycemia, without long-term current use of insulin by Miscellaneous route as needed. To monitor blood glucose, dx E11.65 1 each 03/06/20 23 Active omeprazole (PRILOSEC) 40 MG capsule Take 40 mg by mouth daily. 10/10/19 24 Active sildenafiL (VIAGRA) 100 mg tablet Take 50 mg by mouth as needed. 09/15/20 23 Active BAQSIMI 3 mg/actuation Arnot 1 spray by Nasal route as needed. 08/01/20 23 Active ezetimibe (ZETIA) 10 mg tablet Take 10 mg by mouth daily. 09/15/20 23 Active REFRESH TEARS 0.5 % Drop Place 1-2 drops into each eye 4 (four) times a day. 03/28/20 24 Active DEXCOM G7 SENSOR DeviIndications: Type 2 diabetes mellitus with hyperglycemia, without long-term current use of insulin To monitor blood glucose, dx E11.65, to change the sensor every 10 days 9 each 3 07/27/20 24 Active ONETOUCH VERIO Strp stripsIndication s:Type 2 diabetes mellitus with hyperglycemia, without long-term current use of insulin 1 each by Miscellaneous route daily. 100 strip 3 10/25/19 25 Active ONETOUCH DELICA LANCETS 30 gauge MiscIndications: Type 2 diabetes mellitus with hyperglycemia, without long-term current use of insulin 1 each by Miscellaneous route daily. 100 each 3 10/25/19 25 Active metFORMIN (GLUCOPHAGE-XR) 500 MG 24 hr tabletIndication s:Type 2 diabetes mellitus with hyperglycemia, without long-term current use of insulin TAKE 2 TABLETS (1,000 MG TOTAL) BY MOUTH 2 (TWO) TIMES A DAY BEFORE MEALS. 360 tablet 2 12/08/19 25 Active carbidopa-levodo pa (RYTARY) 61.25-245 mg ER capsule Take 1 capsule by mouth 4 (four) times a day. 12/05/19 25 Active JARDIANCE 25 mg tabletIndication s:Type 2 diabetes mellitus with hyperglycemia, without long-term current use of insulin TAKE 1 TABLET BY MOUTH EVERY DAY IN THE MORNING FOR 90 DAYS 90 tablet 3 01/26/20 25 Active glipiZIDE (GLUCOTROL XL) 5 MG 24 hr tabletIndication s:Type 2 diabetes mellitus with hyperglycemia, without long-term current use of insulin Take 1 tablet (5 mg total) by mouth daily before breakfast. 90 tablet 1 04/26/20 25 Active dulaglutide (TRULICITY) 3 mg/0.5 mL subcutaneous injectionIndicat ions:Type 2 diabetes mellitus with hyperglycemia, without long-term current use of insulin Inject 0.5 mL (3 mg total) under the skin every 7 days. 2 mL 5 04/26/20 25 Active Active Problems Problem Noted Date Diagnosed Date Type 2 diabetes mellitus with peripheral neuropa thy 04/19/2024 Assessment & Plan (07/27/2024 12:08 PM EDT): Neuropathy symptoms has been stable Assessment & Plan (04/19/2024 12:32 PM EDT): Slightly decreased vibratory sensation at the great toes. Patient is complaining about random left third toe sharp pain radiating to the top of the foot-not a typical symptom of diabetes related peripheral neuropathy. Patient is scheduled to see senior underwriter for his symptom. Added vitamin B12 level to next labs. Patient will continue his current vitamin D supplements for now Low testosterone 04/14/2023 Assessment & Plan (04/14/2023 10:47 AM EDT): Slightly low total testosterone 273 noted in 11/21 by PCP. Repeat testing in 02/18 was 232. Patient has some decrease in libido and ED for years. Added total and free testosterone as well as LH and FSH to next labs. Will discuss results through [place] Parkinson disease 01/10/2023 Type 2 diabetes mellitus wit h hyperglycemia, without long-term current use of insulin 01/10/2023 Assessment & Plan (05/04/2025 2:59 PM EDT): Control is good based upon the patient's dexcom G7 download. No frequent or severe hypoglycemia. Will maintain his current regimen. Continue to work on eating healthy and being active. To call or message with any issues managing his glucose levels. Up to date with [facility]. Labs ordered today Assessment & Plan (01/27/2025 12:09 PM EDT): Control is good based upon the patient's dexcom G7 download. No frequent or severe hypoglycemia. Will maintain his current regimen. Continue to work on eating healthy and being active. To call or message with any issues managing his glucose levels. Up to date with [facility]. Labs ordered today Assessment & Plan (10/25/2024 4:47 PM EST): Control significantly improved with last A1c of 6.9% in 09/2024. Average glucose 177, GMI 7.5, in target 62% of the day. Trending up in the second part of the night to the 180 range and having some postprandial peaks to the low 200s. He had no GI issues on Trulicity 4.5 mg weekly. Was switched to Ozempic last year because of shortage of Trulicity. Since on Ozempic 2 mg weekly has been having a lot of burping. Followed by GI Dr. Granados who was recommending Reglan We discussed that side effect of Ozempic could be slow down gastric emptying and increasing the risk of GERD. Option to decrease Ozempic dose or switch back to Trulicity and may try lower dose to see how his GI issues improve or not. -After you stop his Ozempic -3 pens -will switch back to Trulicity at 3 mg weekly -Gave option to resume Lantus or add back glipizide 5 mg with breakfast. Patient chose glipizide. Rx sent -Continue current metformin and Jardiance -Follow-up with retina specialist as scheduled-please ask report to send to us. Double check with retina specialist if no contraindication to use Trulicity Assessment & Plan (07/27/2024 12:07 PM EDT): Control is good based upon the patient's dexcom G7 download. No frequent or severe hypoglycemia. Will maintain his current regimen until can review his pending labs. Continue to work on eating healthy and being active. To call or message with any issues managing his glucose levels. Up to date with [facility]htho. Labs ordered today Assessment & Plan (04/19/2024 12:29 PM EDT): Good control by Dexcom download. Last A1c slightly higher at 7.4% in 12/2023. Some higher blood sugars after breakfast and evening meal. No frequent or severe hypoglycemia but some blood sugars in the 70s overnight without symptoms. B12 level was low normal in 09/2023. Patient has been on vitamin B supplements. Urine microalbumin/creatinine normal in 09/2023. Lipids close to target as of 02/2024-labs reviewed from patient's portal. -Will increase Ozempic to 2 mg weekly. -Stop glipizide when starting the higher dose of Ozempic. -Try to decrease/water up the lunchtime juice. -Add labs to next labs by PCP in 04/2024 Assessment & Plan (01/23/2024 1:50 PM EDT): Control is reasonable/good based upon the patient's dexcom G7 download. No frequent or severe hypoglycemia. His glucose levels have improved with the use of the 4.5 mg of trulicity but they are running slightly high overall. Will increase his glipizide to taking 2- 5 mg tablets to see if this helps improve his control. Will maintain his current regimen until can review his pending labs. Continue to work on eating healthy and being active. To call or message with any issues managing his glucose levels. [facility] Labs ordered today Assessment & Plan (10/25/2023 9:51 PM EST): Improved control by last A1c of 7% in 05/2023 from 8.3% in 12/2022. Recent control is suboptimal by Dexcom G7 download with average glucose of 193. Blood sugars are rising after dinner related to snacking on carbohydrate rich food. He is using 3 mg Trulicity weekly, he has about 2-1/2 months supply of this dose. He is also on glipizide XL 10 mg twice a day, metformin 1000 mg twice a day and Jardiance 25 mg in the morning. Weight is stable. Mostly sedentary because of Parkinson's disease. Ongoing workup of slurred speech and increasing headache. No frequent or severe hypoglycemia. Plan to increase the Trulicity to 4.5 mg weekly which may help to cut back on the nighttime snacks. Patient will work on changing snacks to healthier options. Part of the snacking is out off fear of low blood sugars overnight. For this reason we will decrease the glipizide to 1 tablet in the morning and stop the p.m. dose when he increased his Trulicity. If fasting sugars are not improving, we may add basal insulin. Patient has tried insulin in the past and had no problem with injections. Will have labs today. Assessment & Plan (06/30/2023 11:06 AM EDT): Control is reasonable/good based upon the patient's dexcom G7 download. No frequent or severe hypoglycemia. He is having some mild spikes in his glucose levels after meals but then it comes back down. May need to consider increasing his trulicity to 4.5 mg a week from 3.0 mg to help with the higher readings. He and question is there a way to lower the number of medications he is taking for his diabetes. Discussed how each one works differently and in order to consider lowering the other medications we may need to consider adding insulin. Will maintain his current regimen until can review his pending labs. Continue to work on eating healthy and being active. To call or message with any issues managing his glucose levels. Up to date with [facility]. Labs ordered today Assessment & Plan (04/14/2023 10:46 AM EDT): Suboptimal control by Dexcom G7 download. Last A1c higher 8.3% in 01/19. Admits higher carb intake and less physical activity partly because of Parkinson's and some depression related to not being able to work. He has been using a lower dose of Trulicity 1.5 mg weekly for a while because of shortage of getting the 3 mg dose. We will increase the dose back to the 3 mg weekly. Advised to take his glipizide and metformin before breakfast and before the evening meal instead of bedtime. Continued Jardiance in the morning. His is trying to help him to control his carb intake. If his blood sugars are not improving with the higher dose of Trulicity we may increase it to the 4.5 mg weekly after 4 weeks. If fasting sugars remain over the 130-140 range, will add basal insulin. Reviewed symptoms, prevention and treatment of hypoglycemia. Patient to call if blood sugars below 70 or over 250 repeatedly. Assessment & Plan (01/10/2023 10:06 AM EDT): Control is reasonable based upon the patient's SMBG readings. No frequent or severe hypoglycemia. His insurance will not cover the freestyle mini sensors. He would like to try and get the dexcom G7 CGM. If his insurance doesn't cover this they will cover the one touch verio. Will send in a prescription for both to see what will be covered. Will maintain his regimen until can review his labs. Continue to work on eating healthy and being active. To call or message through the patient portal with any issues managing his glucose levels or getting testing supplies. Up to date with [facility]. Labs ordered today HTN (hypertension) 03/10/2006 HLD (hyperlipidemia) 03/10/2006 Encounters Date Type Department Care Team Description 05/02/2025 Orders Only [facility] [address] [place] [address] Amanda Alves MA Type 2 diabetes mellitus with hyperglycemia, without long-term current use of insulin 04/26/2025 10:20 AM EDT Office Visit [facility] [address] [place] [address] Diana Gleason PA-C Type 2 diabetes mellitus with hyperglycemia, without long-term current use of insulin (Primary Dx) from Last 3 Months Family History Medical History Relation Comments Cancer Father Hypertension Father Diabetes Mother COPD Sister Parkinson's disease Sister Relation Status Comments Father Mother Sister Social History Tobacco Use Types Packs/Day Years Used Date Smoking Tobacco: Some Days Cigars Smokeless Tobacco: Never Alcohol Use Standard Drinks/Week Comments Never 0 (1 standard drink = 0.6 oz pur e alcohol) Education Answer Date Recorded Are you interested in more education? Not on rajiv e 01/25/2023 Are you concerned about learning? Not on file 01/25/2023 No 01/25/2023 No 01/25/2023 Digital Access Answer Date Recorded No 02/25/2023 No 02/25/2023 Reliable internet access at home? Not on file 02/25/2023 Device with a working camera? Not on file Sex and Gender Information Value Date Recorded Sex Assigned at Not on file Legal Sex Male 12:07 PM EDT Gender Identity Not on file Sexual Orientation Not on file Last Filed Vital Signs Vital Sign Reading Time Taken Comments Blood Pressure 124/70 04/26/2025 10:17 AM EDT Pulse 95 04/26/2025 10:17 AM EDT Temperature 36.3 C (97.4 F) 01/23/2024 1:22 PM EDT Respiratory Rate - - Oxygen Saturation 99% 04/26/2025 10:17 AM EDT Inhaled Oxygen Concentration - - Weight 92.5 kg (204 lb) 04/26/2025 10:17 AM EDT Height 174 cm (5' 8.5 ) 04/26/2025 10:17 AM EDT Body Mass Index 30.56 04/26/2025 10:17 AM EDT Plan of Treatment Upcoming Encounters Date Type Department Care Team (Late st Contact Info) Description 06/21/2025 11:00 AM EDT Office Visit [facility] [address] [place] [address] Mireya Che MD [address] [place] [phone] 10/11/2025 11:20 AM EST Office Visit [facility] [address] [place] [address] Mireya Che MD [address] [place] [id number] Health Maintenance Due Date Last Done Comments DEPRESSION SCREENING 1975 HEPATITIS C SCREENING 1981 HIV ONE-TIME SCREENING (18-65 YEARS) 1981 COLOGUARD 2008 COLONOSCOPY 2008 COLORECTAL CANCER SCREENING 2008 FIT TEST 2008 FOBT 2008 SIGMOIDOSCOPY 2008 VIRTUAL COLONOSCOPY 2008 ZOSTER VACCINES (1 of 2) 2013 PNEUMOCOCCAL VACCINES (50+ years) (2 of 2 - PCV) 11/13/2022 11/13/2021 DIABETIC EYE EXAM 01/10/2023 RSV VACCINE (1 - Risk 60-74 years 1-dose series) 2023 INFLUENZA VACCINE (#1) 2025 11/18/2022, 2020 COVID-19 VACCINE (2 - season) 2025 01/02/2021 HEMOGLOBIN A1C 07/27/2025 01/25/2025, 12/29, 10/15/2023, Additional history exists BLOOD PRESSURE 10/27/2025 04/26/2025 LIPID PANEL 01/25/2026 01/25/2025 SMOKING Hx and SMOKELESS TOBACCO SCREENING 01/25/2026 01/25/2025 CREATININE LEVEL 05/01/2026 05/01/2025, , 10/24/2024, Additional history exists POTASSIUM LEVEL 05/01/2026 05/01/2025, 12/29, 10/24/2024, Additional history exists Adult Td,Tdap Booster 07/22/2031 07/22/2021, 008 HEPATITIS A VACCINES Aged Out No long er eligible based on patient's age to complete this topic HIB VACCINES Aged Out No longer eligi ble based on patient's age to complete this topic MENINGOCOCCAL VACCINES (ACWY) Aged Out No longer eligible based on patient's age to complete this topic MENINGOCOCCAL VACCINES (B) Aged Out N o longer eligible based on patient's age to complete this topic Medical Devices Not on file Procedures Procedure Name Priority Date/Time Associated Diagnosis Comments HEMOGLOBIN A1C Routine 05/01/2025 3:00 PM EDT Type 2 diabetes mellitus with hyperglycemia, without long-term current use of insulin BASIC METABOLIC PANEL Routine 05/01/2025 3:00 PM EDT Type 2 diabetes mellitus with hyperglycemia, without long-term current use of insulin ASPARTATE AMINOTRANSFERASE (AST) Routine 05/01/2025 2:59 PM EDT Type 2 diabetes mellitus with hyperglycemia, without long-term current use of insulin MICROALBUMIN/CREATININE RATIO, RANDOM URINE Routine 05/01/2025 2:59 PM EDT Type 2 diabetes mellitus with hyperglycemia, without long-term current use of insulin LIPID PANEL Routine 05/01/2025 2:59 PM EDT Type 2 diabetes mellitus with hyperglycemia, without long-term current use of insulin ALANINE AMINOTRANSFERASE (ALT) Routine 05/01/2025 2:58 PM EDT Type 2 diabetes mellitus with hyperglycemia, without long-term current use of insulin LIPID PANEL Routine 01/25/2025 11:10 AM EDT Type 2 diabetes mellitus with hyperglycemia, without long-term current use of insulin HEMOGLOBIN A1C Routine 01/25/2025 10:56 AM EDT Type 2 diabetes mellitus with hyperglycemia, without long-term current use of insulin from Last 3 Months or Most Recently Relevant to Health Maintenance Results * Hemoglobin A1c (05/01/2025 3:00 PM EDT) Only the most recent of2 resultswithin the time period is included. Blood Diana Gleason PA-C LAB BLOOD ORDERABL ES Final Result Performing Organization Address [facility] de Phone Number [address] [phone] * Basic metabolic panel (05/01/2025 3:00 PM EDT) Blood Diana Gleason PA-C LAB BLOOD ORDERABL ES Final Result Performing Organization Address [facility] Co de Phone Number [address] [address] * Aspartate aminotransferase (AST) (05/01/2025 2:59 PM EDT) Blood Diana PEDRAZA-C LAB BLOOD ORDERABL ES Final Result Performing Organization Address [facility] Co de Phone Number [address] [phone] * Microalbumin/creatinine ratio, random urine (05/01/2025 2:59 PM EDT) Urine (Urine) Diana Gleason PA-C URINE ORDERABLES F inal Result Performing Organization Address [facility] Co de Phone Number [address] [address] * Lipid panel (05/01/2025 2:59 PM EDT) Only the most recent of2 resultswithin the time period is included. Blood Diana Gleason PA-C LAB BLOOD ORDERABL ES Final Result Performing Organization Address [facility] Co de Phone Number [address] [address] * Alanine aminotransferase (ALT) (05/01/2025 2:58 PM EDT) Blood Diana Gleason PA-C LAB BLOOD ORDERABL ES Final Result Performing Organization Address [facility] Co de Phone Number [address] [phone] from Last 3 Months or Most Recently Relevant to Health Maintenance Insurance [facility] ONE CARE MEDICARE REPLACEMENT KEILA MURC[facility] MEDICARE PART A & B [facility] ONE CARE MEDICARE REPLACEMENT MEDICARE PART A & B [facility] [place] [id number] MEDICARE PART A & B Member Subscriber Plan / Payer (Ef fective 2022-) Name:Hu Mars Member ID:[id number] Relation to Subscriber:Self Name:Hu Mars Subscriber ID:[id number] Payer ID:[id number] Group ID:Not on file Type:Medicare Address: [employer] [address] [facility] CARE MEDICARE REPLACEMENT MEDICARE PART A & B [facility] CARE MEDICARE REPLACEMENT MEDICARE PART A [place] [address] [facility] ONE CARE MEDICARE REPLACEMENT MEDICARE PART A & B Care Teams Boatswain'S Mate Relationship Specialty Start Date End Date Kade Mcclellan MD [id number] [facility] [address] PCP - General 12/26/22 Additional Source Comments The information contained in this document represents components of the legal health record. It is not the complete legal health record.[facility]
--- OUTSIDE RECORDS SUMMARY | 2025-06-07 11:07 | XMS_ITS | Encounter Summary ---
Author Organization [facility] Address [address] [place] [address] Care Team Providers Care Staff Assistant Name Role Phone Kade Mcclellan MD Primary Care Provider [phone] Reason for Visit * Reason Onset Date Comments Disability Paperwork 09/20/2020 Encounter Details Date Type Department Care Team (Late st Contact Info) Description 09/20/2020 Telephone [facility] [address] [place] [address] Orlando Bailey MD [address] [place] [address] Disability Paperwork Social History Tobacco Use Types [...] documented in this encounter Plan of Treatment Not on file documented as of this encounter Visit Diagnoses Not on filedocumented in this encounter Care Teams Staff Assistant Relationship Specialty Start Date End Date [place] [address] PCP - General 11/06/23 documented as of this encounter
--- OUTSIDE RECORDS SUMMARY | 2025-06-07 11:07 | XMS_ITS | Clinical Summary ---
Author Organization [facility] Address [address] [place] [address] Care Team Providers Care Financial Aid Coordinator Name Role Phone Unavailable Primary Care Provider [...] (1 of 2) 2013 Influenza Vaccine (#1) 2025 RSV Adult > 60+ Yrs or Pregn [...]
--- OUTSIDE RECORDS SUMMARY | 2025-06-07 11:07 | XMS_ITS ---
Author Name [facility] Organization Unknown Care Team Organization Name Specialty Phone Email Start Date End Da michael [facility] 10/07/2022 024
--- OUTSIDE RECORDS SUMMARY | 2025-06-07 11:07 | XMS_ITS | Encounter Summary ---
Author Organization [facility] Address [address] [place] [address] Phone Care Team Providers Care Repairer Maintenance Building Name Role Phone Kade Mcclellan MD Primary Care Provider Encounter Details Date Type Department Care Team (Late Contact Info) Description 05/02/2025 Orders Only [facility] [address] [place] [address] Amanda Alves DE [address] [place] [address] [email or web address] Type 2 diabetes mellitus with hyperglycemia, without long-term current use of insulin Social History Tobacco Use Types Packs/Day Years [...] AM EDT Office Visit [facility] [address] [place] [address] Mireya Che MD [address] [place] [address] 10/11/2025 11:20 AM EST Office Visit [facility] [address] [place] [address] Mireya Che MD [address] [place] [address] [email or web address] documented as of this encounter Procedures Procedure [...] hyperglycemia, without long-term current use of insulin documented in this encounter Results * Hemoglobin A1c (05/01/2025 3:00 PM EDT) Blood us Diana Gleason PA-C LAB BLOOD ORDERABL ES Final Result [facility] [address] [place] [address] * Basic metabolic panel (05/01/2025 3:00 PM EDT) Blood Dianamarilu Lam Victorino PA-C LAB BLOOD ORDERABL ES Final Result Performing Organization Address [facility] Co de Phone Number [address] [address] * Aspartate aminotransferase (AST) (05/01/2025 2:59 PM EDT) Blood Diana Lam Victorino PA-C LAB BLOOD ORDERABL ES Final Result Performing Organization Address [facility] Phone Number [address] [address] * Microalbumin/creatinine ratio, random urine (05/01/2025 2:59 PM EDT) Urine (Urine) Diana Gleason PA-C URINE ORDERABLES F inal Result Performing Organization Address [facility] Phone Number [address] [address] * Lipid panel (05/01/2025 2:59 PM EDT) Blood Diana Carolekorina Gleason PA-C LAB BLOOD ORDERABL ES Final Result Performing Organization Address [facility] Co de Phone Number [address] [address] * Alanine aminotransferase (ALT) (05/01/2025 2:58 PM EDT) Blood Diana Carolekorina Gleason PA-C LAB BLOOD ORDERABL ES Final Result [facility] [address] [place] [address] documented in this encounter Visit Diagnoses Diagnosis Type 2 diabetes mellitus with hyperglycemia, without long-term current use of insulin documented in this encounter Care Teams Repairer Maintenance Building Relationship Specialty Start Date End Date Kade Mcclellan MD [address] [place] [address] PCP - General 12/26/22 documented as of this encounter Additional Source Comments The information contained in this document represents components of the legal health record. It is not the complete legal health record.[facility]
--- OUTSIDE RECORDS SUMMARY | 2025-06-07 11:07 | XMS_ITS | Encounter Summary ---
Author Organization [facility] Address [address] [place] [address] Care Team Providers Care Windows Vmware Administrator Name Role Phone Kade Mcclellan MD Primary Care Provider [phone] Reason for Visit * Reason Onset Date Comments Paperwork for a claim 09/07/2020 Encounter Details Date Type Department Care Team (Late st Contact Info) Description 09/07/2020 Telephone [facility] [address] [place] [address] Orlando Bailey MD [address] [place] [address] Paperwork for a claim Social History Tobacco [...] 10:40 AM EST Sexual Orientation Straight 11/06/2023 9 :12 PM EST documented as of this encounter Miscellaneous Notes * Telephone Encounter - ISAAC Blount - 09/14/2020 1:45 PM EST Re-faxed clinical notes to [phone] * Telephone Encounter - Violet Duke LPN - 09/14/2020 11:39 AM EST Stef Camargo, Pt calling about the disability paperwork. He said apparently the Ins Co didn't get it. Fax number is [phone]. Case number is [id number]. die out worker is Zander Ma Phone is [phone]. Thanks Aletha * Telephone Encounter - ISAAC Blount - 09/07/2020 3:30 PM EST We received the fax from [facility] requesting a copy of the last clinical [...] out for a claim. Pt.'s number is [phone]. Thanks Aletha documented in this encounter Plan of Treatment Not on file documented as of this encounter Visit Diagnoses Not on filedocumented in this encounter Care Teams Windows Vmware Administrator Relationship Specialty Start Date End [place] [address] PCP - General 11/06/23 documented as of this encounter
--- OUTSIDE RECORDS SUMMARY | 2025-06-07 11:08 | XMS_ITS | Clinical Summary ---
Author Organization [facility] Address [address] [place] [address] Care Team Providers Care Mutuel Teller Name Role Phone Kade Mcclellan MD Primary Care Provider Allergies Active Allergy Reactions Criticality Noted Date Comments Atorvastatin Dystonia 08/23/2020 Medications amLODIPine (NORVASC) 10 mg tablet Take 10 mg by mouth daily. 0 Active omeprazole (PriLOSEC) 40 mg capsule [...] mg tablet 1 mg nightly. 0 Active valsartan-hydro chlorothiazide (DIOVAN-HCT) 160-25 mg per tablet 0 Active topiramate (TOPAMAX) 25 mg tablet 25 mg daily. 0 Active Farxiga 5 mg tablet Take 1 tablet by mouth daily. 0 Active QUEtiapine (SEROquel) 25 mg tablet TAKE 1 TABLET BY MOUTH TWICE A DAY FOR 30 DAY 0 Active empagliflozin (JARDIANCE) 25 mg tablet Take 25 mg by mouth once a day. Active ezetimibe (ZETIA) 10 mg tablet Take 10 mg by mouth once a day. Active RIBOFLAVIN, VITAMIN B2, ORAL Take by mouth. Activ e blood-glucose sensor (Kiwi Crate G7 Sensor) device 1 each. Change sensor [...] mcg by mouth once a day. Active Trulicity 3 mg/0.5 mL injection dose Inject 3 mg under the skin once a week. 5 Active Rytary 23.75-95 mg capsule Take 2 capsules by mouth 4 times a day. Active Active Problems Problem Noted [...] Sign Reading Time Taken Comments Blood Pressure 102/73 01/07/2025 1:37 PM EDT Pulse 98 01/07/2025 1:37 PM EDT Temperature 36.4 C (97.5 F) 11/10/2023 9:06 AM EST Respiratory Rate 19 01/07/2025 1:37 PM EDT Oxygen Saturation 96% 01/07/2025 1:37 PM EDT Inhaled Oxygen Concentration - - Weight 101.6 kg (224 lb) 08/23/2020 1:47 PM EST Height 172.7 cm (5' 8 ) 08/23/2020 1:47 PM EST Body Mass Index 34.06 08/23/2020 1:47 PM EST Plan of Treatment Health Maintenance Due Date Last Done Comments Cologuard 1965 Colonoscopy 1965 HIV Screening 1965 Hepatitis C Screening 1963 Sigmoidoscopy [address] Lung Cancer Screening (Baseline) 2013 Zoster Vaccines (1 of 2) 2013 Pneumococcal Vaccine: 50+ Years (2 of 2 - PCV) 11/13/2022 11/13/2021 Colon Cancer Screening 06/25/2024 FOBT / Fit Test 06/25/2024 06/25/2023 Alcohol/Substance Use Screening 09/29/2024 Depression Screening and Follow-Up 09/29/2024 Social Drivers of Health Annual Screening 09/29/2024 Urine Microalbumin 10/15/2024 10/15/2023 Hemoglobin A1C 04/23/2025 10/24/2024, 12/29, 10/15/2023, Additional history exists COVID-19 Vaccine (3 - 2024- season) 2025 01/30/2021, 01/02/2021 Influenza Vaccine (#1) 2025 , 08/11/2023, 11/18/2022, Additional history exists Basic Metabolic Panel 10/24/2025 10/24/2024 , 05/15/2024, 01/23/2024, Additional history exists DTaP,Tdap,and Td Vaccines (3 - Td or Tdap) 07/22/2031 07/22/2021, 03/17/2008 RSV Vaccine (60+ years old and patients) (1 - 1-dose 75+ series) 2038 Hepatitis B Vaccines Aged Out No long er eligible based on patient's age to complete this topic Insurance [facility] Care Teams Mutuel Teller Relationship Specialty Start Date End [place] [address] PCP - General 11/06/23
== END 2025-06-07 10:39 | disposition home or self-care (01) ==
LOC: HO.HSMS 09:39
PROVIDERS: PCP Internal Medicine Sports Medicine; Visit Provider Psychiatry & Neurology Neurology
DX: G24.5 Blepharospasm (principal)
CPT/HCPCS: 64612

== ENCOUNTER → 2025-06-07 09:38 | Outpatient (BNVA) | payer OTHER, SELFPAY | PROVIDERS: PCP Internal Medicine Sports Medicine; Visit Provider Psychiatry & Neurology Neurology | DX: G24.5 Blepharospasm (principal) | CPT/HCPCS: 64612; 99211; J0585 ==

== ENCOUNTER 2025-08-24 07:42 | Outpatient (AMB) | payer OTHER, SELFPAY ==
--- OUTSIDE RECORDS SUMMARY | 2025-08-24 07:45 | XMS_ITS | Encounter Summary ---
Author Organization [facility] Address [address] [place] [address] Care Team Providers Care Head Track Coach Name Role Phone Kade Mcclellan MD Primary Care Provider Reason for Visit * Reason Onset Date Comments Paperwork for a claim 09/07/2020 Encounter Details Date Type Department Care Team (Late st Contact Info) Description 09/07/2020 Telephone [facility] [address] [place] [address] Orlando Bailey MD [address] [place] [phone] Paperwork for a claim Social History Tobacco [...] 1:45 PM EST Re-faxed clinical notes to [phone] * Telephone Encounter - Violet Duke LPN - 09/14/2020 11:39 AM EST Stef Camargo, Pt calling about the disability paperwork. He said apparently the Ins Co didn't get it. Fax number is [phone]. Case number is [id number]. production manufacturing worker is Zander Ma Phone is [phone]. Thanks Aletha * Telephone Encounter - ISAAC Blount - 09/07/2020 3:30 PM EST We received the fax from [facility] requesting a copy of the last [...] out for a claim. Pt.'s number is [phone]. Thanks Aletha documented in this encounter Plan of Treatment Not on file documented as of this encounter Visit Diagnoses Not on filedocumented in this encounter Care Teams Head Track Coach Relationship Specialty Start Date End Date [place] [address] PCP - General 11/06/23 documented as of this encounter
--- OUTSIDE RECORDS SUMMARY | 2025-08-24 07:45 | XMS_ITS | Clinical Summary ---
Author Organization [facility] Address [address] [place] [address] Care Team Providers Care Employee Benefits Specialist Name Role Phone Unavailable Primary Care Provider [...]
--- OUTSIDE RECORDS SUMMARY | 2025-08-24 07:45 | XMS_ITS | Clinical Summary ---
Author Organization [facility] Address [address] [place] [address] Phone Care Team Providers Care Air Hole Driller Name Role Phone Kade Mcclellan MD Primary Care Provider Allergies Active Allergy Reactions Criticality Noted Date Comments Atorvastatin Dystonia,Myalgia High 08/23/2020 Medications amLODIPine (NORVASC) 10 MG tablet Take by mouth. Active clonazePAM (KLONOPIN) 2 MG tablet nightly at bedtime. Active magnesium oxide (MAG-OX) 400 mg (241.3 mg elemental) tablet Take 1 tablet by mouth daily. Active melatonin 10 mg Tab Take 10 mg by mouth nightly at bedtime as needed. Active QUEtiapine (SEROQUEL) 25 MG tablet TAKE 2 TABLETS BY MOUTH DAILY AT BEDTIME FOR 90 DAYS Active riboflavin, vitamin B2, 400 mg Tab TAKE 1 TABLET ORALLY DAILY FOR 30 DAYS IN AM Active SUMAtriptan (IMITREX) 100 MG tablet Take 100 mg by mouth once as needed. Active valsartan-hydro CHLOROthiazide (DIOVAN-HCT) 160-25 mg per tablet Take 1 tablet by mouth daily. Active ONETOUCH VERIO METER Misc meterIndication s:Type 2 diabetes mellitus with hyperglycemia, without long-term current use of insulin by Miscellaneous route as needed. To test blood glucose BID 1 each 04/14/2 023 Active blood-glucose meter,continuou s (DEXCOM G7 FACE AND FILL PACKER) Misc by Miscellaneous route as needed. Dx E11.65 1 each 023 Active DEXCOM G7 FACE AND FILL PACKER MiscIndications :Type 2 diabetes mellitus with hyperglycemia, without long-term current use of insulin by Miscellaneous route as needed. To monitor blood glucose, dx E11.65 1 each 023 Active omeprazole (PRILOSEC) 40 MG capsule Take 40 mg by mouth daily. 024 Active sildenafiL (VIAGRA) 100 mg tablet Take 50 mg by mouth as needed. 023 Active BAQSIMI 3 mg/actuation [place] 1 spray by Nasal route as needed. 023 Active ezetimibe (ZETIA) 10 mg tablet Take 10 mg by mouth daily. 023 Active REFRESH TEARS 0.5 % Drop Place 1-2 drops into each eye 4 (four) times a day. 024 Active ONETOUCH VERIO Strp stripsIndicatio ns:Type 2 diabetes mellitus with hyperglycemia, without long-term current use of insulin 1 each by Miscellaneous route daily. 100 strip 3 025 Active metFORMIN (GLUCOPHAGE-XR) 500 MG 24 hr tabletIndicatio ns:Type 2 diabetes mellitus with hyperglycemia, without long-term current use of insulin TAKE 2 TABLETS (1,000 MG TOTAL) BY MOUTH 2 (TWO) TIMES A DAY BEFORE MEALS. 360 tablet 2 025 Active carbidopa-levod opa (RYTARY) 61.25-245 mg ER capsule Take 1 capsule by mouth 4 (four) times a day. 025 Active JARDIANCE 25 mg tabletIndicatio ns:Type 2 diabetes mellitus with hyperglycemia, without long-term current use of insulin TAKE 1 TABLET BY MOUTH EVERY DAY IN THE MORNING FOR 90 DAYS 90 tablet 3 025 Active glipiZIDE (GLUCOTROL XL) 5 MG 24 hr tabletIndicatio ns:Type 2 diabetes mellitus with hyperglycemia, without long-term current use of insulin Take 1 tablet (5 mg total) by mouth daily before breakfast. 90 tablet 1 025 Active dulaglutide (TRULICITY) 4.5 mg/0.5 mL subcutaneous injection Inject 0.5 mL (4.5 mg total) under the skin every 7 days. 6 mL 1 Active ONETOUCH DELICA LANCETS 30 gauge MiscIndications :Type 2 diabetes mellitus with hyperglycemia, without long-term current use of insulin 1 each by Miscellaneous route daily. 100 each 3 Active DEXCOM G7 SENSOR DeviIndications :Type 2 diabetes mellitus with hyperglycemia, without long-term current use of insulin USE TO MONITOR BLOOD SUGAR, CHANGE EVERY 10 DAYS 9 each 3 025 Active DEXCOM G7 SENSOR DeviIndications :Type 2 diabetes mellitus with hyperglycemia, without long-term current use of insulin To monitor blood glucose, dx E11.65, to change the sensor every 10 days 9 each 3 024 2024 Discontinued Active Problems Problem Noted Date Diagnosed Date [...] peripheral neuropathy. Patient is scheduled to see military pilot for his symptom. Added vitamin B12 level [...] to next labs. Will discuss results through [facility] disease 01/10/2023 Type 2 diabetes mellitus wit h hyperglycemia, without long-term current use of insulin 01/10/2023 Assessment & Plan (06/24/2025 2:23 PM EDT): Good control by last A1c of 6.7% in 04/2025. Most recent readings by Dexcom CGM download shows an average glucose of 171 with GMI of 7.4%, time in range 65%. No frequent or severe hypoglycemia. Fasting blood sugars are in the 150s and trending up after breakfast to the 180-200 range and stay in this range for the rest of the day. He remains on 3 mg Trulicity weekly with 5 mg glipizide with breakfast, Jardiance 25 mg and metformin 1000 mg twice a day. We discussed option to increase his glipizide to 10 mg with breakfast or increase his Trulicity to 4.5 mg weekly besides continuing his other medicines -He did have some hypoglycemia in the past with higher dose of glipizide. We chose increasing the Trulicity to 4.5 mg weekly. -Continue to work on carb controlled meal plan and regular exercise as tolerated. -Call with blood sugar problems -Reviewed symptoms, prevention and treatment of hypoglycemia -Call with blood sugar problems -Labs before next visit in September Assessment & Plan (05/04/2025 2:59 PM EDT): Control is good based upon the patient's dexcom G7 download. No frequent or severe hypoglycemia. Will maintain his current regimen. Continue to work on eating healthy and being active. To call or message with any issues managing his glucose levels. Up to date with Info. Labs ordered today Assessment & Plan (01/27/2025 12:09 PM EDT): Control is good based upon the patient's dexcom G7 download. No frequent or severe hypoglycemia. Will maintain his current regimen. Continue to work on eating healthy and being active. To call or message with any issues managing his glucose levels. Up to date with [facility]. Labs ordered today Assessment & Plan (10/25/2024 [...] his glucose levels. Up to date with [facility]. Labs ordered today Assessment & Plan (04/19/2024 [...] his glucose levels. Up to date with [facility]. Labs ordered today Assessment & Plan (10/25/2023 [...] his glucose levels. Up to date with [facility]. Labs ordered today Assessment & Plan (04/14/2023 [...] getting testing supplies. Up to date with [facility]. Labs ordered today HTN (hypertension) 03/10/2006 HLD (hyperlipidemia) 03/10/2006 Encounters Date Type Department Care Team Description 08/17/2025 Telephone [facility] [address] [place] [address] Sabrina Snow [place] 08/16/2025 Refill [facility] [address] [place] [address] Diana Gleason PA-C Medication Refill 06/21/2025 11:00 AM EDT Office Visit [facility] [address] [place] [address] Mireya Che MD Type 2 diabetes mellitus with hyperglycemia, without [...] Sign Reading Time Taken Comments Blood Pressure 124/78 06/21/2025 11:06 AM EDT Pulse 94 06/21/2025 11:06 AM EDT Temperature 36.3 C (97.4 F) 01/23/2024 1:22 PM EDT Respiratory Rate - - Oxygen Saturation 97% 06/21/2025 11:06 AM EDT Inhaled Oxygen Concentration - - Weight 91.4 kg (201 lb 6.4 oz) 06/21/2025 11:06 AM EDT Height 174 cm (5' 8.5 ) 06/21/2025 11:06 AM EDT Body Mass Index 30.17 06/21/2025 11:06 AM EDT Plan of Treatment Upcoming Encounters Date Type Department Care Team (Late st Contact Info) Description 10/11/2025 11:20 AM EST Office Visit [facility] [address] [place] [address] [place] [address] Mireya Che MD [address] [place] [phone] [email or web address] Health Maintenance Due Date Last Done Comments DEPRESSION SCREENING 1975 HEPATITIS C SCREENING 1981 HIV ONE-TIME SCREENING (18-65 YEARS) 1981 COLOGUARD 2008 COLONOSCOPY 2008 COLORECTAL CANCER SCREENING 2008 FIT TEST 2008 FOBT 2008 SIGMOIDOSCOPY 2008 VIRTUAL COLONOSCOPY 2008 RSV VACCINE (1 - Risk 50-74 years 1-dose series) 2013 ZOSTER VACCINES (1 of 2) 2013 PNEUMOCOCCAL VACCINES (50+ years) (2 of 2 - PCV) 11/13/2022 11/13/2021 DIABETIC EYE EXAM 01/10/2023 INFLUENZA VACCINE (#1) 2025 11/18/2022, 2020 COVID-19 VACCINE (2 - season) 2025 01/02/2021 HEMOGLOBIN A1C 07/27/2025 01/25/2025, 12/29, 10/15/2023, Additional history exists BLOOD PRESSURE 12/19/2025 06/21/2025 LIPID PANEL 01/25/2026 01/25/2025 CREATININE LEVEL 05/01/2026 05/01/2025, , 10/24/2024, Additional history exists POTASSIUM LEVEL 05/01/2026 05/01/2025, 12/29, 10/24/2024, Additional history exists SMOKING Hx and SMOKELESS TOBACCO SCREENING 06/21/2026 06/21/2025 Adult Td,Tdap Booster 07/22/2031 07/22/2021, 06/19/2 008 HEPATITIS A VACCINES Aged Out No [...] Procedure Name Priority Date/Time Associated Diagnosis Comments BASIC METABOLIC PANEL (BMP) Routine 05/01/2025 3:00 PM EDT Type 2 [...] Recently Relevant to Health Maintenance Results * Basic metabolic panel (05/01/2025 3:00 PM EDT) Blood us Diana Gleason PA-C LAB BLOOD BKR KAZ TRAN Final Result [address] [address] * (ABNORMAL) Lipid panel (01/25/2025 11:10 AM EDT) HDL 36 mg/dL [facility] Comment: Interpretation <40 mg/dL: Low HDL cholesterol (major risk factor for CHD) Greater than or equal to 60 mg/dL: High HDL cholesterol ( negative risk factor for CHD) HDL - cholesterol is affected by a number of factors, e.g. smoking, excerise, hormones, sex and age. CHOLESTEROL 156 0 - 240 mg/dL [facility] TRIGLYCERIDES 192(H) 30 - 160 mg/dL [facility] LDL 82 50 - 129 mg/dL [facility] Comment: LDL levels in terms of risk for coronary heart disease: <100 mg/dL: Optimal 100-129 mg/dL: Near or above optimal 130-159 mg/dL: Borderline high 160-189 mg/dL: High >190 mg/dL: Very High CARDIAC RISK RATIO 4.3 3.4 - 5.0 [facility] Blood 01/25/2025 11:1 0 AM EDT 01/25/2025 11:12 AM EDT us Mireya Che MD LAB BLOOD BKR ORDERABLES Final Result [address] [address] * (ABNORMAL) Hemoglobin A1c (01/25/2025 10:56 AM EDT) HEMOGLOBIN A1C 6.9(H) 4.3 - 5.8 % [facility] Blood 01/25/2025 10:5 6 AM EDT 01/25/2025 11:12 AM EDT us Diana Gleason PA-C LAB BLOOD BKR KAZ TRAN Final Result Performing Organization Address [facility] Co de Phone Number [address] [address] from Last 3 Months or Most Recently Relevant to Health Maintenance Insurance [facility] ONE CARE MEDICARE REPLACEMENT KEILA MURCIA [id number] MEDICARE PART A & B [facility] CARE MEDICARE REPLACEMENT MEDICARE PART A & B [facility] CARE MEDICARE REPLACEMENT MEDICARE PART A & B [facility] CARE MEDICARE REPLACEMENT MEDICARE PART A & B [facility] CARE MEDICARE REPLACEMENT MEDICARE PART A & [facility] [address] ONE CARE MEDICARE REPLACEMENT KEILA MURCIA [address] MEDICARE PART A & B Care Teams Air Hole Driller Relationship Specialty Start Date End Date Kade Mcclellan MD [address] [facility] [place] [address] PCP - General 12/26/22 Additional Source Comments The information contained in this document represents components of the legal health record. It is not the complete legal health record.[facility]
--- OUTSIDE RECORDS SUMMARY | 2025-08-24 07:45 | XMS_ITS | Clinical Summary ---
Author Organization [facility] Address [address] [place] [address] Care Team Providers Care Bread Supervisor Name Role Phone Kade Mcclellan MD Primary Care Provider [phone] Allergies Active Allergy Reactions Criticality Noted Date [...] Take by mouth. Activ e blood-glucose sensor (pocketfungames G7 Sensor) device 1 each. Change sensor [...] Microalbumin 10/15/2024 10/15/2023 Hemoglobin A1C 04/23/2025 10/24/2024, 04/02/2024, 10/15/2023, Additional history exists Influenza Vaccine (#1) 2025 , 08/11/2023, 11/18/2022, Additional history exists COVID-19 Vaccine (3 - 2024- season) 2025 01/30/2021, 01/02/2021 Basic Metabolic Panel 10/24/2025 10/24/2024 , 05/15/2024, 01/23/2024, Additional history exists DTaP,Tdap,and Td Vaccines (3 - Td or Tdap) 07/22/2031 07/22/2021, 03/17/2008 RSV Vaccine (60+ years old and patients) (1 - 1-dose 75+ series) 2038 Hepatitis B Vaccines Aged Out No long er eligible based on patient's age to complete this topic Insurance [facility] Care Teams Bread Supervisor Relationship Specialty Start Date End Date [place] [address] PCP - General 11/06/23
--- OUTSIDE RECORDS SUMMARY | 2025-08-24 07:45 | XMS_ITS | Clinical Summary ---
Author Organization [facility] [address] [facility] Address [address] [place] [address] Phone Care Team Providers Care Cnc Lathe Machine Operator Name Role Phone Kade Mcclellan MD Primary Care Provider [phone] Allergies Active Allergy Reactions Criticality Noted Date Comments Atorvastatin 08/12/2023 Medications pravastatin (PRAVACHOL) 20 mg tablet See Instructions, 1 tab PO every other day at bedtime to replace simvastatin, # 45 tablet, Refills 1, Tot. Refills 1, Maintenance, 08/11/23 10:52:00 EST, Instructions Replace Required Details, Route to Pharmacy Electronically, [facility]/pharmacy #[id number], P... 3 Active amLODIPine (NORVASC) 10 mg tablet Take by mouth. 0 Active carbidopa-levodo pa CR (SINEMET CR) 25-100 mg per CR tablet 4 (four) times a day. 3 Active clonazePAM (KlonoPIN) 2 mg tablet PLEASE SEE ATTACHED FOR DETAILED DIRECTIONS 3 Active blood-glucose meter,continuous (Dexcom G7 Clothespin Drier Operator) misc by Other route. 3 Active dulaglutide [...] CTA of the head with contrast at [facility] on 08/19/2023 which showed 50% stenosis [...] type II, controlled, with peripheral vascular disorder ([facility] V24, [facility] V28) 08/12/2023 Elevated LFTs 08/12/2023 Hallucinosis ([facility] V24, [facility] V28) 08/12/20 Lipoma 08/12/2023 Nephrolithiasis 08/12/2023 REM sleep behavior disorder 08/12/2023 Hypotestosteronemia in male 08/11/2023 Major depressive disorder, s essence episode, moderate ([facility] V24, [facility] V28) 08/11/2023 Right groin pain 08/11/2023 Slurred speech 08/11/2023 Low testosterone 04/14/2023 Overview (08/19/2024): Last Assessment & Plan: Slightly low total testosterone 273 noted in 11/21 by PCP. Repeat testing in 02/18 was 232. Patient has some decrease in libido and ED for years. Added total and free testosterone as well as LH and FSH to next labs. Will discuss results through [place] Parkinson disease ([facility] V24, [facility] V28) Diabetes ([facility] V24, [facility] V28) 08/23/2020 Migraine headache 08/23/2020 Serrated polyp of colon 01/21/2018 Overview (08/19/2024): Repeat colonoscopy in 2020 Serrated polyp of colon 01/21/2018 Overview (08/31/2024): Repeat colonoscopy in 2021 HLD (hyperlipidemia) 03/10/2006 HTN (hypertension) 03/10/2006 Immunizations Immunization Administration Dates Next Due Influenza trivalent, with [...] Health Maintenance Due Date Last Done Comments Colorectal Cancer Screening: Colonoscopy 1963 Diabetes: Annual Foot Exam 1973 Diabetes: Annual Retina Eye Exam 1973 RSV Immunization Adult Patients (1 - Risk 50-74 years 1-dose series) 2013 Zoster Vaccines (1 of 2) 2013 Pneumococcal Vaccine: 50+ Years (2 of 2 - PCV) 11/13/2022 11/13/2021 Cholesterol Screening (Lipid Panel) 10/29/2023 HIV Screening 10/29/2023 Hepatitis C Screening 10/29/2023 Social Influencers of Health Screening 10/29/2023 Diabetes: Blood Sugar Control Test (HGBA1C) 12/24/2023 06/25/2023 Depression Screening 09/29/2024 Diabetes: Annual Urine Albumin-Creatinine Ratio (uACR) 10/15/2024 10/15/2023 Diabetes: Annual GFR (Glomerular Filtration Rate) 10/15/2024 10/15/2023, 06/25/2023 Hypertension/CHF/CAD Annual BMP Blood Test 10/15/2024 10/15/2023, 06/25/2023 COVID-19 Vaccine (3 - 2024- season) 2025 01/30/2021, 01/02/2021 Influenza Vaccine (#1) 2025 , 08/11/2023, 11/18/2022, Additional history exists DTaP,Tdap,and Td Vaccines (3 - Td or Tdap) 07/22/2031 07/22/2021, 03/17/2008 HIB Vaccines Aged Out No longer eligi [...] Test (06/25/2023) Annual BMP Blood Test abstracted us Historical Provider HEALTH MAINTENANCE Final Result * Hemoglobin A1c (06/25/2023) Hemoglobin A1C 0.0 % Comment:no interpretation, a bstracted Blood Venous blood specimen / Unknown Historical Provider LAB BLOOD ORDERABLES Sandi l Result from Last 3 Months or Most Recently Relevant to Health Maintenance Insurance [facility] Member Subscriber Plan / Payer (Ef fective 2022-Present) Name:BELKIS NIK Relation to Subscriber:Self Name:Nik Mars Payer ID:[id number] Group ID:[id number] Type:Not on file Address: [place] [address] [address] [place] [address] Care Teams Cnc Lathe Machine Operator Relationship Specialty Start Date End Date Kade Mcclellan MD [address] [place] [address] [place] JASSO [id number] PCP - General 08/12/23
--- OUTSIDE RECORDS SUMMARY | 2025-08-24 07:45 | XMS_ITS | Encounter Summary ---
Author Organization [facility] Address [address] [place] [address] Care Team Providers Care Cryptologic Technician Technical Name Role Phone Kade Mcclellan MD Primary Care Provider [phone] Reason for Visit * Reason Onset Date Comments Disability Paperwork 09/20/2020 Encounter Details Date Type Department Care Team (Late st Contact Info) Description 09/20/2020 Telephone [facility] [address] [place] [phone] Orlando Bailey MD [address] [place] [phone] Disability Paperwork Social History Tobacco Use Types [...] on filedocumented in this encounter Care Teams Cryptologic Technician Technical Relationship Specialty Start Date End [place] [address] PCP - General 11/06/23 documented as of this encounter
--- OUTSIDE RECORDS SUMMARY | 2025-08-24 07:45 | XMS_ITS | Encounter Summary ---
Author Organization [facility] Address [address] [place] [address] Care Team Providers Care Bioinformatics Engineer Name Role Phone Kade Mcclellan MD Primary Care Provider [phone] Encounter Details Date Type Department Care Team (Late st Contact Info) Description 09/21/2024 Lab Requisition [facility] [address] [facility] [place] [address] Roque Granados MD [address] [place] [id number] Esophagitis, unspecified without bleeding Social History Tobacco [...] as of this encounter Plan of Treatment Not on file documented as of this encounter Procedures Procedure Name Priority Date/Time Associated Diagnosis Comments TISSUE EXAM Routine 09/20/2024 Esophagitis, unspecified without bleeding documented in this encounter Results * Tissue Exam (09/20/2024) Final Diagnosis Esophagus, biopsy: Esophageal squamous mucosa with patchy increase in intraepithelial lymphocytes and focal spongiosis; no intraepithelial eosinophils identified. 09/23/2024 8:58 AM EST [facility] Clinical Information Dysphagia Finding:R/O eosinophilic esophagitis 09/23/2024 8:58 AM EST [facility] Gross Description A. Esophagus, esophagus biopsy: Labeled esophagus R/O eosinophilic esophagitis . Received in formalin are five soft to friable weight tissue fragments measuring approximately 0.25 cm in greatest diameter, which are wrapped in paper and submitted in toto in one cassette, five pieces, multiple levels. TS 09/23/2024 8:58 AM EST [facility] Disclaimer Unless otherwise specified, all tissue is 10% NB formalin fixed and paraffin embedded. 09/23/2024 8:58 AM [facility] Tissue Esophageal structure / Unknown 09/20/2024 09/21/2024 6:49 AM EST Roque Granados MD LAB PATHOLOGY ORDERABLES Final Result [facility] [address] [place] [address], documented in this encounter Visit Diagnoses Diagnosis Esophagitis, unspecified without bleeding documented in this encounter Care Teams Bioinformatics Engineer Relationship Specialty Start Date End Date Kade Mcclellan MD [address] [place] [id number] PCP - General 08/12/23 documented as of this encounter
[2025-08-24 08:05] VITALS: BP 100/80; PULSE 96; O2SAT 98; BMI 28.8
--- NOTE | 2025-08-24 08:05 | A.OFFVIS_ITS ---
Vital Signs 08/24/25 08:05 Height 5 ft 10 in Weight 201 lb BMI 28.8 BP 100/80 Blood Pressure Location Lt brachial Position Sitting Pulse 96 Pulse Source Pulse Oximeter Pulse Oximetry (%) 98 Oxygen Delivery Method Room Air Intake Visit Reasons: 6m follow up Intake Note: Patient presents follow up for Parkinson's/migraine. 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 Allergies atorvastatin (From Lipitor) Allergy (Mild, Verified 06/07/25 09:48) pain Medication List - Last Reconciled 08/24/25 by HANNAH Gomez amlodipine 10 mg PO DAILY carbidopa-levodopa 61.25-245 mg ER (Rytary) 1 cap PO QID 90 days carboxymethylcellulose sodium (Refresh Contacts eye drops) 1 drp ophthalmic (eye) BID clonazepam 2 mg PO BEDTIME 90 days dulaglutide (Trulicity) 4.5 mg subcut QWEEK empagliflozin (Jardiance) 25 mg PO DAILY ezetimibe 10 mg PO DAILY glipizide ER 5 mg PO DAILY lancets (ITM SoftwareTouch Delica Plus Lancet) As directed magnesium oxide 400 mg PO DAILY 90 days melatonin 10 mg PO DAILY PRN metformin 1,000 mg PO .twice a day omeprazole 40 mg PO DAILY onabotulinumtoxinA (Botox) 100 units IM ONCE 12 weeks polyethylene glycol 3350 (Miralax) 17 grams PO DAILY PRN 30 days quetiapine 50 mg (2 x 25 mg) PO BEDTIME 90 days riboflavin (vitamin B2) 400 mg PO DAILY 90 days sumatriptan succinate take 1 tab at onset of headache; if no relief, may repeat 1 tab after at least 2 hrs; max = 2 tabs/24 hrs orally PRN; 30 days valsartan-hydrochlorothiazide 160-25 mg 1 tab PO DAILY HPI Comments Details: Right-handed 59-yr-old male presents for f/u visit, accompanied by his . Interval changes/concerns: * Today he notes his Botox for the right facial blepharospasm seems to wear off a few weeks before the next injection is due, knees having increased right hemifacial spasms, which is bothersome, as uncomfortable and embarrassing. * He did have baseline neuropsychological testing, results of which showed mild cognitive impairment with depression and marked anxiety. Recommendations included doing cognitive therapy, which he has already completed; increasing exercise; establishing care with a psychiatrist and a therapist-he had tried seeing a therapist at [facility] but the person left and he was told that to see a therapist at the [facility] would take more than a year and a half. We did discuss starting an antidepressant/antianxiety agent at this time, however he like to hold adding new scheduled medications to his regimen. For abnormal brain MRI: He has had a couple of episodes of horizontal diplopia Feels like he cannot move his right eye well. He has occasional top of head pain. His [facility] and does not feel f/u serial head imaging is indicated unless he develops new s/s. For migraine: Having occassional migraine attacks, where he needs to lay down. He is often photophobic. He states his typical migraine comes and goes- pressure on the crown of the head a/w photophobia, right eye blurry vision, activity intolerance. Using Sumatriptan p.r.n. and lays down which helps. He did have recent eye and retinal exams. For PD: Pt's current PD medication regimen: Rytary 61.25-245mg cap, 1 cap QID at 9pm, 1pm, 5pm, 9-10pm, Clonazepam 2mg qhs, quetiapine 50mg qhs. * New Rytary dose is working better- occassionally wears off, but feels it overall better ADL's: helping, has a shower bench Vision: He is followed closely by Ophthalmology, is undergone previous left eye vitreous injection Speech: Voice- fluctuates can be softer or stronger. Still slurs sometimes. Swallowing: Denies any issues Cough: None Drooling: Yes, a bit more from the right side Orthostatic lightheadedness: Just a couple of times. Constipation: Improved with prn miralax. Freezing: At times. Stiffness: Moving a bit better. * He continues to have left elbow discomfort s/p left carpal tunnel repair and left elbow ulnar nerve anterior transposition procedure on Feb 01 2025, through [facility]. * His neck can be tight, has had C7-& cervical injections- through [facility] pain management. Tremor: Occasionally- mild Gait/Falls: No falls. Balance can be off a bit. Did PT last year. Hallucinations: He continues to have hallucinations- feels like someone is there but no one is or seeing shadows, animals, insects. Cognition: States ok, but has some forgetfulness, word finding difficulties, losing his train of thought- in Indonesian or Prydeinig. Mood: He feels his mood may be down at times, but overall stable Sleep: Patient states his sleep is stable- overall less REM sleep behaviors. P atient states he may not have any episodes for a few weeks and other weeks he has a couple of nights with REM sleep behaviors. * He is compliant w/ clonazapem and quetiapine. * Patient was previously followed by [facility] sleep Medicine w/ Dr. Williamson, however transitioned care of his REM sleep behavior disorder to neurology. Exercise: almost nothing Skin- previous- has f/u derm appt scheduled * previous right palm biospy- negative for discolored skin lesion. [facility] Medical History (Updated 08/24/25 @ 09:42 by HANNAH Gomez) Parkinson's disease without dyskinesia Rapid eye movements from side to side GERD (gastroesophageal reflux disease) Diverticulosis HTN (hypertension) Parkinson disease Diabetes Surgical History H/O elbow surgery H/O hernia repair History of vasectomy History of carpal tunnel release Family History Father Cancer Mother Hyperlipidemia Diabetes Social History Alcohol intake: never Patient Tobacco Use Status: Former Tobacco user Tobacco use type: Cigar Cigarettes Per Day: 1 Physical Exam Vital Signs: Last Vital Signs Pulse 96 08/24/25 08:05 BP 100/80 08/24/25 08:05 Pulse Ox 98 08/24/25 08:05 Oxygen Delivery Method Room Air 08/24/25 08:05 BMI result Body Mass Index 28.8 Const General: cooperative and no acute distress Resp Effort & Inspection: normal respiratory effort and able to speak in complete sentences Neuro Other: General:? A&O x's 3. Right facial asymmetry: eye decreased palpebral fissure- mild. Right lower facial droop. Right eye and lower face- mild, recurrent hemifacial spasm Expression:? Decreased expression and blink Voice/Speech:? Soft voice, no appreciable dysarthria today MS 5/5 throughout Tremor:? No tremor noted today Tone:? Bilateral R > L upper extremity tone- mild Dyskinesia:? None FFM:? Mild bradykinesia more so on right Foot taps:? Mild bradykinesia worse on right Gait:? Slow to stand, slight stooped, slightly decreased arm swing short steps steady with cane Psych:? Pleasant affect. Assessment & Plan Assessment & Plan (1) Parkinson's disease without dyskinesia, with fluctuations: Code(s): G20.A2 - Parkinson's disease without dyskinesia, with fluctuations Category: Medical (2) Paresthesia of left upper extremity: Code(s): R20.2 - Paresthesia of skin Category: Medical (3) Neural foraminal stenosis of cervical spine: Code(s): M48.02 - Spinal stenosis, cervical region Category: Medical (4) Migraine, unspecified, not intractable, without status migrainosus: Comment: childhood onset Code(s): G43.909 - Migraine, unspecified, not intractable, without status migrainosus Category: Medical Qualifiers: Migraine type: migraine (< 15 days per month) with aura Qualified Code(s): G43.109 - Migraine with aura, not intractable, without status migrainosus (5) Abnormal finding on MRI of brain: Comment: left superior medial parietal cortex 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 Code(s): R90.89 - Other abnormal findings on diagnostic imaging of central nervous system Category: Medical (6) REM sleep behavior disorder: Comment: Secondary to Parkinson's disease Code(s): G47.52 - REM sleep behavior disorder Category: Medical (7) Cognitive dysfunction: Code(s): F09 - Unspecified mental disorder due to known physiological condition Category: Medical Plan For left superior medial parietal cortex abnormality: Reviewed last visit notes from neurosurgery, [facility], [facility]. Continue to monitor clinically. Patient advised to notify us with any new neurological symptoms, such as new headache, diplopia, acute vision changes. For left carpal tunnel syndrome status post repair and ulnar repair: Follow-up with [facility] orthopedic and pain management as scheduled. ? For right eye blepherospasm: Trial Baclofen 5mg tab- 1 tab 3 times a day (or alternatively 5mg qam and 10mg at bedtime) through next Botox appt on 09/06/2025 Continue Botox up to 100 units in right eye/cheek muscles q 12 weeks- w/ Dr Hernandez * Advised him to talk with Dr. Hernandez about possibly increasing his Botox dose if this will not increase risk for right facial weakness ? For Parkinson's and REM sleep behavior disorder: * Continue Rytary 61.25-245mg cap- 1 cap po QID. * Previous trials: CD LD IR- ineffective, not tolerated. CD LD ER- ineffective, off times, increasing hallucinations. * For sleep and REM sleep behavior disorder: * Continue Quetiapine 25mg- 2 tabs (50mg) qhs- monitor hallucinations. * Continue Melatonin 10mg. * Continue Clonazepam 2 mg for REM sleep behaviors. * Keep area around bed free from clutter. * For runny nose while eating- try to do your speech therapy exercises regularly If this continues, consider retrying SUPPLY AND DISTRIBUTION MANAGER Tx. * For constipation- Continue dietary fiber, taking prunes/prune juice, Miralax- use prn no BM in 2 days.. * For lightheadedness prevention- take 1 small bottle sports drink in am. * For mood- continue to monitor * Advised patient and to look into attending a Parkinson's disease support group. * For mild cognitive impairment with depression and marked anxiety: * Encouraged patient to consider starting psychotherapy, states that we will reach out to his PCP office who has a licensed investment sales assistant who can provide therapy and whom they like * Discussed starting and antidepressant, such as escitalopram, however patient would like to hold for now * Advised to increase exercise- walking, riding a stationary bike, going to the gym, were starting a PD exercise program. An ideal goal is at least 30 minutes per day. * [facility] will assist patient in identifying the process to determine if his Parkinson's disease is service connected * Future considerations: Nuplazid ? For Migraine: * Continue Riboflavin 400mg daily in am * Continue Magnesium 400mg daily at bedtime * Continue Sumatriptan prn. * Future considerations- trial of as needed Nurtec or Ubrelvy. Will follow-up upon review of above and patient to follow-up in clinic in 3-6 months or sooner prn. Medications: New baclofen 5 mg PO TID PRN 90 tabs 0RF muscle spasm 30 days Refilled sumatriptan succinate take 1 tab at onset of headache; if no relief, may repeat 1 tab after at least 2 hrs; max = 2 tabs/24 hrs orally PRN; 12 tabs 6RF m igraine headache 30 days Coding Level of Care Code Complex visit Add On G2211 Diagnoses Parkinson's disease without dyskinesia, with fluctuations G20.A2 Paresthesia of left upper extremity R20.2 Neural foraminal stenosis of cervical spine M48.02 Migraine with aura and without status migrainosus, not intractable G43.109 Migraine type: migraine (< 15 days per month) with aura Abnormal finding on MRI of brain R90.89 REM sleep behavior disorder G47.52 Cognitive dysfunction F09
== END 2025-08-24 09:23 | disposition home or self-care (01) ==
LOC: HO.HSMS 07:43
PROVIDERS: PCP Internal Medicine Sports Medicine; Visit Provider Nurse Practitioner Family
DX: G20.A2 Parkinson's disease without dyskinesia, with fluctuations (principal); R20.2 Paresthesia of skin; M48.02 Spinal stenosis, cervical region; G43.109 Migraine with aura, not intractable, without status migrainosus; R90.89 Other abnormal findings on diagnostic imaging of central nervous system; G47.52 REM sleep behavior disorder; R41.89 Other symptoms and signs involving cognitive functions and awareness
CPT/HCPCS: 99214; G2211

== ENCOUNTER → 2025-08-24 07:42 | Outpatient (BNVA) | payer OTHER, SELFPAY | PROVIDERS: PCP Internal Medicine Sports Medicine; Visit Provider Nurse Practitioner Family | DX: G20.A2 Parkinson's disease without dyskinesia, with fluctuations (principal); R20.2 Paresthesia of skin; M48.02 Spinal stenosis, cervical region; G43.109 Migraine with aura, not intractable, without status migrainosus; R90.89 Other abnormal findings on diagnostic imaging of central nervous system; G47.52 REM sleep behavior disorder; F09 Unspecified mental disorder due to known physiological condition | CPT/HCPCS: 99212 ==

== ENCOUNTER 2025-09-06 09:42 | Outpatient (AMB) | payer OTHER, SELFPAY ==
--- NOTE | 2025-09-06 09:57 | MHC.OFFVIS ---
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 Accompanied by: Spouse Allergies atorvastatin (From Lipitor) Allergy (Mild, Verified 09/06/25 09:58) pain Medication List - Last Reconciled 09/06/25 by Taryn Hernandez MD amlodipine 10 mg PO DAILY baclofen 5 mg PO TID PRN 30 days carbidopa-levodopa 61.25-245 mg ER (Rytary) 1 cap PO QID 90 days carboxymethylcellulose sodium (Refresh Contacts eye drops) 1 drp ophthalmic (eye) BID clonazepam 2 mg PO BEDTIME 90 days dulaglutide (Trulicity) 4.5 mg subcut QWEEK empagliflozin (Jardiance) 25 mg PO DAILY ezetimibe 10 mg PO DAILY glipizide ER 5 mg PO DAILY lancets (Earth Meduch Delica Plus Lancet) As directed magnesium oxide 400 mg PO DAILY 90 days melatonin 10 mg PO DAILY PRN metformin ER 1,000 mg PO BID omeprazole 40 mg PO DAILY onabotulinumtoxinA (Botox) 100 units IM ONCE 12 weeks polyethylene glycol 3350 (Miralax) 17 grams PO DAILY PRN 30 days quetiapine 50 mg (2 x 25 mg) PO BEDTIME 90 days riboflavin (vitamin B2) 400 mg PO DAILY 90 days sumatriptan succinate take 1 tab at onset of headache; if no relief, may repeat 1 tab after at least 2 hrs; max = 2 tabs/24 hrs orally PRN; 30 days valsartan-hydrochlorothiazide 160-25 mg 1 tab PO DAILY HPI Comments Details: 60y/o male comes for treatment of her blepherospasm , hemifacial spasm with botox He was started on baclofen 5 mg tid as needed for breakthrough spasms Effectiveness of last two botox: Change in intensity of spasms-decreased Change in frequency of spasms-decreased Changes in quality of life-improved Have at least three months elapsed since last treatment (Last botox date - frequency of injections) yes Botulinum toxin type A Lot no [id number] Exp 08/2027 was diluted with 1 cc of normal saline at a concentration of 10units in 0.1 cc. Side effects were discussed and an informed consent was obtained. Muscles injected Right Lateral canthus - 15 units Right Lateral Lower eyelid-15units Right Medial lower eyelid- 5 units Right Nasolabial fold 5 units Right zygomaticus 10 units right lower lip 5 units Total used 55 units discarded 45 units PFSH Medical History Parkinson's disease without dyskinesia Rapid eye movements from side to side GERD (gastroesophageal reflux disease) Diverticulosis HTN (hypertension) Parkinson disease Diabetes Surgical History H/O elbow surgery H/O hernia repair History of vasectomy History of carpal tunnel release Family History Father Cancer Mother Hyperlipidemia Diabetes Social History Alcohol intake: never Patient Tobacco Use Status: Former Tobacco user Tobacco use type: Cigar Cigarettes Per Day: 1 Physical Exam Vital Signs: Last Vital Signs Pulse 94 09/06/25 09:58 BP 110/70 09/06/25 09:58 Pulse Ox 96 09/06/25 09:58 Oxygen Delivery Method Room Air 09/06/25 09:58 BMI result Body Mass Index 29.2 Const General: cooperative and no acute distress Resp Effort & Inspection: normal respiratory effort and able to speak in complete sentences Neuro Other: General:? A&O x's 3. Right facial asymmetry: eye decreased palpebral fissure- mild. Right lower facial droop. Right eye and lower face- mild, recurrent hemifacial spasm Expression:? Decreased expression and blink Voice/Speech:? Soft voice, no appreciable dysarthria today MS 5/5 throughout Tremor:? No tremor noted today Tone:? Bilateral R > L upper extremity tone- mild Dyskinesia:? None FFM:? Mild bradykinesia more so on right Foot taps:? Mild bradykinesia worse on right Gait:? Slow to stand, slight stooped, slightly decreased arm swing short steps steady with cane Psych:? Pleasant affect. Office Procedures Botulinum toxin Injection 66674 - Facial Nerve Procedure code (CPT) selection complete Office Meds onabotulinumtoxinA 100 unit solution for injection Performing Provider: Taryn Hernandez MD Performing Location: [facility] [place] [facility] Administered by: Taryn Hernandez MD on 09/06/25 11:04 Dose Route Admin Location Dispensed Lot Number Expiration Date [facility] [place] Review Nurse 55 unit subcut 100 units [id number] ALLERGAN/BOTOX Total Dispensed Waste 100 units 45 % Comments: see hpi Assessment & Plan Assessment & Plan (1) Blepharospasm of right eye: Comment: s/p right orbital fracture- Code(s): G24.5 - Blepharospasm Category: Medical Plan Patient tolerated the procedure well. He will call with any side effects Orders: Orders AMB Botulinum toxin Injection Today G24.5 - Blepharospasm Coding Level of Care Code Est Pt Level 1 (21027) Diagnoses Blepharospasm of right eye G24.5 CPT Codes Botox Injection - Botox 2: 68596 - Facial Nerve ([id number])
[2025-09-06 09:58] VITALS: BP 110/70; PULSE 94; O2SAT 96; BMI 29.2
== END 2025-09-06 12:57 | disposition home or self-care (01) ==
LOC: HO.HSMS 09:43
PROVIDERS: PCP Internal Medicine Sports Medicine; Visit Provider Psychiatry & Neurology Neurology
DX: G24.5 Blepharospasm (principal)
CPT/HCPCS: 64612

== ENCOUNTER → 2025-09-06 09:42 | Outpatient (BNVA) | payer OTHER, SELFPAY | PROVIDERS: PCP Internal Medicine Sports Medicine; Visit Provider Psychiatry & Neurology Neurology | DX: G24.5 Blepharospasm (principal) | CPT/HCPCS: 64612; 99211; J0585 ==